=== PATIENT | female | born 1945 | race Caucasian/White ===

== ENCOUNTER 2016-12-06 21:07 | Inpatient (IN) | payer OTHER ==
--- NOTE | 2016-12-06 21:24 | PDOC ---
History of Present Illness <Kelsie Watkins - Last Filed: 12/07/16 00:23> - History of Present Illness Initial Comments: 12/06/16 22:41 The patient is a 71 year old female with a past medical hx of diabetes, hypercholesterolemia, hernia, and kidney stones who presents to the ED complaining of pain to her epigastric region radiating into the center of her back since 1200 this afternoon. The patient states she bent over to pick something up and suddenly felt pain to her epigastric region. She reports she felt the pain when she bent forward not when she stood back up straight. She reports the pain was radiating into her back between her shoulder blades, but now primarily feels the pain in the epigastric region while in the ED. She states the pain is worse when sitting down and exacerbated with inspiration. She rates the pain a 10/10 in severity, sharp, and constant. She has never felt pain like this in the past. The patient is also complaining of left leg pain for the past week. This pain is localized to the back of her left thigh. The patient reports waves of nausea but denies vomiting, SOB, chest pain, diarrhea, constipation <Radha Lemos - Last Filed: 12/07/16 00:31> - General Chief Complaint: Pain, Acute Stated Complaint: ABD PAIN Time Seen by Provider: 12/06/16 21:13 Past History - Past Medical History Diabetes: Yes Disorders: Yes (kidney stones) HTN: Yes Hypercholesterolemia: Yes Suicide Attempt (Hx): No - Immunization History Immunization Up to Date: Yes - Psycho/Social/Smoking Cessation Hx Anxiety: No Suicidal Ideation: No Smoking History: Never smoked Have you smoked in the past 12 months: No Hx Alcohol Use: No Drug/Substance Use Hx: No Substance Use Type: None Hx Substance Use Treatment: No <Kelsie Watkins - Last Filed: 12/07/16 00:23> <Radha Lemos - Last Filed: 12/07/16 00:31> - Past Medical History Allergies/Adverse Reactions: Allergies Allergy/AdvReac Type Severity Reaction Status Date / Time No Known Drug Allergies Allergy Verified 07/31/15 17:44 Home Medications: Ambulatory Orders Metformin HCl [Glucophage -] 500 mg PO BID 05/02/14 Simvastatin 20 mg PO HS 05/02/14 Lisinopril [Prinivil] 20 mg PO DAILY 04/17/15 Aspirin [Herminio Chewable] 81 mg PO DAILY 12/06/16 Cyanocobalamin (Vitamin B-12) [Vitamin B-12] 1,000 mcg PO DAILY 12/06/16 Sertraline HCl [Zoloft -] 100 mg PO DAILY 12/06/16 Review of Systems - Review of Systems Able to Perform ROS?: Yes Comments:: 12/06/16 22:41 CONSTITUTIONAL: Absent: fever, chills, diaphoresis, generalized weakness, malaise, loss of appetite HEENT: Absent: rhinorrhea, nasal congestion, throat pain, throat swelling, difficulty swallowing, mouth swelling, ear pain, eye pain, visual Changes CARDIOVASCULAR: Absent: chest pain, syncope, palpitations, irregular heart rate, lightheadedness , peripheral edema RESPIRATORY: Absent: cough, shortness of breath, dyspnea with exertion, orthopnea, wheezing, stridor, hemoptysis GASTROINTESTINAL: +Epigastric abdominal pain, nausea. Absent: abdominal distension, nausea, vomiting, diarrhea, constipation, melena, hematochezia GENITOURINARY: Absent: dysuria, frequency, urgency, hesitancy, hematuria, flank pain, genital pain MUSCULOSKELETAL: +Back pain. Absent: joint swelling SKIN: Absent: rash, itching, pallor HEMATOLOGIC/IMMUNOLOGIC: Absent: easy bleeding, easy bruising, lymphadenopathy, frequent infections ENDOCRINE: Absent: unexplained weight gain, unexplained weight loss, heat intolerance, cold intolerance NEUROLOGIC: Absent: headache, focal weakness or paresthesias, dizziness, unsteady gait, seizure, mental status changes, bladder or bowel incontinence PSYCHIATRIC: Absent: anxiety, depression, suicidal or homicidal ideation, hallucinations. <Radha Lemos - Last Filed: 12/07/16 00:31> *Physical Exam - Vital Signs Last Vital Signs Temp Pulse Resp BP Pulse Ox 97.9 F 67 18 152/82 100 12/06/16 21:18 12/06/16 21:18 12/06/16 21:18 12/06/16 21:18 12/06/16 21:18 <Kelsie Watkins - Last Filed: 12/07/16 00:23> - Vital Signs Last Vital Signs Temp Pulse Resp BP Pulse Ox 97.9 F 67 18 152/82 100 12/06/16 21:18 12/06/16 21:18 12/06/16 21:18 12/06/16 21:18 12/06/16 21:18 - Physical Exam Comments: 12/06/16 22:41 GENERAL: Well developed, well nourished. Awake and alert. No acute distress. HEENT: Normocephalic, atraumatic. PERRLA, EOMI. No conjunctival pallor. Sclera are non- icteric. Moist mucous membranes. Oropharynx is clear. NECK: Supple. Full ROM. No JVD. Carotid pulses 2+ and symmetric, without bruits. No thyromegaly. No lymphadenopathy. CARDIOVASCULAR: Regular rate and rhythm. No murmurs, rubs, or gallops. Distal pulses are 2+ and symmetric. PULMONARY: No evidence of respiratory distress. Lungs clear to auscultation bilaterally. No wheezing, rales or rhonchi. ABDOMINAL: +Distended, Soft, epigastric tenderness to deep palpation. No rebound or guarding. No organomegaly. Normoactive bowel sounds. MUSCULOSKELETAL Normal range of motion at all joints. No bony deformities or tenderness. No CVA tenderness. EXTREMITIES: No cyanosis. No clubbing. No edema. No calf tenderness. SKIN: Warm and dry. Normal capillary refill. No rashes. No jaundice. NEUROLOGICAL: Alert, awake, appropriate. Cranial nerves 2-12 intact. No deficits to light touch and temperature in face, upper extremities and lower extremities. No motor deficits in the in face, upper extremities and lower extremities. PSYCHIATRIC: Cooperative. Good eye contact. Appropriate mood and affect. <Radha Lemos - Last Filed: 12/07/16 00:31> Heart Score/ECG Review - ECG Impressions Comment:: 12/07/16 00:31 EKG NSR at a rate of 69 BPM <Radha Lemos - Last Filed: 12/07/16 00:31> ED Treatment Course - LABORATORY CBC & Chemistry Diagram: 12/06/16 22:35 12/06/16 22:35 <Kelsie Watkins - Last Filed: 12/07/16 00:23> - LABORATORY CBC & Chemistry Diagram: 12/06/16 22:35 12/06/16 22:35 - RADIOLOGY Radiograph Interpretation: 12/06/16 23:35 Right upper quadrant abdomen ultrasound Clinical information: epigastric pain radiating to back Several gallbladder calculi are noted the most prominent measuring 2.7 cm in diameter. No definite gallbladder overdistention is seen however there is mild diffuse nonspecific gallbladder wall thickening. No pericholecystic fluid is identified. The common bile duct is dilated with a 1.2 cm diameter. No obvious intraductal calculus is seen. Transabdominal sonography is moderately sensitive in this regard. There is mild hepatomegaly. No obvious hepatic mass lesion is noted. There is no definite abnormal hepatic echotexture. The pancreas is not well visualized due to obscuring bowel gas. There is no right-sided hydronephrosis. No free intraperitoneal fluid. IMPRESSION: Cholelithiasis is identified. There is mild diffuse nonspecific gallbladder wall thickening which may be on the basis of acute or chronic cholecystitis. No previous ultrasound studies are available at this facility for direct comparison. The common bile duct is dilated with a 1.2 cm diameter. No definite biliary tract dilatation was present at the time of an abdomen CT exam of 04/17/2015. MRI/MRCP evaluation may be considered. If there is a significant contraindication to performance of MRI/MRCP correlate with CT. The pancreas is obscured due to overlapping bowel gas. Reported By: Florentino Fleming MD 12/06/16 [id number] <Radha Lemos - Last Filed: 12/07/16 00:31> Medical Decision Making - Medical Decision Making 12/07/16 00:23 71 yo female p/w epigastric pain and nausea that started today PMH diabetes,kidney stones Abd exam-sl distended,no rebound but epigastric tenderness to deep palpation labs reviewed and her LFT are very elevated and lipase about 600 gallbaldder US shows dilated CBD and inflamed gallbladder -pt received anti emetics,IV fluid, Antibiotics and pain medications Diff diag: cholecystitis, pancreatitis -case discussed with hospitalist and agreed to med/surg admission plan GI consult, MRCP later in the day <Kelsie Watkins - Last Filed: 12/07/16 00:23> *DC/Admit/Observation/Transfer - Discharge Dispostion Admit: Yes <Kelsie Watkins - Last Filed: 12/07/16 00:23> - Attestations Scribe Attestion: 12/06/16 22:42 Documentation prepared by Radha Lemos, acting as medical data analyst for Kelsie Watkins MD/DO. <Radha Lemos - Last Filed: 12/07/16 00:31> Diagnosis at time of Disposition: Elevated liver enzymes, Acute gallstone pancreatitis Diabetes mellitus Qualifiers: Diabetes mellitus type: type 2 Diabetes mellitus complication status: with hyperglycemia Diabetes mellitus intermediate insulin use: without intermediate use Qualified Code(s): E11.65 - Type 2 diabetes mellitus with hyperglycemia - Referrals Referrals: Hero Olivia MD [Primary Care Provider] -
[2016-12-06 22:47] LABS: EOSINOPHIL 0.3 % (0-4.5); MCH 29.8 pg (25.7-33.7); MCHC 33.8 g/dl (32.0-36.0); MEAN CELL VOLUME 88.2 fl (80-96); MEAN PLT VOLUME 7.4 fl (7.5-11.1); NEUTROPHILS 85.6 % (42.8-82.8); PLATELET COUNT 254 K/MM3 (134-434); RDW 14.7 % (11.6-15.6); WHITE BLOOD COUNT 8.7 K/mm3 (4.0-10.0)
[2016-12-06 22:48] LABS: URINE APPEARANCE CLEAR; URINE BILIRUBIN NEGATIVE (NEGATIVE); URINE BLOOD NEGATIVE (NEGATIVE); URINE COLOR YELLOW; URINE GLUCOSE (UA) NEGATIVE (NEGATIVE); URINE KETONE TRACE (NEGATIVE); URINE LEUK ESTERASE NEGATIVE (NEGATIVE); URINE NITRITE NEGATIVE (NEGATIVE); URINE PROTEIN NEGATIVE (NEGATIVE); URINE UROBILINOGEN NEGATIVE E.U./dl (0.2-1.0)
[2016-12-06 23:08] LABS: ALBUMIN 3.9 g/dl (3.4-5.0); AMYLASE 65 U/L (25-115); ANION GAP 9 (8-16); BILIRUBIN,TOTAL 1.8 mg/dL (0.2-1.0); CO2 26 mmol/L (21-32); CREATININE 0.7 mg/dL (0.55-1.02); GLUCOSE,RANDOM 139 mg/dL (74-106); SGOT/AST 377 U/L (15-37); SGPT/ALT 158 U/L (12-78); TOT PROT 7.5 g/dl (6.4-8.2)
[2016-12-06 23:10] LABS: ALK PHOS 175 U/L (45-117); TROPONIN I < 0.02 ng/ml (0.00-0.05)
[2016-12-06 23:17] LABS: INR 1.09 (0.82-1.09)
[2016-12-06] MEDS ORDERED: PIPERACILLIN/TAZOB 3.375 GM 3.375 GM in DEXTROSE 5%-WATER - 50 ML IVPB ONE (23:35)
[2016-12-06] MEDS ORDERED: HYDROmorphone HCL CARPU-JECT 1 MG/1 ML DISP.SYRIN ONE (23:43)
[2016-12-06] MEDS ORDERED: PIPERACILLIN/TAZOB 3.375 GM 50 ML IVPB ONE (23:43)
[2016-12-06] MEDS ORDERED: KETOROLAC TROMETHAMINE 30 MG/1 ML VIAL IVPUSH ONE (23:44)
[2016-12-06] MEDS ORDERED: KETOROLAC TROMETHAMINE 30 MG/1 ML VIAL ONE (23:45)
[2016-12-06] MEDS: HYDROmorphone HCL CARPU-JECT 1 MG/1 ML DISP.SYRIN IVPUSH ONE ×2 (23:50)
--- NOTE | 2016-12-07 00:10 | PN ---
<Edward Addisonmacario - Last Filed: 12/07/16 00:10> Teaching Attending Note Name of Resident: Souleymane Canas ATTENDING PHYSICIAN STATEMENT I saw and evaluated the patient. I reviewed the resident's note and discussed the case with the resident. I agree with the resident's findings and plan as documented. SUBJECTIVE: OBJECTIVE: ASSESSMENT AND PLAN: <Susan Joiner - Last Filed: 12/07/16 01:18> Teaching Attending Note ATTENDING PHYSICIAN STATEMENT I saw and evaluated the patient. I reviewed the resident's note and discussed the case with the resident. I agree with the resident's findings and plan as documented. SUBJECTIVE: The patient is a 71 yo F with PMHx of Diabetes, HLD, hernia and nephrolithiasis who presents with epigastric pain radiating to her back and and shoulder blades. OBJECTIVE: Last Vital Signs Temp Pulse Resp BP Pulse Ox 97.9 F 67 18 152/82 100 12/06/16 21:18 12/06/16 21:18 12/06/16 21:18 12/06/16 21:18 12/06/16 21:18 GEN: NAD HEENT: NCAT, PERRL CARD: RRR, S1 S2 RESP: CTAB ABD: NT, BWS x4 +McBurney's sign EXT: - CCE CBCD WBC 8.7 K/mm3 (4.0-10.0) 12/06/16 22:35 RBC 4.60 M/mm3 (3.60-5.2) 12/06/16 22:35 Hgb 13.7 GM/dL (10.7-15.3) 12/06/16 22:35 Hct 40.6 % (32.4-45.2) 12/06/16 22:35 MCV 88.2 fl (80-96) 12/06/16 22:35 MCHC 33.8 g/dl (32.0-36.0) 12/06/16 22:35 RDW 14.7 % (11.6-15.6) 12/06/16 22:35 Plt Count 254 K/MM3 (134-434) 12/06/16 22:35 MPV 7.4 fl (7.5-11.1) L 12/06/16 22:35 CMP Sodium 140 mmol/L (136-145) 12/06/16 22:35 Potassium 4.3 mmol/L (3.5-5.1) D 12/06/16 22:35 Chloride 105 mmol/L (98-107) 12/06/16 22:35 Carbon Dioxide 26 mmol/L (21-32) 12/06/16 22:35 Anion Gap 9 (8-16) 12/06/16 22:35 BUN 10 mg/dL (7-18) 12/06/16 22:35 Creatinine 0.7 mg/dL (0.55-1.02) 12/06/16 22:35 Creat Clearance w eGFR > 60 (>60) 12/06/16 22:35 Calcium 9.0 mg/dL (8.5-10.1) 12/06/16 22:35 Total Bilirubin 1.8 mg/dL (0.2-1.0) H D 12/06/16 22:35 AST 377 U/L (15-37) H D 12/06/16 22:35 ALT 158 U/L (12-78) H D 12/06/16 22:35 Alkaline Phosphatase 175 U/L (45-117) H 12/06/16 22:35 Total Protein 7.5 g/dl (6.4-8.2) 12/06/16 22:35 Albumin 3.9 g/dl (3.4-5.0) D 12/06/16 22:35 Imaging: Abdomen US IMPRESSION: Cholelithiasis is identified. There is mild diffuse nonspecific gallbladder wall thickening which may be on the basis of acute or chronic cholecystitis. No previous ultrasound studies are available at this facility for direct comparison. The common bile duct is dilated with a 1.2 cm diameter. No definite biliary tract dilatation was present at the time of an abdomen CT exam of 04/17/2015. MRI/MRCP evaluation may be considered. If there is a significant contraindication to performance of MRI/MRCP correlate with CT. The pancreas is obscured due to overlapping bowel gas. Reported By: Florentino Fleming MD ASSESSMENT AND PLAN: The patient is a 71 yo F with PMHx of Diabetes, HLD, hernia and nephrolithiasis who presents with epigastric pain found to have pancreatitis most likely as a result of gallstones. 1.)Acute Gallstone Pancreatitis - NPO - IVF - MRCP in AM - Surgery consult - S/p Zosyn in ED - Pain control - Coags in AM - Type and Screen 2.) Diabetes - Fingersticks RAISS - Hold metformin 3.) HTN - Hold lisinopril for now 4.)HLD - Hold statin 5.)DVT PPx - SCDs low risk Admit to Med surg Documentation prepared by Susan Joiner, acting as durable medical equipment repairer for Maryam Addison MD.
[2016-12-07] MEDS ORDERED: ONDANSETRON 4 MG/2 ML VIAL IVPB PRN (00:17)
[2016-12-07] MEDS ORDERED: morphine CARPU-JECT 4 MG/1 ML DISP.SYRIN IVPUSH PRN (00:17)
[2016-12-07] MEDS: SODIUM CHLORIDE 1,000 ML IV SCH (00:36)
--- NOTE | 2016-12-07 01:20 | MSN ---
Admitting History and Physical - Admission Chief Complaint: abdominal pain History of Present Illness: 71 yo female with pmhx of cholelithiasis, HTN, HLD, DM, kidney stones and hiatal hernia presents with acute onset, sharp, constant 10/10 abdominal that radiates to the back since noon yesterday that occurred when she was bending over. She says she feels better when she is walking around. The pain gets worse when she sits. The pain does not get worse or better when shes eats food. She says she does not eat a good diet. Since she has had pain medicine she is not in any discomfort. She denies headache, weakness, dizziness, fever, changes in urination and bowel movements. She noted that her abdomen is more distended and that she is experiencing nausea. History Source: Patient Limitations to Obtaining History: No Limitations - Past Medical History Cardiovascular: Yes: HTN, Hyperlipdemia Gastrointestinal: Yes: Hiatal Hernia Hepatobiliary: Yes: Cholelithiasis Renal/: Yes: Renal Calculi, UTI Endocrine: Yes: Diabetes Mellitus - Smoking History Smoking history: Never smoked Have you smoked in the past 12 months: No - Alcohol/Substance Use Hx Alcohol Use: No History of Substance Use: reports: None - Social History ADL: Independent History of Recent Travel: No Home Medications - Allergies Allergies/Adverse Reactions: Allergies Allergy/AdvReac Type Severity Reaction Status Date / Time No Known Drug Allergies Allergy Verified 07/31/15 17:44 - Home Medications Home Medications: Ambulatory Orders Metformin HCl [Glucophage -] 500 mg PO BID 05/02/14 Simvastatin 20 mg PO HS 05/02/14 Lisinopril [Prinivil] 20 mg PO DAILY 04/17/15 Aspirin [Herminio Chewable] 81 mg PO DAILY 12/06/16 Cyanocobalamin (Vitamin B-12) [Vitamin B-12] 1,000 mcg PO DAILY 12/06/16 Sertraline HCl [Zoloft -] 100 mg PO DAILY 12/06/16 Family Disease History - Family Disease History Family Disease History: [place]: Father Review of Systems - Review of Systems Constitutional: reports: Chills, Diaphoresis Cardiovascular: reports: No Symptoms Respiratory: reports: No Symptoms Gastrointestinal: reports: Abdominal Pain, Nausea Genitourinary: reports: No Symptoms Musculoskeletal: reports: Back Pain Neurological: reports: No Symptoms Physical Examination Vital Signs: Vital Signs Temperature 97.9 F 12/06/16 21:18 Pulse Rate 67 12/06/16 21:18 Respiratory Rate 18 12/07/16 01:14 Blood Pressure 152/82 12/06/16 21:18 O2 Sat by Pulse Oximetry (%) 100 12/07/16 01:14 Constitutional: Yes: Well Nourished, No Distress, Calm Eyes: Yes: WNL, Conjunctiva Clear HENT: Yes: WNL, Atraumatic, Normocephalic Cardiovascular: Yes: WNL, Regular Rate and Rhythm, S1, S2 Respiratory: Yes: WNL, Regular, CTA Bilaterally Gastrointestinal: Yes: WNL, Normal Bowel Sounds, Soft, Distention, Hernia, Tenderness, Tenderness, Epigastrium Edema: No Neurological: Yes: WNL, Alert, Oriented Psychiatric: Yes: WNL, Alert, Oriented Imaging - Results Chest X-ray: Image Reviewed Ultrasound: Report Reviewed (cholelithiasis and CBD dilation) EKG: Pending Assessment/Plan 71 yo female with pmhx of cholelithiasis, HTN, HLD, DM, kidney stone and hiatal hernia presents with acute onset, sharp, constant 10/10 abdominal that radiates to the back since noon yesterday that occurred when she was bending over. gallstone pancreatitis and cholecystitis -elevated LFT, lipase, pmhx of gallstones -NPO -continue zosyn -IV NS 100ml.hr -pain medication-IV morphine 2mg q6h prn -zofran for nausea -order mrcp -GI consult -Surg consult for possible cholecystectomy DM -hold metformin and start insulin sliding scale -monitor blood glucose HTN -hold lisinopril patient NPO HLD -hold statin Fluid-NS 100ml/hr electrolytes-repeat in morning nutrition-NPO DVT -SCDs b/l GI Pro: IV protonix 40 mg IV daily dispo admitting med-surg
[2016-12-07 04:23] VITALS: BMI 32.8
[2016-12-07] MEDS: INSULIN SLIDING SCALE (NOVOLOG) 1 VIAL SQ SCH ×4 (06:21→21:30)
[2016-12-07 08:27] LABS: BASOPHIL 0.6 % (0-2.0); EOSINOPHIL 0.7 % (0-4.5); MCH 29.5 pg (25.7-33.7); MCHC 33.5 g/dl (32.0-36.0); MEAN CELL VOLUME 88.1 fl (80-96); NEUTROPHILS 77.7 % (42.8-82.8); PLATELET COUNT 216 K/MM3 (134-434); RDW 14.8 % (11.6-15.6); WHITE BLOOD COUNT 6.8 K/mm3 (4.0-10.0)
[2016-12-07 08:48] LABS: INR 1.13 (0.82-1.09); PROTHROMBIN TIME (PATIENT) 12.5 SEC (9.98-11.88)
[2016-12-07 08:50] LABS: ACTIVATED PTT 32.8 SECONDS (26.9-34.4)
[2016-12-07 08:52] LABS: ALBUMIN 3.3 g/dl (3.4-5.0); ANION GAP 8 (8-16); CALCIUM 8.6 mg/dL (8.5-10.1); CO2 26 mmol/L (21-32); CREATININE 0.7 mg/dL (0.55-1.02); GLUCOSE,RANDOM 118 mg/dL (74-106); MAGNESIUM 2.3 mg/dL (1.8-2.4); SGPT/ALT 173 U/L (12-78)
[2016-12-07 08:58] LABS: ALK PHOS 189 U/L (45-117); BILIRUBIN,TOTAL 2.6 mg/dL (0.2-1.0); CHOLESTEROL 209 mg/dL (50-200); LDL CHOLESTEROL (ONLY SJRH) 154 mg/dL (5-100); PHOSPHOROUS 2.9 mg/dL (2.5-4.9); SGOT/AST 301 U/L (15-37); TOT PROT 6.3 g/dl (6.4-8.2)
[2016-12-07 08:59] LABS: ALBUMIN 3.3 g/dl (3.4-5.0); BILIRUBIN,TOTAL 2.6 mg/dL (0.2-1.0); TOT PROT 6.5 g/dl (6.4-8.2)
[2016-12-07] MEDS: PANTOPRAZOLE SODIUM 100 ML IVPB SCH (09:26)
--- NOTE | 2016-12-07 10:53 | CON.GI ---
Consult Consult Specialty:: Gastroenterology Referred by:: hospitalist Reason for Consultation:: abdominal pain - History of Present Illness Chief Complaint: abdominal pain History of Present Illness: this is a 71-year-old female with a history of hyperlipidemia diabetes renal calculi and gallstones who was admitted to the hospital with abdominal pain. She was in a usual state of health yesterday when she developed sudden onset of epigastric pain that radiated to her back and across her shoulders. Pain at times was positional but it continued she came into the emergency room. Evaluation in the emergency room consisted of a CT scan and ultrasound and some lab work. She had an elevated lipase ultrasound showed thickening of the gallbladder wall with some dilation of the common bile duct. No evidence of any gallstones in the common bile duct. CT scan revealed a normal-looking gallbladder with stones and an atrophic pancreas with no peripancreatic fluid to suggest chronic or acute pancreatitis. Her liver was fatty infiltrated on the CT scan. Her lab work revealed an elevated bilirubin and transaminases and elevated alkaline phosphatase. She had no fever.. Currently she complains of some mild epigastric pain. She is awaiting her MRI. She has no nausea vomiting. She had a bowel movement. There is no rectal bleeding or melena. There is no hematemesis. She does have a history of kidney stones. Her urine is normal there is no hematuria. There is no flank pain. - History Source History Provided By: Patient Limitations to Obtaining History: No Limitations - Past Medical History Cardio/Vascular: Yes: HTN, Hyperlipdemia Gastrointestinal: Yes: Hiatal Hernia, Other ( Gallstones?) Hepatobiliary: Yes: Cholelithiasis Renal/: Yes: Renal Calculi, UTI ...: No Heme/Onc: No: Anemia, B12 Deficiency, Bleeding Disorder, Cancer, Current Chemotherapy, Current Radiation Therapy, Hemochromatosis, Hypercoaguable State, Myeloproliferative Synd, Sickle Cell Disease, Sickle Cell Trait, Thrombocytopenia, Other Infectious Disease: No: AIDS, C-Diff, Herpes Zoster, HIV, MRSA, STD's, Tuberculosis, VREF, Other Psych: No: Addictions, Anxiety, Bipolar, Depression, Panic, Psychosis, Schizophrenia, Other Musculoskeletal: No: Bursitis, Chronic low back pain, Hemiparesis, Hemiplegia, Osteoarthritis, Paraplegia, Other ENT: No: Allergic Rhinitis, Sinusitis, Other Endocrine: Yes: Diabetes Mellitus. No: [place]'s Disease, [place]'s Disease, Diabetes Insipidus, Hyperparathyroidism, Hyperthyroidism, Hypothyroidism, Osteopenia, SIADH, Other - Alcohol/Substance Use Hx Alcohol Use: No History of Substance Use: reports: None - Smoking History Smoking history: Never smoked Have you smoked in the past 12 months: No - Social History ADL: Independent History of Recent Travel: No Home Medications - Allergies Allergies/Adverse Reactions: Allergies Allergy/AdvReac Type Severity Reaction Status Date / Time No Known Drug Allergies Allergy Verified 07/31/15 17:44 - Home Medications Home Medications: Ambulatory Orders Metformin HCl [Glucophage -] 500 mg PO BID 05/02/14 Simvastatin 20 mg PO HS 05/02/14 Lisinopril [Prinivil] 20 mg PO DAILY 04/17/15 Aspirin [Herminio Chewable] 81 mg PO DAILY 12/06/16 Cyanocobalamin (Vitamin B-12) [Vitamin B-12] 1,000 mcg PO DAILY 12/06/16 Sertraline HCl [Zoloft -] 100 mg PO DAILY 12/06/16 Family Disease History - Family Disease History Family History: Unremarkable Family Disease History: CA: Father Review of Systems - Review of Systems Constitutional: reports: Loss of Appetite Eyes: reports: No Symptoms HENT: reports: No Symptoms Neck: reports: No Symptoms Cardiovascular: reports: No Symptoms Respiratory: reports: No Symptoms, Other ( Increased abdominal pain with inspiration) Gastrointestinal: reports: Abdominal Pain, Nausea Genitourinary: reports: No Symptoms Musculoskeletal: reports: No Symptoms Integumentary: reports: No Symptoms Neurological: reports: No Symptoms Endocrine: reports: No Symptoms Hematology/Lymphatic: reports: No Symptoms Psychiatric: reports: No Symptoms Physical Exam-GI Vital Signs: Vital Signs Temperature 97.8 F 12/07/16 05:30 Pulse Rate 68 12/07/16 05:30 Respiratory Rate 16 12/07/16 05:30 Blood Pressure 136/62 12/07/16 05:30 O2 Sat by Pulse Oximetry (%) 99 12/07/16 04:16 Constitutional: Yes: No Distress, Obese Eyes: Yes: Conjunctiva Clear HENT: Yes: Normocephalic Cardiovascular: Yes: Regular Rate and Rhythm Respiratory: Yes: Regular Gastrointestinal Inspection: Yes: Distention ...Auscultate: Yes: Normoactive Bowel Sounds ...Palpate: Yes: Tenderness, Epigastium Musculoskeletal: Yes: WNL Extremities: Yes: WNL Neurological: Yes: WNL Psychiatric: Yes: WNL Labs: CBC, BMP 12/07/16 07:45 12/07/16 07:45 INR, PTT INR 1.13 (0.82-1.09) 12/07/16 07:45 Imaging - Results Cat Scan: Image Reviewed Ultrasound: Image Reviewed MRI: Pending Problem List - Problems (1) Acute gallstone pancreatitis Assessment/Plan: scenario is consistent with gallstone pancreatitis. However imaging studies especially the CT scan did not suggest acute cholecystitis. Her laboratory findings show clearance of her lipase but consistent elevation of bilirubin which is mostly direct transaminases and alkaline phosphatase. What is needed here as an MRI to rule out common bile duct stone I will also send acute hepatitis studies. She is to remain n.p.o. she still having some minor abdominal pain she should continue her IV hydration surgical consult was called. Code(s): K85.1 - BILIARY ACUTE PANCREATITIS * DO NOT USE * (2) Acute cholecystitis Assessment/Plan: As above Code(s): K81.0 - ACUTE CHOLECYSTITIS (3) Elevated liver enzymes Assessment/Plan: as above Code(s): R74.8 - ABNORMAL LEVELS OF OTHER SERUM ENZYMES (4) Diabetes mellitus Assessment/Plan: would hold metformin for any further contrast studies Code(s): E11.9 - TYPE 2 DIABETES MELLITUS WITHOUT COMPLICATIONS Qualifiers: Diabetes mellitus type: type 2 Diabetes mellitus complication status: with hyperglycemia Diabetes mellitus skilled nursing insulin use: without parts counterman use Qualified Code(s): E11.65 - Type 2 diabetes mellitus with hyperglycemia; 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
--- NOTE | 2016-12-07 13:57 | EKG ---
Test Reason : Blood Pressure : / mmHG Vent. Rate : 069 BPM Atrial Rate : 069 BPM P-R Int : 196 ms QRS Dur : 084 ms QT Int : 414 ms P-R-T Axes : 055 -06 040 degrees QTc Int : 443 ms NORMAL SINUS RHYTHM CANNOT RULE OUT ANTERIOR INFARCT , AGE UNDETERMINED ABNORMAL ECG WHEN COMPARED WITH ECG OF 17-APR-2015 22:10, NO SIGNIFICANT CHANGE WAS FOUND Confirmed by BOB ADAN, DIMITRI ([id number]) on 12/07/2016 1:56:52 PM Referred By: Confirmed By:DIMITRI ROJAS MD
--- NOTE | 2016-12-07 15:04 | CONSULT ---
- Consultation REQUESTING PROVIDER: Azael CONSULT REQUEST: We have been asked to surgically evaluate this patient for abdominal pain PCP:Zurdo Badillo HISTORY OF PRESENT ILLNESS:Patient w/ known cholelithiasis presented w/ sudden onset epigastric pain and nauasea of shor t duration; she came to the hospital for evaluation. NOC; she has no c/o now. PMHx: DM/hyperlipidemaia/kidnet stones PSHx: Home Medications Medication Instructions Recorded Metformin HCl [Glucophage -] 500 mg PO BID 05/02/14 Simvastatin 20 mg PO HS 05/02/14 Lisinopril [Prinivil] 20 mg PO DAILY 04/17/15 Aspirin [Herminio Chewable] 81 mg PO DAILY 12/06/16 Cyanocobalamin (Vitamin B-12) 1,000 mcg PO DAILY 12/06/16 [Vitamin B-12] Sertraline HCl [Zoloft -] 100 mg PO DAILY 12/06/16 Allergies Allergy/AdvReac Type Severity Reaction Status Date / Time No Known Drug Allergies Allergy Verified 07/31/15 17:44 REVIEW OF SYSTEMS: reviewed PHYSICAL EXAM: GENERAL: Awake, alert, and fully oriented, in no acute distress. HEAD: Normal with no signs of trauma. EYES: PERRL, sclera anicteric, conjunctiva clear. NECK: Normal ROM, supple without lymphadenopathy, JVD, or masses. ABDOMEN: Soft, nontender, not distended, normoactive bowel sounds, no guarding, no rebound, no masses. No organomegaly. umbilical hernia MUSCULOSKELETAL: Normal ROM at all joints. No bony deformities or tenderness. No CVA tenderness. UPPER EXTREMITIES: 2+ pulses, warm, well-perfused. No cyanosis. Cap refill <2 seconds. No peripheral edema. LOWER EXTREMITIES: 2+ pulses, warm, well-perfused. No calf tenderness. No peripheral edema. NEUROLOGICAL: Normal speech, gait not observed. PSYCH: Cooperative. Good eye contact. Appropriate mood and affect. SKIN: Warm, dry, normal turgor, no rashes or lesions noted. Vital Signs Temperature 98.2 F 12/07/16 09:00 Pulse Rate 76 12/07/16 09:00 Respiratory Rate 18 12/07/16 09:00 Blood Pressure 135/72 12/07/16 09:00 O2 Sat by Pulse Oximetry (%) 99 12/07/16 09:00 Lab Results WBC 6.8 K/mm3 (4.0-10.0) 12/07/16 07:45 RBC 4.35 M/mm3 (3.60-5.2) 12/07/16 07:45 Hgb 12.8 GM/dL (10.7-15.3) 12/07/16 07:45 Hct 38.3 % (32.4-45.2) 12/07/16 07:45 MCV 88.1 fl (80-96) 12/07/16 07:45 MCHC 33.5 g/dl (32.0-36.0) 12/07/16 07:45 RDW 14.8 % (11.6-15.6) 12/07/16 07:45 Plt Count 216 K/MM3 (134-434) 12/07/16 07:45 Sodium 140 mmol/L (136-145) 12/07/16 07:45 Potassium 3.9 mmol/L (3.5-5.1) 12/07/16 07:45 Chloride 106 mmol/L (98-107) 12/07/16 07:45 Carbon Dioxide 26 mmol/L (21-32) 12/07/16 07:45 Anion Gap 8 (8-16) 12/07/16 07:45 BUN 11 mg/dL (7-18) 12/07/16 07:45 Creatinine 0.7 mg/dL (0.55-1.02) 12/07/16 07:45 Random Glucose 118 mg/dL (74-106) H 12/07/16 07:45 Calcium 8.6 mg/dL (8.5-10.1) 12/07/16 07:45 INR 1.13 (0.82-1.09) 12/07/16 07:45 US/CT/labs reviewed IMP:Cholelithiasis w/o evidence of acute cholecystitis; dilated CBD and elevated LFT's. PLAN: Suggest NPO/IVF/trend LFT's MRCP; will f/u. Bj Ruiz MD [facility] Visit type - Case Type Case Type: ED Admission - Emergency Emergency Visit: Yes ED Registration Date: 12/07/16 Care time: The patient presented to the Emergency Department on the above date and was hospitalized for further evaluation of their emergent condition. - New patient This patient is new to me today: Yes Date on this admission: 12/07/16 - Critical Care Critical Care patient: No
--- NOTE | 2016-12-07 15:19 | PN ---
<Kassandra Iniguez - Last Filed: 12/07/16 15:41> Physical Exam: SUBJECTIVE: Patient seen and examined. Complaining of left lower extremity pain. Patient denies abdominal pain, fever, chills, n, v. OBJECTIVE: Vital Signs Period Temp Pulse Resp BP Sys/Arita Pulse Ox Last 24 Hr 97.8 F-98.2 F 68-76 16-18 135-136/62-72 99-100 GENERAL: The patient is awake, alert, and fully oriented, in no acute distress. HEAD: Normal with no signs of trauma. EYES: PERRL, extraocular movements intact, sclera anicteric, conjunctiva clear. No ptosis. ENT: Ears normal, nares patent, oropharynx clear without exudates, moist mucous membranes. NECK: Trachea midline, full range of motion, supple. LUNGS: Breath sounds equal, clear to auscultation bilaterally, no wheezes, no crackles, no accessory muscle use. HEART: Regular rate and rhythm, S1, S2 without murmur, rub or gallop. ABDOMEN: Soft, tender to palpation in LUQ, nondistended, normoactive bowel sounds, no guarding, no rebound, no hepatosplenomegaly, no masses. umbilical hernia EXTREMITIES: 2+ pulses, warm, well-perfused, no edema. linda sign +OSCAR NEUROLOGICAL: Cranial nerves II through XII grossly intact. Normal speech, gait not observed. PSYCH: Normal mood, normal affect. SKIN: Warm, dry, normal turgor, no rashes or lesions noted Laboratory Results - last 24 hr 12/07/16 12/07/16 12/07/16 06:19 07:45 07:45 WBC 6.8 RBC 4.35 Hgb 12.8 Hct 38.3 MCV 88.1 MCHC 33.5 RDW 14.8 Plt Count 216 MPV 7.0 L Neutrophils % 77.7 Lymphocytes % 10.8 D Monocytes % 10.2 D Eosinophils % 0.7 D Basophils % 0.6 INR PTT (Actin FS) Sodium 140 Potassium 3.9 Chloride 106 Carbon Dioxide 26 Anion Gap 8 BUN 11 Creatinine 0.7 Creat Clearance w eGFR > 60 POC Glucometer 109 Random Glucose 118 H Calcium 8.6 Phosphorus 2.9 Magnesium 2.3 Total Bilirubin 2.6 H D Direct Bilirubin AST 301 H D ALT 173 H Alkaline Phosphatase 189 H Total Protein 6.3 L Albumin 3.3 L Triglycerides 198 H D Cholesterol 209 H Total LDL Cholesterol 154 H HDL Cholesterol 36 L Lipase Active Medications Generic Name Dose Route Start Last Admin Trade Name Holly PRN Reason Stop Dose Admin Sodium Chloride 1,000 mls @ 100 mls/hr 12/07/16 00:30 12/07/16 00:36 Normal Saline - IV 100 mls/hr ASDIR KARLA Administration Pantoprazole Sodium 100 mls @ 200 mls/hr 12/07/16 10:00 12/07/16 09:26 Protonix 40mg Ivpb (Pre-Docked) IVPB 200 mls/hr DAILY KARLA Administration Insulin Aspart 1 vial 12/07/16 07:00 12/07/16 11:08 Novolog Vial Sliding Scale - SQ Not Given ACHS KARLA Protocol Lorazepam 1 mg 12/07/16 08:43 Ativan Injection - IVPUSH 12/07/16 08:44 ONCE ONE Morphine Sulfate 2 mg 12/07/16 00:17 Morphine Injection - IVPUSH Q4H PRN PAIN Ondansetron HCl 4 mg 12/07/16 00:17 Zofran Injection IVPB Q4H PRN NAUSEA AND/OR VOMITING Imaging: Abdomen US IMPRESSION: Cholelithiasis is identified. There is mild diffuse nonspecific gallbladder wall thickening which may be on the basis of acute or chronic cholecystitis. No previous ultrasound studies are available at this facility for direct comparison. The common bile duct is dilated with a 1.2 cm diameter. No definite biliary tract dilatation was present at the time of an abdomen CT exam of 04/17/2015. MRI/MRCP evaluation may be considered. If there is a significant contraindication to performance of MRI/MRCP correlate with CT. The pancreas is obscured due to overlapping bowel gas. IMPRESSION: 1. Cholelithiasis and diffuse fatty infiltration of the liver. 2. Bilateral nephrolithiasis with no evidence of hydronephrosis or acute renal pathology. 3. No evidence of pancreatitis or acute pathology within the abdomen or pelvis. ASSESSMENT/PLAN: 71 year old female with a PMH of diabetes mellitus II, HTN , HLD, hernia and nephrolithiasis who presents with epigastric pain radiating to her back and and shoulder blades. 1. Acute gallstone cholecystitis vs gallstone pancreatitis; -CT abdomen did not show inflamed pancreas; although there is significant dilation of the common bile duct, elevated lipase, elevated bili and transaminiase -US shows many gallbladder calculi; one measuring 2.7cm; -Pending MRCP -keep NPO, IVF, pain controlled, protonix 40mg IVPB -received antibiotic zosyn in ER; -appreciate GI and surgery consult 2. Diabetes Mellitus type II -hold home metformin -fingertiscks ACHS -insulin SS 3. HTN -Hold lisinopril for now 4. HLD -Hold statin for now 5. OSCAR pain: -vascular study negative for for DVT 6. Elevated transaminases: -AST/ALT: 301/173 -diffuse fatty liver on on CT abdomen -may also be from obstruction, pending MRCP results 7. 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: without senior living use Qualified Code(s): E11.65 - Type 2 diabetes mellitus with hyperglycemia; Z79.4 - FDC (current) use of insulin (3) Elevated liver enzymes Code(s): R74.8 - ABNORMAL LEVELS OF OTHER SERUM ENZYMES (4) HLD (hyperlipidemia) Code(s): E78.5 - HYPERLIPIDEMIA, UNSPECIFIED (5) Hypertension Code(s): I10 - ESSENTIAL (PRIMARY) HYPERTENSION (6) Renal calculi Code(s): N20.0 - CALCULUS OF KIDNEY (7) Acute cholecystitis Code(s): K81.0 - ACUTE CHOLECYSTITIS Visit type - Emergency Visit Emergency Visit: Yes ED Registration Date: 12/07/16 Care time: The patient presented to the Emergency Department on the above date and was hospitalized for further evaluation of their emergent condition. - New Patient This patient is new to me today: Yes Date on this admission: 12/07/16 - Critical Care Critical Care patient: No <Zurdo Badillo - Last Filed: 12/08/16 14:35> Physical Exam: ATTENDING PHYSICIAN STATEMENT I saw and evaluated the patient. I reviewed the resident's note and discussed the case with the resident. I agree with the resident's findings and plan as documented. SUBJECTIVE: seen and evaluated at the bedside OBJECTIVE: resting comfortably in bed ASSESSMENT AND PLAN: 71 yo female with pmhx of cholelithiasis, HTN, HLD, DM, kidney stones and hiatal hernia admitted for acute cholestasis Cholestasis -abd pain much improved -LFT's trending down so likely had transient blockage and now passed stone -follow up MRCP -follow up GI consult -follow up general surgery consult
--- NOTE | 2016-12-07 16:18 | HP ---
CHIEF COMPLAIN: pain abdomen HISTORY OF PRESENT ILLNESS: 71 yo female with pmhx of cholelithiasis, HTN, HLD, DM, kidney stones and hiatal hernia presents with acute onset, sharp, constant 10/10 abdominal that radiates to the back since noon yesterday that occurred when she was bending over. She says she feels better when she is walking around. The pain gets worse when she sits. The pain does not get worse or better when shes eats food. She says she does not eat a good diet. Since she has had pain medicine she is not in any discomfort. She denies headache, weakness, dizziness, fever, changes in urination and bowel movements. She noted that her abdomen is more distended and that she is experiencing nausea. ER course was notable for: (1) cbc, bmp, lipase (2) IV fluid, Ct abdomen (3)zosyn Recent Travel: no PAST MEDICAL HISTORY: cholelithiasis, HTN, HLD, DM, kidney stones and hiatal hernia PAST SURGICAL HISTORY: no Social History: Smoking: no Alcohol: no Drugs: no Family History: no relevant family history Allergies No Known Drug Allergies Allergy (Verified 07/31/15 17:44) HOME MEDICATIONS: Home Medications Medication Instructions Recorded Metformin HCl [Glucophage -] 500 mg PO BID 05/02/14 Simvastatin 20 mg PO HS 05/02/14 Lisinopril [Prinivil] 20 mg PO DAILY 04/17/15 Aspirin [Herminio Chewable] 81 mg PO DAILY 12/06/16 Cyanocobalamin (Vitamin B-12) 1,000 mcg PO DAILY 12/06/16 [Vitamin B-12] Sertraline HCl [Zoloft -] 100 mg PO DAILY 12/06/16 REVIEW OF SYSTEMS CONSTITUTIONAL: Absent: fever, chills, diaphoresis, generalized weakness, malaise, loss of appetite, weight change HEENT: Absent: rhinorrhea, nasal congestion, throat pain, throat swelling, difficulty swallowing, mouth swelling, ear pain, eye pain, visual changes CARDIOVASCULAR: Absent: chest pain, syncope, palpitations, irregular heart rate, lightheadedness , peripheral edema RESPIRATORY: Absent: cough, shortness of breath, dyspnea with exertion, orthopnea, wheezing, stridor, hemoptysis GASTROINTESTINAL: Absent: abdominal pain, abdominal distension, nausea, vomiting, diarrhea, constipation, melena, hematochezia GENITOURINARY: Absent: dysuria, frequency, urgency, hesitancy, hematuria, flank pain, genital pain MUSCULOSKELETAL: Absent: myalgia, arthralgia, joint swelling, back pain, neck pain SKIN: Absent: rash, itching, pallor HEMATOLOGIC/IMMUNOLOGIC: Absent: easy bleeding, easy bruising, lymphadenopathy, frequent infections ENDOCRINE: Absent: unexplained weight gain, unexplained weight loss, heat intolerance, cold intolerance NEUROLOGIC: Absent: headache, focal weakness or paresthesias, dizziness, unsteady gait, seizure, mental status changes, bladder or bowel incontinence PSYCHIATRIC: Absent: anxiety, depression, suicidal or homicidal ideation, hallucinations. PHYSICAL EXAMINATION Vital Signs - 24 hr 12/07/16 12/07/16 12/07/16 01:14 04:16 05:30 Temperature 97.8 F Pulse Rate 68 Respiratory 18 16 Rate Blood Pressure 136/62 O2 Sat by Pulse 100 99 Oximetry (%) 12/07/16 09:00 Temperature 98.2 F Pulse Rate 76 Respiratory 18 Rate Blood Pressure 135/72 O2 Sat by Pulse 99 Oximetry (%) GENERAL: Awake, alert, and fully oriented, in no acute distress. HEAD: Normal with no signs of trauma. EYES: Pupils equal, round and reactive to light, extraocular movements intact, sclera anicteric EARS, NOSE, THROAT: Ears normal, nares patent, Moist mucous membranes. NECK: Normal range of motion, supple without lymphadenopathy, JVD, or masses. LUNGS: Breath sounds equal, clear to auscultation bilaterally. No wheezes, and no crackles. No accessory muscle use. HEART: s1s2 normal ABDOMEN: Soft, mild tender in epigastric area ,distended, normoactive bowel sounds, no guarding, no rebound, no masses. resonant to percuss. MUSCULOSKELETAL: Normal range of motion at all joints. No bony deformities or tenderness. No CVA tenderness. UPPER EXTREMITIES: 2+ pulses, warm, well-perfused. No cyanosis. No clubbing. Cap refill <2 seconds. No peripheral edema. LOWER EXTREMITIES: 2+ pulses, warm, well-perfused. No calf tenderness. No peripheral edema. NEUROLOGICAL: Cranial nerves II-XII intact. Normal speech PSYCHIATRIC: Cooperative. Good eye contact. Appropriate mood and affect. SKIN: Warm, dry, normal turgor, no rashes or lesions noted. Laboratory Results - last 24 hr 12/07/16 12/07/16 12/07/16 06:19 07:45 07:45 WBC 6.8 RBC 4.35 Hgb 12.8 Hct 38.3 MCV 88.1 MCHC 33.5 RDW 14.8 Plt Count 216 MPV 7.0 L Neutrophils % 77.7 Lymphocytes % 10.8 D Monocytes % 10.2 D Eosinophils % 0.7 D Basophils % 0.6 INR PTT (Actin FS) Sodium 140 Potassium 3.9 Chloride 106 Carbon Dioxide 26 Anion Gap 8 BUN 11 Creatinine 0.7 Creat Clearance w eGFR > 60 POC Glucometer 109 Random Glucose 118 H Calcium 8.6 Phosphorus 2.9 Magnesium 2.3 Total Bilirubin 2.6 H D Direct Bilirubin AST 301 H D ALT 173 H Alkaline Phosphatase 189 H Total Protein 6.3 L Albumin 3.3 L Triglycerides 198 H D Cholesterol 209 H Total LDL Cholesterol 154 H HDL Cholesterol 36 L Lipase 12/07/16 12/07/16 12/07/16 07:45 07:45 07:45 WBC RBC Hgb Hct MCV MCHC RDW Plt Count MPV Neutrophils % Lymphocytes % Monocytes % Eosinophils % Basophils % INR 1.13 PTT (Actin FS) 32.8 Sodium Potassium Chloride Carbon Dioxide Anion Gap BUN Creatinine Creat Clearance w eGFR POC Glucometer Random Glucose Calcium Phosphorus Magnesium Total Bilirubin 2.6 H Direct Bilirubin 2.0 H AST 298 H ALT 178 H Alkaline Phosphatase 181 H Total Protein 6.5 Albumin 3.3 L Triglycerides Cholesterol Total LDL Cholesterol HDL Cholesterol Lipase 318 12/07/16 11:02 WBC RBC Hgb Hct MCV MCHC RDW Plt Count MPV Neutrophils % Lymphocytes % Monocytes % Eosinophils % Basophils % INR PTT (Actin FS) Sodium Potassium Chloride Carbon Dioxide Anion Gap BUN Creatinine Creat Clearance w eGFR POC Glucometer 110 Random Glucose Calcium Phosphorus Magnesium Total Bilirubin Direct Bilirubin AST ALT Alkaline Phosphatase Total Protein Albumin Triglycerides Cholesterol Total LDL Cholesterol HDL Cholesterol Lipase ASSESSMENT/PLAN: 71 yo female with pmhx of cholelithiasis, HTN, HLD, DM, kidney stone and hiatal hernia presents with acute onset, sharp, constant 10/10 abdominal that radiates to the back since noon yesterday that occurred when she was bending over. gallstone pancreatitis and cholecystitis -elevated LFT, lipase, pmhx of gallstones -NPO -IV NS 100ml.hr -pain medication-IV morphine 2mg q6h prn -zofran for nausea -order mrcp -GI consult -Surg consult for possible cholecystectomy DM -hold metformin and start insulin sliding scale -monitor blood glucose HTN -hold lisinopril patient NPO HLD -hold statin Fluid-NS 100ml/hr electrolytes-repeat in morning nutrition-NPO DVT -SCDs b/l GI Pro: IV protonix 40 mg IV daily dispo admitting med-surg Visit type - Emergency Visit Emergency Visit: Yes ED Registration Date: 12/07/16 Care time: The patient presented to the Emergency Department on the above date and was hospitalized for further evaluation of their emergent condition. - New Patient This patient is new to me today: Yes Date on this admission: 12/07/16 - Critical Care Critical Care patient: No
[2016-12-07] MEDS ORDERED: LORAZEPAM CARPU-JECT 2 MG/ML DISP.SYRIN IVPUSH ONE (18:45)
[2016-12-08] MEDS: SODIUM CHLORIDE 1,000 ML IV SCH ×3 (00:30→13:31)
[2016-12-08] MEDS: INSULIN SLIDING SCALE (NOVOLOG) 1 VIAL SQ SCH ×4 (06:38→22:00)
[2016-12-08 08:00] LABS: BASOPHIL 0.6 % (0-2.0); EOSINOPHIL 1.7 % (0-4.5); MCHC 33.4 g/dl (32.0-36.0); MEAN CELL VOLUME 89.8 fl (80-96); MEAN PLT VOLUME 7.3 fl (7.5-11.1); NEUTROPHILS 74.9 % (42.8-82.8); PLATELET COUNT 208 K/MM3 (134-434); RDW 15.1 % (11.6-15.6); WHITE BLOOD COUNT 5.2 K/mm3 (4.0-10.0)
[2016-12-08 08:28] LABS: ALBUMIN 3.1 g/dl (3.4-5.0); ALK PHOS 203 U/L (45-117); ANION GAP 13 (8-16); BILIRUBIN,TOTAL 1.8 mg/dL (0.2-1.0); CALCIUM 8.3 mg/dL (8.5-10.1); CO2 24 mmol/L (21-32); CREATININE 0.7 mg/dL (0.55-1.02); GLUCOSE,RANDOM 80 mg/dL (74-106); MAGNESIUM 2.3 mg/dL (1.8-2.4); PHOSPHOROUS 3.3 mg/dL (2.5-4.9); SGOT/AST 141 U/L (15-37); SGPT/ALT 154 U/L (12-78); TOT PROT 6.3 g/dl (6.4-8.2)
[2016-12-08] MEDS: PANTOPRAZOLE SODIUM 100 ML IVPB SCH (09:35)
[2016-12-08] MEDS ORDERED: INSULIN (NOVOLOG) ASPART 100 UNITS/ML 10ML VIAL ONE (10:11)
[2016-12-08 10:27] LABS: URINE APPEARANCE CLEAR; URINE BILIRUBIN NEGATIVE (NEGATIVE); URINE BLOOD NEGATIVE (NEGATIVE); URINE COLOR LTYELLOW; URINE GLUCOSE (UA) NEGATIVE (NEGATIVE); URINE KETONE 1+ (NEGATIVE); URINE LEUK ESTERASE NEGATIVE (NEGATIVE); URINE NITRITE NEGATIVE (NEGATIVE); URINE PROTEIN NEGATIVE (NEGATIVE); URINE UROBILINOGEN NEGATIVE E.U./dl (0.2-1.0)
--- NOTE | 2016-12-08 11:06 | PN ---
<Kassandra Iniguez - Last Filed: 12/08/16 11:20> Physical Exam: SUBJECTIVE: Patient seen and examined, c/o "peeing blood" last night. Denies fever, chills, abdominal pain, dysuria. Urine color pink, non fouls smelling, according to patient. One episode. NPO. OBJECTIVE: Vital Signs Period Temp Pulse Resp BP Sys/Arita Pulse Ox Last 24 Hr 98.0 F-98.3 F 62-72 18-20 126-146/67-76 99 GENERAL: The patient is awake, alert, and fully oriented, in no acute distress. HEAD: Normal with no signs of trauma. EYES: PERRL, extraocular movements intact, sclera anicteric, conjunctiva clear. No ptosis. ENT: Ears normal, nares patent, oropharynx clear without exudates, moist mucous membranes. NECK: Trachea midline, full range of motion, supple. LUNGS: Breath sounds equal, clear to auscultation bilaterally, no wheezes, no crackles, no accessory muscle use. HEART: Regular rate and rhythm, S1, S2 without murmur, rub or gallop. ABDOMEN: obese; mildy tender RUQ, nondistended, normoactive bowel sounds, no guarding, no rebound, no hepatosplenomegaly, no masses. umbilical hernia EXTREMITIES: 2+ pulses, warm, well-perfused, no edema. NEUROLOGICAL: Cranial nerves II through XII grossly intact. Normal speech, gait not observed. PSYCH: Normal mood, normal affect. SKIN: Warm, dry, normal turgor, no rashes or lesions noted CBC, BMP 12/08/16 06:30 12/08/16 06:30 Active Medications Generic Name Dose Route Start Last Admin Trade Name Freq PRN Reason Stop Dose Admin Sodium Chloride 1,000 mls @ 100 mls/hr 12/07/16 00:30 12/08/16 03:00 Normal Saline - IV 100 mls/hr ASDIR KARLA Administration Pantoprazole Sodium 100 mls @ 200 mls/hr 12/07/16 10:00 12/08/16 09:35 Protonix 40mg Ivpb (Pre-Docked) IVPB 200 mls/hr DAILY KARLA Administration Insulin Aspart 1 vial 12/07/16 07:00 12/08/16 10:14 Novolog Vial Sliding Scale - SQ Not Given ACHS KARLA Protocol Morphine Sulfate 2 mg 12/07/16 00:17 Morphine Injection - IVPUSH Q4H PRN PAIN Ondansetron HCl 4 mg 12/07/16 00:17 Zofran Injection IVPB Q4H PRN NAUSEA AND/OR VOMITING Imaging: Abdomen US IMPRESSION: Cholelithiasis is identified. There is mild diffuse nonspecific gallbladder wall thickening which may be on the basis of acute or chronic cholecystitis. No previous ultrasound studies are available at this facility for direct comparison. The common bile duct is dilated with a 1.2 cm diameter. No definite biliary tract dilatation was present at the time of an abdomen CT exam of 04/17/2015. The pancreas is obscured due to overlapping bowel gas. ABDOMINAL CT IMPRESSION: 1. Cholelithiasis and diffuse fatty infiltration of the liver. 2. Bilateral nephrolithiasis with no evidence of hydronephrosis or acute renal pathology. 3. No evidence of pancreatitis or acute pathology within the abdomen or pelvis. MRCP IMPRESSION: Cholelithiasis is identified without MRI evidence of acute cholecystitis. There is no MRCP evidence of choledocholithiasis (sensitivity 90% ). Extrahepatic biliary tract dilatation is noted which was not definitely present at the time of a contrast-enhanced CT study performed on 07/31/2013. Note is also made of mild dilatation of the main pancreatic duct. There is no definite MRI evidence of acute pancreatitis. Mild acute pancreatitis may not be demonstrable on MRI. Diffuse hepatic steatosis is seen. ASSESSMENT/PLAN: 71 year old female with a PMH of diabetes mellitus II, HTN , HLD, hernia and nephrolithiasis who presents with epigastric pain radiating to her back and and shoulder blades. UA negative for hematuria. T bili , liver enzymes trending down. 1. Cholelithiasis without evidence of Acute gallstone cholecystitis or gallstone pancreatitis; -large gallstone 2.7cm; -MRCP + for dilation of main pancreatic duct ; consider ERCP -keep NPO, IVF, pain controlled, protonix 40mg IVPB -appreciate GI and surgery consult 2. Diabetes Mellitus type II -hold home metformin -fingertiscks ACHS -insulin SS 3. HTN -Hold lisinopril for now 4. HLD -Hold statin for now 5. OSCAR pain: -vascular study negative for for DVT 6. Elevated transaminases: -AST/ALT: trending down -diffuse fatty liver on on CT abdomen -diffuse hepatic steatosis on MRCO; pending hepatitis panel 7. 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: without regional intermodal truck driver use Qualified Code(s): E11.65 - Type 2 diabetes mellitus with hyperglycemia; Z79.4 - intermediate teacher (current) use of insulin (3) Elevated liver enzymes Code(s): R74.8 - ABNORMAL LEVELS OF OTHER SERUM ENZYMES (4) HLD (hyperlipidemia) Code(s): E78.5 - HYPERLIPIDEMIA, UNSPECIFIED (5) Hypertension Code(s): I10 - ESSENTIAL (PRIMARY) HYPERTENSION (6) Renal calculi Code(s): N20.0 - CALCULUS OF KIDNEY (7) Acute cholecystitis Code(s): K81.0 - ACUTE CHOLECYSTITIS Visit type - Emergency Visit Emergency Visit: Yes ED Registration Date: 12/07/16 Care time: The patient presented to the Emergency Department on the above date and was hospitalized for further evaluation of their emergent condition. - New Patient This patient is new to me today: No - Critical Care Critical Care patient: No <Zurdo Badillo - Last Filed: 12/08/16 14:40> Physical Exam: ATTENDING PHYSICIAN STATEMENT I saw and evaluated the patient. I reviewed the resident's note and discussed the case with the resident. I agree with the resident's findings and plan as documented. SUBJECTIVE: seen and evaluated at the bedside OBJECTIVE: resting comfortably in bed ASSESSMENT AND PLAN: 71 yo female with pmhx of cholelithiasis, HTN, HLD, DM, kidney stones and hiatal hernia admitted for acute cholestasis Cholestasis -abd pain much improved -LFT's trending down so likely had transient blockage and now passed stone -MRCP shows fatty liver with extrahepatic ductal dilation, pancreatic duct dilation but no stones in biliary tree (2.8cm stone in gall bladder) -follow up GI consult -follow up general surgery consult -start clear liquids as no procedures are scheduled for today
--- NOTE | 2016-12-08 19:46 | PN ---
Progress Note (short form) - Note Progress Note: Surgery- Dr. Ruiz Patient seen and examined this morning. Patient states she is feeling better, denies adominal pain. Denies fever, chills, nausea, vomiting. Last Vital Signs Temp Pulse Resp BP Pulse Ox 98.1 F 69 21 132/74 99 12/08/16 17:00 12/08/16 17:00 12/08/16 17:00 12/08/16 17:00 12/07/16 21:00 CBC, BMP 12/08/16 06:30 12/08/16 06:30 Hepatic Panel Total Bilirubin 1.8 mg/dL (0.2-1.0) H D 12/08/16 06:30 Direct Bilirubin 2.0 mg/dL (0.0-0.2) H 12/07/16 07:45 AST 141 U/L (15-37) H D 12/08/16 06:30 ALT 154 U/L (12-78) H 12/08/16 06:30 Alkaline Phosphatase 203 U/L (45-117) H 12/08/16 06:30 Albumin 3.1 g/dl (3.4-5.0) L 12/08/16 06:30 LFTs trending down Lipase now 94 Exam: Gen: NAD Abd: obese, soft, nondistended, nontender, MRCP: cholelithiasis without MRI evidence of acute cholecystitis, no MRCP evidence choldochlithiasis, extrahepatic biliary tract dilation, mild dilatation of main pancreatic duct A/P improving abdominal pain and LFTs MRCP report reviewed with Dr. Ruiz, extrahepatic biliary trct dilation- consider ERCP, followup GI recommendations
--- NOTE | 2016-12-08 20:58 | PN ---
GI Progress Note Subjective: GASTROENTEROLOGY ABSOLUTELY NO PAIN, LIVER FUNCTION TESTS IMPROVED, OK ON CLEARS MRCP NORMAL GB AND PANCREAS DILATED INTRAHEPATIC DUCTS - Objective Vital Signs: Vital Signs Temperature 98.1 F 12/08/16 17:00 Pulse Rate 69 12/08/16 17:00 Respiratory Rate 21 12/08/16 17:00 Blood Pressure 132/74 12/08/16 17:00 O2 Sat by Pulse Oximetry (%) 99 12/07/16 21:00 Constitutional: No Distress Eyes: Yes: Conjunctiva Clear HENT: Yes: Normocephalic Neck: Yes: Supple Cardiovascular: Yes: Regular Rate and Rhythm Respiratory: Yes: Regular Gastrointestinal Inspection: Yes: WNL ...Auscultate: Yes: Normoactive Bowel Sounds ...Palpate: Yes: Soft Genitourinary: Yes: WNL Extremities: Yes: WNL Labs: CBC, BMP 12/08/16 06:30 12/08/16 06:30 INR, PTT INR 1.13 (0.82-1.09) 12/07/16 07:45 Laboratory Tests 12/06/16 12/07/16 12/07/16 22:35 07:45 07:45 Total Bilirubin 1.8 H D 2.6 H D Direct Bilirubin AST 377 H D 301 H D ALT 158 H D 173 H Alkaline Phosphatase 175 H 189 H Total Protein 6.3 L Albumin 3.3 L Triglycerides 198 H D Cholesterol 209 H Total LDL Cholesterol 154 H HDL Cholesterol 36 L Lipase 671 H 318 12/07/16 12/08/16 07:45 06:30 Total Bilirubin 2.6 H 1.8 H D Direct Bilirubin 2.0 H AST 298 H 141 H D ALT 178 H 154 H Alkaline Phosphatase 181 H 203 H Total Protein 6.5 Albumin 3.3 L Triglycerides Cholesterol Total LDL Cholesterol HDL Cholesterol Lipase 94 - ....Imaging MRI: Image Reviewed Problem List - Problems (1) Dilated bile duct Assessment/Plan: ETIOLOGY ??, NO IMAGING WITH DEFINITE CHOLECYSTITIS OR PANCREATITIS TREND LFT'S, ADVANCE DIET, POSSIBLE ERCP Code(s): K83.8 - OTHER SPECIFIED DISEASES OF BILIARY TRACT (2) Elevated liver enzymes Assessment/Plan: TRENDING DOWN Code(s): R74.8 - ABNORMAL LEVELS OF OTHER SERUM ENZYMES (3) Diabetes mellitus Code(s): E11.9 - TYPE 2 DIABETES MELLITUS WITHOUT COMPLICATIONS Qualifiers: Diabetes mellitus type: type 2 Diabetes mellitus complication status: with hyperglycemia Diabetes mellitus long-term insulin use: 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
[2016-12-09] MEDS: SODIUM CHLORIDE 1,000 ML IV SCH (01:30)
[2016-12-09] MEDS: INSULIN SLIDING SCALE (NOVOLOG) 1 VIAL SQ SCH ×2 (07:00→11:16)
[2016-12-09 08:03] LABS: BASOPHIL 0.6 % (0-2.0); EOSINOPHIL 2.1 % (0-4.5); MCHC 33.5 g/dl (32.0-36.0); MEAN CELL VOLUME 89.4 fl (80-96); MEAN PLT VOLUME 7.2 fl (7.5-11.1); NEUTROPHILS 72.3 % (42.8-82.8); PLATELET COUNT 203 K/MM3 (134-434); RDW 14.9 % (11.6-15.6); WHITE BLOOD COUNT 5.6 K/mm3 (4.0-10.0)
[2016-12-09 08:13] LABS: ALBUMIN 3.2 g/dl (3.4-5.0); ANION GAP 12 (8-16); CALCIUM 8.4 mg/dL (8.5-10.1); CO2 24 mmol/L (21-32); MAGNESIUM 2.2 mg/dL (1.8-2.4)
[2016-12-09 08:20] LABS: ALK PHOS 199 U/L (45-117); CREATININE 0.6 mg/dL (0.55-1.02); GLUCOSE,RANDOM 97 mg/dL (74-106); SGOT/AST 60 U/L (15-37); SGPT/ALT 107 U/L (12-78); TOT PROT 6.4 g/dl (6.4-8.2)
[2016-12-09] MEDS: PANTOPRAZOLE SODIUM 100 ML IVPB SCH (09:32)
--- NOTE | 2016-12-09 10:11 | PN ---
Progress Note (short form) - Note Progress Note: Attending Surgeon No c/o; tolerating liquids; GI note reviewed VSS AF abdominal exam unremarkable LFT's slightly lower hep w/u pending IMP: improving PLAN: Concur w/ a/p as outlined by GI
[2016-12-09 11:34] VITALS: BP 130/79; PULSE 78; TEMP 98.1
--- NOTE | 2016-12-09 17:20 | DS ---
Physical Exam: SUBJECTIVE: Patient seen and examined tolerating diet. No abdominal pain. BM +. Denies fever, chills, n, v, abdominal pain. OBJECTIVE: Vital Signs Period Temp Pulse Resp BP Sys/Arita Pulse Ox Last 24 Hr 97.9 F-98.1 F 61-92 18-19 109-130/74-79 96 PHYSICAL EXAM GENERAL: The patient is awake, alert, and fully oriented, in no acute distress. HEAD: Normal with no signs of trauma. EYES: PERRL, extraocular movements intact, sclera anicteric, conjunctiva clear. ENT: Ears normal, nares patent, oropharynx clear without exudates, moist mucous membranes. NECK: Trachea midline, full range of motion, supple. LUNGS: Breath sounds equal, clear to auscultation bilaterally, no wheezes, no crackles, no accessory muscle use. HEART: Regular rate and rhythm, S1, S2 systolic murmur, rub or gallop. ABDOMEN: Soft, nontender, nondistended, normoactive bowel sounds, no guarding, no rebound, no hepatosplenomegaly, no masses. EXTREMITIES: 2+ pulses, warm, well-perfused, no edema. NEUROLOGICAL: Cranial nerves II through XII grossly intact. Normal speech, gait not observed. PSYCH: Normal mood, normal affect. SKIN: Warm, dry, normal turgor, no rashes or lesions noted. LABS CBC, BMP 12/09/16 07:00 12/09/16 07:00 Abdomen US IMPRESSION: Cholelithiasis is identified. There is mild diffuse nonspecific gallbladder wall thickening which may be on the basis of acute or chronic cholecystitis. No previous ultrasound studies are available at this facility for direct comparison. The common bile duct is dilated with a 1.2 cm diameter. No definite biliary tract dilatation was present at the time of an abdomen CT exam of 04/17/2015. The pancreas is obscured due to overlapping bowel gas. ABDOMINAL CT IMPRESSION: 1. Cholelithiasis and diffuse fatty infiltration of the liver. 2. Bilateral nephrolithiasis with no evidence of hydronephrosis or acute renal pathology. 3. No evidence of pancreatitis or acute pathology within the abdomen or pelvis. MRCP IMPRESSION: Cholelithiasis is identified without MRI evidence of acute cholecystitis. There is no MRCP evidence of choledocholithiasis (sensitivity 90% ). Extrahepatic biliary tract dilatation is noted which was not definitely present at the time of a contrast-enhanced CT study performed on 07/31/2013. Note is also made of mild dilatation of the main pancreatic duct. There is no definite MRI evidence of acute pancreatitis. Mild acute pancreatitis may not be demonstrable on MRI. Diffuse hepatic steatosis is seen. HOSPITAL COURSE: Date of Admission:12/07/16 Date of Discharge: 12/09/16 This is 71 year old female with a past medical history of diabetes mellitus type II, hypertension, hyperlipidemia, hernia, nephrolithiasis who presented to the emergency room with epigastric pain that radiated to the back. Initial imaging and lab work and clinical judgment were moving toward acute choleycystitis vs acute pancreatitis. Patient was made NPO, pain controlled. Patient was seen by surgery and gastroenterology, MRCP was suggested. All imaging listed above, Common bile duct and pancreatic duct was enlarged.There was no definite source/ visible stone. All labs including bilirubin, liver enzymes decreased. Patient condition improved. ERCP was suggested as outpatient and follow up with Dr. Wilburn with in one week. There was a significant cholelithiasis, 2.7 cm, most likely needed cholecystectomy as outpatient. Patient blood sugar levels and blood pressure were maintained throughout visit. Minutes to complete discharge: 40 Discharge Summary Reason For Visit: DM ELEVATED LIVER ENZYMES PANCREATITIS Current Active Problems HLD (hyperlipidemia) (Chronic) Hypertension (Chronic) Renal calculi (Chronic) Condition: Improved - Instructions Diet, Activity, Other Instructions: Mrs. Carrasquillo, Your lab work regarding your liver, gallbladder and pancreas has improved. Imaging did show some dilatation of your pancreatic and common bile duct. You may have had a stone that passed. We would like you to follow up with gastroenterology, Dr. Wilburn, to further evaluate. You may advance your diet to softer foods, and continue to advance as tolerated. If you experience any worsening of symptoms including fever, chills, nausea, vomiting, please return to the emergency room. Referrals: Hero Olivia MD [Primary Care Provider] - Moose Wilburn MD [Staff Physician] - Disposition: HOME - Home Medications Comprehensive Discharge Medication List: Ambulatory Orders Metformin HCl [Glucophage -] 500 mg PO BID 05/02/14 Simvastatin 20 mg PO HS 05/02/14 Lisinopril [Prinivil] 20 mg PO DAILY 04/17/15 Aspirin [Herminio Chewable Aspirin] 81 mg PO DAILY 12/06/16 Cyanocobalamin (Vitamin B-12) [Vitamin B-12] 1,000 mcg PO DAILY 12/06/16 Sertraline HCl [Zoloft -] 100 mg PO DAILY 12/06/16 Problem List - Problems (1) Acute gallstone pancreatitis Code(s): K85.1 - BILIARY ACUTE PANCREATITIS * DO NOT USE * (2) Diabetes mellitus Code(s): E11.9 - TYPE 2 DIABETES MELLITUS WITHOUT COMPLICATIONS Qualifiers: Diabetes mellitus type: type 2 Diabetes mellitus complication status: with hyperglycemia 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: without correction use Qualified Code(s): E11.65 - Type 2 diabetes mellitus with hyperglycemia; Z79.4 - FPC (current) use of insulin (3) Elevated liver enzymes Code(s): R74.8 - ABNORMAL LEVELS OF OTHER SERUM ENZYMES (4) HLD (hyperlipidemia) Code(s): E78.5 - HYPERLIPIDEMIA, UNSPECIFIED (5) Hypertension Code(s): I10 - ESSENTIAL (PRIMARY) HYPERTENSION (6) Renal calculi Code(s): N20.0 - CALCULUS OF KIDNEY (7) Acute cholecystitis Code(s): K81.0 - ACUTE CHOLECYSTITIS This patient is new to me today: No Emergency Visit: Yes ED Registration Date: 12/07/16 Care time: The patient presented to the Emergency Department on the above date and was hospitalized for further evaluation of their emergent condition. Critical Care patient: No Total Critical Care Time (in minutes): 40 Critical Care Statement: The care of this patient involved high complexity decision making to prevent further life threatening deterioration of the patient 's condition and/or to evalute & treat vital organ system(s) failure or risk of failure. - Discharge Referral Referred to [facility] No
[2016-12-11 00:06] LABS: HEP B SURFACE AB Non Reactive (.)
== END 2016-12-09 11:30 | disposition home or self-care (01) | DRG 444 ==
LOC: JER 21:07 → JERBED 12-07 00:11 → J6S 12-07 04:11
PROVIDERS: ADMIT Internal Medicine; ATTEND Internal Medicine
DX: K80.00 Calculus of gallbladder with acute cholecystitis without obstruction (principal); K85.10 Biliary acute pancreatitis without necrosis or infection; E11.65 Type 2 diabetes mellitus with hyperglycemia; E78.5 Hyperlipidemia, unspecified; K44.9 Diaphragmatic hernia without obstruction or gangrene; N20.0 Calculus of kidney; R74.8 Abnormal levels of other serum enzymes; I10 Essential (primary) hypertension
CPT/HCPCS: 36415; 71010-TC; 74177-TC; 74181-TC; 76705-TC; 80053; 80061; 80076; 81003; 82150; 82550; 83690; 83721; 83735; 84100; 84484; 85025; 85610; 85730; 86704; 86706; 86708; 86850; 86900; 86901; 87086; 87340; 93005; 93010; 93971-TC; 99284-25

== ENCOUNTER 2016-12-29 20:41 | Inpatient (IN) | payer OTHER ==
--- NOTE | 2016-12-29 20:44 | PDOC ---
Rapid Medical Evaluation Time Seen by Provider: 12/29/16 20:44 Medical Evaluation: Allergies Allergy/AdvReac Type Severity Reaction Status Date / Time No Known Drug Allergies Allergy Verified 07/31/15 17:44 12/29/16 20:44 71 year old female with a history of cholelithiasis, nephrolithiasis, HTN, dyslipidemia, and NIDDM presenting with epigastric pain that started at noon today. V/s notable for BP 160/82. -EKG -Cardiac/abdominal labs -To Main ED for further evaluation
[2016-12-29 21:35] LABS: BASOPHIL 0.8 % (0-2.0); EOSINOPHIL 1.2 % (0-4.5); MCH 30.1 pg (25.7-33.7); MCHC 34.3 g/dl (32.0-36.0); MEAN CELL VOLUME 87.7 fl (80-96); MEAN PLT VOLUME 7.2 fl (7.5-11.1); NEUTROPHILS 71.4 % (42.8-82.8); PLATELET COUNT 298 K/MM3 (134-434); RDW 14.5 % (11.6-15.6); WHITE BLOOD COUNT 6.8 K/mm3 (4.0-10.0)
[2016-12-29 21:36] LABS: URINE APPEARANCE CLEAR; URINE BILIRUBIN NEGATIVE (NEGATIVE); URINE BLOOD NEGATIVE (NEGATIVE); URINE COLOR YELLOW; URINE GLUCOSE (UA) NEGATIVE (NEGATIVE); URINE KETONE NEGATIVE (NEGATIVE); URINE NITRITE NEGATIVE (NEGATIVE); URINE PROTEIN NEGATIVE (NEGATIVE); URINE UROBILINOGEN 2.0 E.U/dl E.U./dl (0.2-1.0)
[2016-12-29 21:43] LABS: URINE LEUK ESTERASE 2+ (NEGATIVE)
[2016-12-29 22:09] LABS: ALBUMIN 3.9 g/dl (3.4-5.0); ALK PHOS 266 U/L (45-117); ANION GAP 9 (8-16); CALCIUM 8.9 mg/dL (8.5-10.1); CO2 29 mmol/L (21-32); CREATININE 0.7 mg/dL (0.55-1.02); GLUCOSE,RANDOM 125 mg/dL (74-106); SGOT/AST 246 U/L (15-37); SGPT/ALT 139 U/L (12-78); TOT PROT 7.9 g/dl (6.4-8.2)
[2016-12-29 22:10] LABS: TROPONIN I < 0.02 ng/ml (0.00-0.05)
[2016-12-29] MEDS ORDERED: SODIUM CHLORIDE 500 ML IV STA (22:16)
[2016-12-29] MEDS ORDERED: KETOROLAC TROMETHAMINE 30 MG/1 ML VIAL IM ONE (22:16)
[2016-12-29] MEDS ORDERED: KETOROLAC TROMETHAMINE 30 MG/1 ML VIAL ONE (22:21)
[2016-12-29 22:23] LABS: URINE MUCUS RARE; URINE RBC 1 /hpf (0-3); URINE WBC 44 /hpf (3-5)
[2016-12-29] MEDS ORDERED: PANTOPRAZOLE SODIUM 40 MG in SODIUM CHLORIDE 100 ML IVPB ONE (23:02)
[2016-12-29] MEDS ORDERED: FAMOTIDINE 20 MG/50 ML IVPB 50 ML IVPB ONE ×2 (23:02→23:08)
--- NOTE | 2016-12-29 23:06 | PDOC ---
History of Present Illness - General Chief Complaint: Pain, Acute Stated Complaint: PAIN Time Seen by Provider: 12/29/16 20:44 History Source: Patient Exam Limitations: No Limitations - History of Present Illness Travel History: No Initial Comments: 12/29/16 23:03 71yo Female patient w/ PmHx: DM, HTN, HLD, Renal Colic, abd hernia and "gall bladder attack" presents to ED c/o epigastric abdominal pain which began at 12 noon today. Patient describes symptoms as soreness, with decreased appetite. Patient states having similar symptoms back in Nov, but did not follow up with specialist. She also reports not having a PCP. Timing/Duration: reports: getting worse Quality: reports: moderate Abdominal Pain Onset Location: reports: epigastric Pain Radiation: reports: no radiation Activities at Onset: reports: no specific activity Treatment Prior to Arrive: worse with: analgesics, antacids, cold pack, heat, laxative, enema, other Aggravating Factors: worse with: None, Defecation, Eating, Emotional upset, Exertion, [place], Movement, Voiding, Change in position Alleviating Factors: worse with: None, Belching, Shallow Breathing, Defecation, Eating, Holding Breath, Passing Gas, Change in Position, Rest, Voiding, Vomiting Past History - Travel Traveled outside of the country in the last 30 days: No Close contact w/someone who was outside of country & ill: No - Past Medical History Allergies/Adverse Reactions: Allergies Allergy/AdvReac Type Severity Reaction Status Date / Time No Known Drug Allergies Allergy Verified 07/31/15 17:44 Home Medications: Ambulatory Orders Metformin HCl [Glucophage -] 500 mg PO BID 05/02/14 Simvastatin 20 mg PO HS 05/02/14 Lisinopril [Prinivil] 20 mg PO DAILY 04/17/15 Aspirin [Herminio Chewable Aspirin] 81 mg PO DAILY 12/06/16 Cyanocobalamin (Vitamin B-12) [Vitamin B-12] 1,000 mcg PO DAILY 12/06/16 Sertraline HCl [Zoloft -] 100 mg PO DAILY 12/06/16 Diabetes: Yes Disorders: Yes (kidney stones) HTN: Yes Hypercholesterolemia: Yes Suicide Attempt (Hx): No - Immunization History Immunization Up to Date: Yes - Psycho/Social/Smoking Cessation Hx Anxiety: No Suicidal Ideation: No Smoking History: Never smoked Have you smoked in the past 12 months: No Hx Alcohol Use: No Drug/Substance Use Hx: No Substance Use Type: None Hx Substance Use Treatment: No Abd/GI Specific PMHX - Complaint Specific PMHX Colitis: No Diverticulitis: No Gall Bladder Disease: Yes GERD: No Hepatitis: No Irritable Bowel Synd (IBS): No Pancreatitis: No GI Ulcer Disease: No Review of Systems - Review of Systems Able to Perform ROS?: Yes Is the patient limited Kazakh proficient: No Constitutional: No: Chills, Fever Respiratory: No: Cough, Orthopnea, Shortness of Breath, Stridor, Wheezing Cardiac (ROS): No: Chest Pain, Lightheadedness, Palpitations, Syncope, Chest Tightness ABD/GI: Yes: Other (Abd Pain (Epigastric)). No: Diarrhea, Nausea, Poor Appetite , Poor Fluid Intake, Rectal Bleeding, Vomiting : No: Dysuria, Flank Pain, Hematuria Musculoskeletal: No: Back Pain All Other Systems: Reviewed and Negative *Physical Exam - Vital Signs Last Vital Signs Temp Pulse Resp BP Pulse Ox 98.1 F 72 20 160/82 98 12/29/16 20:48 12/29/16 20:48 12/29/16 20:48 12/29/16 20:48 12/29/16 20:48 - Physical Exam General Appearance: Yes: Nourished, Appropriately Dressed. No: Apparent Distress, Mild Distress, Moderate Distress, Severe Distress Neck: positive: Trachea midline, Supple. negative: Rigid, Decreased range of motion, Stridor, Lymphadenopathy (R), Lymphadenopathy (L) Respiratory/Chest: positive: Lungs Clear, Normal Breath Sounds. negative: Respiratory Distress, Accessory Muscle Use, Labored Respiration, Rapid RR Cardiovascular: positive: Regular Rhythm, Regular Rate Gastrointestinal/Abdominal: positive: Soft, Increased Bowel Sounds, Distended, Tenderness (Epigastric region.), Hernia. negative: Guarding, Rebound Musculoskeletal: positive: Normal Inspection. negative: CVA Tenderness Extremity: positive: Normal Capillary Refill, Normal Inspection, Normal Range of Motion. negative: Pedal Edema, Swelling Integumentary: positive: Normal Color, Dry, Warm. negative: Rash, Swelling Neurologic: positive: multi slide machine tender II-XII NML intact, Fully Oriented, Alert, Normal Mood/ Affect, Normal Response, Motor Strength 5/5 Heart Score/ECG Review - ECG Impressions Normal ECG: Yes Non-specific ST Elevation: No Ischemic Changes: No Bradycardia: No Torsades cora Pointes: No WPW: No ED Treatment Course - LABORATORY CBC & Chemistry Diagram: 12/29/16 21:25 12/29/16 21:25 - ADDITIONAL ORDERS Additional order review: Laboratory Results 12/29/16 12/29/16 12/29/16 21:25 21:25 21:25 Sodium 143 Potassium 3.3 L Chloride 105 Carbon Dioxide 29 D Anion Gap 9 BUN 10 D Creatinine 0.7 Creat Clearance w eGFR > 60 Random Glucose 125 H D Calcium 8.9 Total Bilirubin 1.0 AST 246 H D ALT 139 H D Alkaline Phosphatase 266 H D Creatine Kinase 63 Troponin I < 0.02 Total Protein 7.9 D Albumin 3.9 D Lipase 3734 H Urine Color Yellow Urine Appearance Clear Urine pH 6.0 Ur Specific [place] 1.013 Urine Protein Negative Urine Glucose (UA) Negative Urine Ketones Negative Urine Blood Negative Urine Nitrite Negative Urine Bilirubin Negative Urine Urobilinogen 2.0 e.u/dl H Ur Leukocyte Esterase 2+ H Urine RBC 1 Urine WBC 44 Ur Epithelial Cells Rare Urine Mucus Rare 12/29/16 21:25 RBC 4.60 MCV 87.7 MCHC 34.3 RDW 14.5 MPV 7.2 L Neutrophils % 71.4 Lymphocytes % 19.5 Monocytes % 7.1 Eosinophils % 1.2 Basophils % 0.8 - RADIOLOGY Radiology Studies Ordered: Category Date Time Status GALLBLADDER US [US] Stat Ultrasound 12/29/16 22:16 Ordered - Medications Given in the ED: ED Medications Discontinued Medications Generic Name Dose Route Start Last Admin Trade Name Freq PRN Reason Stop Dose Admin Ketorolac Tromethamine 30 mg 12/29/16 22:16 12/29/16 22:30 Toradol Injection - IM 12/29/16 22:17 30 mg ONCE ONE Administration *DC/Admit/Observation/Transfer Diagnosis at time of Disposition: Biliary calculus with cholecystitis Qualifiers: Cholelithiasis location: gallbladder and bile duct Cholecystitis acuity: acute Biliary obstruction: without biliary obstruction Qualified Code(s): K80.62 - Calculus of gallbladder and bile duct with acute cholecystitis without obstruction - Discharge Dispostion Condition at time of disposition: Fair Admit: Yes
[2016-12-29] MEDS ORDERED: PANTOPRAZOLE SODIUM 100 ML IVPB ONE (23:07)
--- NOTE | 2016-12-29 23:08 | PDOC ---
*Physical Exam - Vital Signs Last Vital Signs Temp Pulse Resp BP Pulse Ox 98.1 F 72 20 160/82 98 12/29/16 20:48 12/29/16 20:48 12/29/16 20:48 12/29/16 20:48 12/29/16 20:48 ED Treatment Course - LABORATORY CBC & Chemistry Diagram: 01/03/17 06:20 01/03/17 06:20 - ADDITIONAL ORDERS Additional order review: Laboratory Results 12/29/16 12/29/16 12/29/16 21:25 21:25 21:25 Sodium 143 Potassium 3.3 L Chloride 105 Carbon Dioxide 29 D Anion Gap 9 BUN 10 D Creatinine 0.7 Creat Clearance w eGFR > 60 Random Glucose 125 H D Calcium 8.9 Total Bilirubin 1.0 AST 246 H D ALT 139 H D Alkaline Phosphatase 266 H D Creatine Kinase 63 Troponin I < 0.02 Total Protein 7.9 D Albumin 3.9 D Lipase 3734 H Urine Color Yellow Urine Appearance Clear Urine pH 6.0 Ur Specific [place] 1.013 Urine Protein Negative Urine Glucose (UA) Negative Urine Ketones Negative Urine Blood Negative Urine Nitrite Negative Urine Bilirubin Negative Urine Urobilinogen 2.0 e.u/dl H Ur Leukocyte Esterase 2+ H Urine RBC 1 Urine WBC 44 Ur Epithelial Cells Rare Urine Mucus Rare 12/29/16 21:25 RBC 4.60 MCV 87.7 MCHC 34.3 RDW 14.5 MPV 7.2 L Neutrophils % 71.4 Lymphocytes % 19.5 Monocytes % 7.1 Eosinophils % 1.2 Basophils % 0.8 - Medications Given in the ED: ED Medications Discontinued Medications Generic Name Dose Route Start Last Admin Trade Name Holly PRN Reason Stop Dose Admin Ketorolac Tromethamine 30 mg 12/29/16 22:16 12/29/16 22:30 Toradol Injection - IM 12/29/16 22:17 30 mg ONCE ONE Administration Medical Decision Making - Medical Decision Making 12/29/16 23:08 agree with care from WALTER Singh *DC/Admit/Observation/Transfer Diagnosis at time of Disposition: Cholecystitis with cholelithiasis - Discharge Dispostion Condition at time of disposition: Fair
--- NOTE | 2016-12-30 00:10 | PN ---
<Danika Nielsen - Last Filed: 12/30/16 00:09> Teaching Attending Note Name of Resident: Yeni Rahman <Susan Joiner - Last Filed: 12/30/16 01:51> Teaching Attending Note ATTENDING PHYSICIAN STATEMENT I saw and evaluated the patient. I reviewed the resident's note and discussed the case with the resident. I agree with the resident's findings and plan as documented. SUBJECTIVE: 71 yo F with a PMHx of renal colic who presents to the ED with epigastric abdominal pain since today afternoon. The patient reports her pain radiates to her back and rates it 10/10 in severity. The patient notes decreased appetite however denies any n/v/d/c.She denies chest pain, headache or dizziness. She denies fever, chills, dysuria, frequency, urgency or hematuria. PMHx: Hypertension, Hyperlipidemia, Diabetes Mellitus, Renal colic s/p lithotripsy , Abdominal hernia, Cholelithiasis PSHx:Lithotripsy Social Hx: Occasional EtOH use when she was a teenager OBJECTIVE: Last Vital Signs Temp Pulse Resp BP Pulse Ox 98.1 F 72 20 160/82 98 12/29/16 20:48 12/29/16 20:48 12/29/16 20:48 12/29/16 20:48 12/29/16 20:48 GENERAL: Awake, alert, and fully oriented, in no acute distress HEENT: Atraumatic. PERRLA, EOMI. Moist mucosa. No JVD LUNGS: No distress, speaks full sentences, clear to auscultation bilaterally HEART: Regular rate and rhythm, normal S1 and S2, no murmurs, rubs or gallops, peripheral pulses normal and equal bilaterally. ABDOMEN: + Epigastric tenderness on palpation. Soft, nontender, normoactive bowel sounds. No guarding, no rebound. No masses. Negative [place] sign. Negative [place] sign. EXTREMITIES: Normal inspection, Normal range of motion, no edema. No clubbing or cyanosis. NEUROLOGICAL: Cranial nerves II through XII grossly intact. Normal speech, normal gait, no focal sensorimotor deficits SKIN: Warm, Dry, normal turgor, no rashes or lesions noted. CBCD WBC 6.8 K/mm3 (4.0-10.0) 12/29/16 21:25 RBC 4.60 M/mm3 (3.60-5.2) 12/29/16 21:25 Hgb 13.8 GM/dL (10.7-15.3) 12/29/16 21:25 Hct 40.3 % (32.4-45.2) 12/29/16 21:25 MCV 87.7 fl (80-96) 12/29/16 21:25 MCHC 34.3 g/dl (32.0-36.0) 12/29/16 21:25 RDW 14.5 % (11.6-15.6) 12/29/16 21:25 Plt Count 298 K/MM3 (134-434) D 12/29/16 21:25 MPV 7.2 fl (7.5-11.1) L 12/29/16 21:25 CMP Sodium 143 mmol/L (136-145) 12/29/16 21:25 Potassium 3.3 mmol/L (3.5-5.1) L 12/29/16 21:25 Chloride 105 mmol/L (98-107) 12/29/16 21:25 Carbon Dioxide 29 mmol/L (21-32) D 12/29/16 21:25 Anion Gap 9 (8-16) 12/29/16 21:25 BUN 10 mg/dL (7-18) D 12/29/16 21:25 Creatinine 0.7 mg/dL (0.55-1.02) 12/29/16 21:25 Creat Clearance w eGFR > 60 (>60) 12/29/16 21:25 Calcium 8.9 mg/dL (8.5-10.1) 12/29/16 21:25 Total Bilirubin 1.0 mg/dL (0.2-1.0) 12/29/16 21:25 AST 246 U/L (15-37) H D 12/29/16 21:25 ALT 139 U/L (12-78) H D 12/29/16 21:25 Alkaline Phosphatase 266 U/L (45-117) H D 12/29/16 21:25 Total Protein 7.9 g/dl (6.4-8.2) D 12/29/16 21:25 Albumin 3.9 g/dl (3.4-5.0) D 12/29/16 21:25 Imaging: Gallbladder US Impression: No definite interval change is identified in comparison to a previous ultrasound exam performed on 12/06/2016. Cholelithiasis is noted. There is mild diffuse gallbladder wall thickening which may be on the basis of chronic cholecystitis (and less likely representing interval recurrent thickening). Mild extrahepatic biliary tract dilatation is seen. Minimal to mild nonspecific dilatation of the main pancreatic duct identified on recently performed MRI/MRCP is difficult to appreciate on sonography. There is diffuse hepatic steatosis. ASSESSMENT AND PLAN: 1.)Gallstone pancreatitis, acute cholecysitis/cholethaisis r/o Choledocholelithiasis -NPO -IVF -Protonix IV -Zofran PRN -Dr. Wilburn GI consult -Continue home meds -Diabetes- Insulin sliding scale -Dilaudid 0.5 mg PRN Documentation prepared by Susan Joiner, acting as hospital medical biller for Danika Nielsen MD
--- NOTE | 2016-12-30 00:44 | HP ---
CHIEF COMPLAINT: Severe abdominal pain PCP: No PCP yet. ( Has scheduled an appointment with Dr. Perez at [address] [place] [address] in mid January) HISTORY OF PRESENT ILLNESS: Patient is a 71 year old female presented with severe abdominal pain. As per the patient, she started having epigastric pain since noon yesterday, progressively getting worse, radiating towards her back, pressure type, intermittent, 7/10 in intensity, not associated with nausea or vomiting. No relieving or aggravating factors. Patient had similar episode 3 weeks ago, was admitted on 12/07/2016, CT scan of abdomen/pelvis was done showing Cholelithiasis. MRCP was done but there was no finding of choledocholithiasis or cholecystitis. As per the old chart, she was supposed to f/up with Dr. Wilburn after a week of discharge (12/09/16) for an ERCP but patient didn't follow up because of transportation and financial issues (Has medicare). Since she went home, she didn't really have the pain, was able to tolerate food and was able to do her daily activities on her own. Denies fever, chills, rigors, sweating, headache, tingling numbness, chest pain , sob, cough, palpitation. Bowel/Bladder habit normal. Appetite decreased since today. Sleep normal. ER course was notable for: (1) Afebrile, no leukocytosis, Elevated liver enzymes AST>ALT; LIpase- 3734, urine urobilinogen 2+ (2) Gall bladder ultrasound- Cholelithiasis. Extrahepatic biliary duct dilatation. (3) IV NS 500mls, Pantop IV, Famotidine 20mg IV, Ketorolac Recent Travel: None PAST MEDICAL HISTORY: Hypertension, Hyperlipidemia, Diabetes Mellitus, Renal colic s/p lithotripsy , Abdominal hernia, Cholelithiasis PAST SURGICAL HISTORY: Lithotripsy Social History: Smoking:Denies Alcohol: Occasional when she was a teenager Drugs: Denies Family History: Unknown Allergies No Known Drug Allergies Allergy (Verified 07/31/15 17:44) HOME MEDICATIONS: Home Medications Medication Instructions Recorded Metformin HCl [Glucophage -] 500 mg PO BID 05/02/14 Simvastatin 20 mg PO HS 05/02/14 Lisinopril [Prinivil] 20 mg PO DAILY 04/17/15 Aspirin [Herminio Chewable Aspirin] 81 mg PO DAILY 12/06/16 Cyanocobalamin (Vitamin B-12) 1,000 mcg PO DAILY 12/06/16 [Vitamin B-12] Sertraline HCl [Zoloft -] 100 mg PO DAILY 12/06/16 REVIEW OF SYSTEMS CONSTITUTIONAL: Absent: fever, chills, diaphoresis, generalized weakness, malaise, loss of appetite, weight change HEENT: Absent: rhinorrhea, nasal congestion, throat pain, throat swelling, difficulty swallowing, mouth swelling, ear pain, eye pain, visual changes CARDIOVASCULAR: Absent: chest pain, syncope, palpitations, irregular heart rate, lightheadedness , peripheral edema RESPIRATORY: Absent: cough, shortness of breath, dyspnea with exertion, orthopnea, wheezing, stridor, hemoptysis GASTROINTESTINAL: Present: abdominal pain Absent: abdominal distension, nausea, vomiting, diarrhea, constipation, melena , hematochezia GENITOURINARY: Absent: dysuria, frequency, urgency, hesitancy, hematuria, flank pain, genital pain MUSCULOSKELETAL: Absent: myalgia, arthralgia, joint swelling, back pain, neck pain SKIN: Absent: rash, itching, pallor HEMATOLOGIC/IMMUNOLOGIC: Absent: easy bleeding, easy bruising, lymphadenopathy, frequent infections ENDOCRINE: Absent: unexplained weight gain, unexplained weight loss, heat intolerance, cold intolerance NEUROLOGIC: Absent: headache, focal weakness or paresthesias, dizziness, unsteady gait, seizure, mental status changes, bladder or bowel incontinence PSYCHIATRIC: Absent: anxiety, depression, suicidal or homicidal ideation, hallucinations. PHYSICAL EXAMINATION GENERAL: Elderly female, Awake, alert, and fully oriented, in no acute distress. HEAD: Normal with no signs of trauma. EYES: EOM intact, no pallor or icterus. EARS, NOSE, THROAT: Ears normal. Moist mucous membranes. NECK: Supple. LUNGS: Breath sounds equal, clear to auscultation bilaterally. No wheezes, and no crackles. No accessory muscle use. HEART: Regular rate and rhythm, normal S1 and S2 without murmur, rub or gallop. ABDOMEN: Reducible umbilical hernia, Soft, tenderness over the epigastric and right upper qudrant, Britton sign negative, not distended, hyperactive bowel sounds, no guarding, no rebound, no masses. No hepatomegaly or splenomegaly. MUSCULOSKELETAL: Normal range of motion at all joints. No bony deformities or tenderness. No CVA tenderness. UPPER EXTREMITIES: 2+ pulses, warm, well-perfused. No cyanosis. No clubbing. No peripheral edema. LOWER EXTREMITIES: 2+ pulses, warm, well-perfused. No calf tenderness. No peripheral edema. NEUROLOGICAL: Cranial nerves II-XII intact. Normal speech. Normal gait. PSYCHIATRIC: Cooperative. Good eye contact. Appropriate mood and affect. SKIN: Warm, dry, normal turgor, no rashes or lesions noted, normal capillary refill. 12/07/2016 MRCP: Cholelithiasis without MRI evidence of acute cholecytitis. No evidence of choledocholithiasis. Extrahepatic biliary duct dilatation. Mild dilatation of the main pancreatic duct. Diffuse hepatic steatosis is seen. 12/30/2016 Gall bladder ultrasound-Cholelithiasis. Mild extrabiliary tract dilatation. Minimal to mild non specific dilatation of the main pancreatic duct identified on recently performed MRI/MRCP is difficult to appreciate on sonography. ASSESSMENT/PLAN: Patient is a 71 year old female with significant past medical history of Hypertension, Hyperlipidemia, Diabetes Mellitus, Renal colic s/p lithotripsy , Abdominal hernia, Cholelithiasis presented with severe epigastric pain. # Likely Pancreatitis [place] SCORE 7 points Patient presented with severe epigastric pain radiating towards the back. On arrival, Afebrile, no leukocytosis, LIpase- 3734, urine urobilinogen 2+ In the ED, patient received IV NS 500mls, Pantop IV, Famotidine 20mg IV, Ketorolac Admitted in Med-Surg NPO IVF: D5-1/2 NS @ 100mls/hr Pain control, at this time denies abdominal pain Dr. Wilburn consult placed Possible ERCP Patient was supposed to get an ERCP as outpatient after she was discharged on 12/09/16 but never followed up. # Cholecystitis vs choledocholithiasis Elevated liver enzymes AST 246> 139 ALT; ALP 266 Ultrasound of Gall bladder report mentioned as above MRCP report done on 12/07/2016 mentioned as above # Diabetes Last HbA1c 6.4 (4 months ago) HbA1c ordered, report pending Finger stick glucose monitoring Insulin sliding scale # Hypertension Hold PO meds ( on Lisinopril 20mg Daily) # Hyperlipidemia Hold PO meds ( On simvastatin 20mg PO HS) # FEN IV D5/ 1/2 NS @ 100mls/hr Electrolytes to be repeated NPO for now # Prophylaxis For DVT- On Heparin 5000 IU sq For GI- On Famotidine # Code Status-Full Code # Dispo: Admitted in Med-Surg. Duration of stay unknown. Illness, Investigation and Plan of care explained to the patient. She verbalized understanding. Case seen and discussed with Dr. Nielsen. Visit type - Emergency Visit Emergency Visit: Yes ED Registration Date: 12/30/16 Care time: The patient presented to the Emergency Department on the above date and was hospitalized for further evaluation of their emergent condition. - New Patient This patient is new to me today: Yes Date on this admission: 12/30/16 - Critical Care Critical Care patient: No
[2016-12-30] MEDS ORDERED: DEXTROSE 5%-0.45% SALINE 1,000 ML IV SCH (00:45)
--- NOTE | 2016-12-30 01:24 | MSN ---
Admitting History and Physical - Admission Chief Complaint: Epigastric pain History of Present Illness: Patient is a 71 y/o F with PMHx of cholelithiasis, nephrolithiasis, HTN, HLD, and DMII, presenting to the ER with midline epigastric pain. Patient states that the pain started on 12/29/16 @ 12pm with pain that was predominantly located in the midline and radiating to her back. Patient states that the pain was sharp, has been coming and going, and was approximately a 7/10 in intensity. Patient stated that nothing has made it better or worse but does say that she has not eaten well because of the pain. 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 No: AFIB, Aneurysm, Aortic Insufficiency, Aortic Stenosis, CAD, CHF, Deep Vein Thrombosis, [place], Mitral Insufficiency, Mitral Stenosis, Murmur, Pulmonary Hypertension, Other Pulmonary: No: Asthma, Bronchitis, Cancer, COPD, O2 Dependent, Pneumonia, Previously Intubated, Pulmonary Embolus, Pulmonary Fibrosis, Sleep Apnea, Other Gastrointestinal: Yes: Hiatal Hernia. No: Ascites, Cancer, Constipation, Crohn' s Disease, Diverticulitis, Diverticulosis, Esophageal Varices, Gastritis, GERD, GI Bleed, Hemorrhoids, Inflamatory Bowel Disease, Irritable Bowel Disease, Pancreatitis, Peptic Ulcer Disease, Ulcerative Colitis, Other Hepatobiliary: Yes: Cholelithiasis. No: Cirrhosis, Cholecystitis, Choledocholithiasis, Hepatitis A, Hepatitis B, Hepatitis C, Other Renal/: Yes: Renal Calculi, UTI. No: Renal Failure, Renal Inusuff, BPH, Cancer, Hematuria, Hemodialysis, Neurogenic Bladder, Other Reproductive: No: Ectopic , Endometriosis, Fibroids, PID, Polycystic Ovary Syndrome, Postmenopausal, Other Heme/Onc: No: Anemia, B12 Deficiency, Bleeding Disorder, Cancer, Current Chemotherapy, Current Radiation Therapy, Hemochromatosis, Hypercoaguable State, Myeloproliferative Synd, Sickle Cell Disease, Sickle Cell Trait, Thrombocytopenia, Other Infectious Disease: No: AIDS, C-Diff, Herpes Zoster, HIV, MRSA, STD's, Tuberculosis, VREF, Other Psych: No: Addictions, Anxiety, Bipolar, Depression, Panic, Psychosis, Schizophrenia, Other Musculoskeletal: No: Bursitis, Chronic low back pain, Hemiparesis, Hemiplegia, Osteoarthritis, Paraplegia, Other Rheumatology: No: Fibromyalgia, Gout, Lupus, Rheumatoid Arthritis, Sarcoidosis, Vasculitis, Other ENT: No: Allergic Rhinitis, Sinusitis, Other Endocrine: Yes: Diabetes Mellitus. No: Redmon's Disease, Lina's Disease, Diabetes Insipidus, Hyperparathyroidism, Hyperthyroidism, Hypothyroidism, Osteopenia, SIADH, Other Dermatology: No: Basal Cell, Cellulitis, Eczema, Melanoma, Psoriasis, Squamous Cell, Other - Past Surgical History Past Surgical History: No: None, AAA Repair, AICD, Amputation, Appendectomy, Arthrosocopy, AV Fistula/Graft, Bariatric Surgery, Breast Biopsy, Bypass, CABG, Carotid Endarterectomy, Cataract Removal, Cholecystectomy, Colectomy, Colonoscopy, Colostomy, Craniotomy, , Cystectomy, Hernia Repair, Hysterectomy, Ileal Conduit, Ileosotomy, Joint Replacement, Kidney Transplant, Laminectomy, Liver Transplant, Mastectomy, Nephrectomy, Oopherectomy, Orchiectomy, Permanent Pacemaker, Prostatectomy, Splenectomy, Stent, Thoracotomy , TURP, Tonsillectomy, Tubal Ligation, Upper Endoscopy, Valve Replacement, Vasectomy, Vein Stripping/Ligation - Smoking History Smoking history: Never smoked Have you smoked in the past 12 months: No - Alcohol/Substance Use Hx Alcohol Use: No History of Substance Use: reports: None - Social History Usual Living Arrangement: Yes: With Spouse ADL: Independent History of Recent Travel: No Home Medications - Allergies Allergies/Adverse Reactions: Allergies Allergy/AdvReac Type Severity Reaction Status Date / Time No Known Drug Allergies Allergy Verified 07/31/15 17:44 - Home Medications Home Medications: Ambulatory Orders Metformin HCl [Glucophage -] 500 mg PO BID 05/02/14 Simvastatin 20 mg PO HS 05/02/14 Lisinopril [Prinivil] 20 mg PO DAILY 04/17/15 Aspirin [Herminio Chewable Aspirin] 81 mg PO DAILY 12/06/16 Cyanocobalamin (Vitamin B-12) [Vitamin B-12] 1,000 mcg PO DAILY 12/06/16 Sertraline HCl [Zoloft -] 100 mg PO DAILY 12/06/16 Family Disease History - Family Disease History Family Disease History: CA: Father Review of Systems - Review of Systems Constitutional: reports: Loss of Appetite Eyes: reports: No Symptoms HENT: reports: No Symptoms Neck: reports: No Symptoms Cardiovascular: reports: No Symptoms Respiratory: reports: No Symptoms Gastrointestinal: reports: Abdominal Pain (midline pain that comes and goes, RUQ and LUQ pain with light palpation) Genitourinary: reports: No Symptoms Breasts: reports: No Symptoms Reported Musculoskeletal: reports: No Symptoms Integumentary: reports: No Symptoms Neurological: reports: No Symptoms Endocrine: reports: No Symptoms Hematology/Lymphatic: reports: No Symptoms Psychiatric: reports: No Symptoms Physical Examination Vital Signs: Vital Signs Temperature 98.1 F 12/29/16 20:48 Pulse Rate 72 12/29/16 20:48 Respiratory Rate 20 12/29/16 20:48 Blood Pressure 160/82 12/29/16 20:48 O2 Sat by Pulse Oximetry (%) 98 12/29/16 20:48 Constitutional: Yes: Well Nourished, No Distress, Calm Eyes: Yes: WNL, Conjunctiva Clear, EOM Intact HENT: Yes: WNL, Atraumatic, Normocephalic Neck: Yes: WNL, Supple, Trachea Midline Cardiovascular: Yes: WNL, Regular Rate and Rhythm Respiratory: Yes: WNL, Regular, CTA Bilaterally Gastrointestinal: Yes: WNL, Soft, Hernia, Hyperactive Bowel Sounds, Tenderness, Epigastrium Renal/: Yes: WNL Musculoskeletal: Yes: WNL Extremities: Yes: WNL Edema: No Peripheral Pulses WNL: Yes Integumentary: Yes: WNL Neurological: Yes: WNL, Alert, Oriented ...Motor Strength: WNL Psychiatric: Yes: WNL, Alert, Oriented Imaging - Results Ultrasound: Report Reviewed (No change in ultrasound since last done in Nov. Cholelithiasis with NO cholecystitis) Problem List - Problems (1) Gallstone pancreatitis Code(s): K85.10 - BILIARY ACUTE PANCREATITIS WITHOUT NECROSIS OR INFECTION (2) Hypertension Code(s): I10 - ESSENTIAL (PRIMARY) HYPERTENSION (3) HLD (hyperlipidemia) Code(s): E78.5 - HYPERLIPIDEMIA, UNSPECIFIED (4) Diabetes type 2, controlled Code(s): E11.9 - TYPE 2 DIABETES MELLITUS WITHOUT COMPLICATIONS Assessment/Plan Patient is a 71 y/o F with PMHx of cholelithiasis, nephrolithiasis, HTN, HLD, and DMII, presenting to the ER with midline epigastric pain. 1. Consider pancreatitis - Patient put on NPO - Continue IVF, D5-N1/2 @ 100mL/hr - GI consulted - Continue pain medications PRN - Continue to monitor labs, pain 2. Cholelithiasis - U/S shows cholelithiasis with no changes since last U/S in Nov - Continue to monitor patient for symptoms 3. HTN - HOLD Lisinopril 20 mg PO Daily 4. HLD - HOLD Simvastatin 20 mg PO HS 5. DMII - A1C ordered - SSI, Continue BGCs ACHS 6. Depression - HOLD Zoloft 100 mg PO Daily 7. DVT Prophylaxis - Continue Heparin 5,000 units SQ TID Dispo: F/U with GI, further imaging for better picture
[2016-12-30] MEDS ORDERED: IBUPROFEN 600 MG TABLET (FP) PO ONE (03:47)
[2016-12-30 05:31] VITALS: BMI 32.3
[2016-12-30] MEDS: HEPARIN NA (PORCINE) 5,000 UNITS/ML 1ML VIAL SQ SCH ×3 (06:13→21:20)
[2016-12-30] MEDS: INSULIN SLIDING SCALE (NOVOLOG) 1 VIAL SQ SCH ×3 (06:15→17:11)
[2016-12-30 06:53] LABS: BASOPHIL 0.5 % (0-2.0); EOSINOPHIL 1.2 % (0-4.5); MCH 30.1 pg (25.7-33.7); MCHC 34.2 g/dl (32.0-36.0); MEAN CELL VOLUME 87.9 fl (80-96); MEAN PLT VOLUME 7.5 fl (7.5-11.1); NEUTROPHILS 72.6 % (42.8-82.8); PLATELET COUNT 237 K/MM3 (134-434); RDW 14.6 % (11.6-15.6); WHITE BLOOD COUNT 6.7 K/mm3 (4.0-10.0)
[2016-12-30 07:00] LABS: INR 1.13 (0.82-1.09); PROTHROMBIN TIME (PATIENT) 12.5 SEC (9.98-11.88)
[2016-12-30 07:03] LABS: ACTIVATED PTT 34.8 SECONDS (26.9-34.4)
[2016-12-30 07:08] LABS: ALBUMIN 3.3 g/dl (3.4-5.0); ANION GAP 11 (8-16); CALCIUM 8.4 mg/dL (8.5-10.1); CO2 28 mmol/L (21-32); CREATININE 0.6 mg/dL (0.55-1.02); GLUCOSE,RANDOM 124 mg/dL (74-106); MAGNESIUM 2.1 mg/dL (1.8-2.4); PHOSPHOROUS 2.9 mg/dL (2.5-4.9); SGOT/AST 104 U/L (15-37); SGPT/ALT 95 U/L (12-78)
[2016-12-30 07:10] LABS: ALK PHOS 226 U/L (45-117); BILIRUBIN,TOTAL 0.9 mg/dL (0.2-1.0); TOT PROT 6.4 g/dl (6.4-8.2)
--- NOTE | 2016-12-30 08:53 | MSN ---
Progress Note (short form) - Note Progress Note: SUBJECTIVE: Pt seen and examined at bedside. NEHEMIAH overnight. Pt states she feels better this morning and denies abdominal pain. She denies fevers, chills, nausea , vomiting, SOB, CP, diaphoresis, dysuria, or hematuria. Pt complains of L groin pain on and off. Active Medications Generic Name Dose Route Start Last Admin Trade Name Holly PRN Reason Stop Dose Admin Aspirin 81 mg 12/30/16 14:30 Asa - PO DAILY [facility] Heparin Sodium (Porcine) 5,000 unit 12/30/16 06:00 12/30/16 13:57 Heparin - SQ 5,000 unit TID KARLA Administration Lactated Ringer's 1,000 mls @ 100 mls/hr 12/30/16 13:30 12/30/16 13:56 Lactated Ringers Solution IV 100 mls/hr ASDIR KARLA Administration Insulin Aspart 1 vial 12/30/16 07:00 12/30/16 12:33 Novolog Vial Sliding Scale - SQ Not Given ACHS [facility] Protocol Lisinopril 20 mg 12/30/16 11:00 12/30/16 12:43 Prinivil PO 20 mg DAILY KARLA Administration Ranitidine HCl 150 mg 12/30/16 22:00 Zantac - PO BID KARLA Sertraline HCl 100 mg 12/30/16 11:00 12/30/16 12:43 Zoloft - PO 100 mg DAILY KARLA Administration OBJECTIVE: Vital Signs Period Temp Pulse Resp BP Sys/Arita Pulse Ox Last 24 Hr 97.9 F-98.6 F 60-72 18-20 141-160/71-82 97-98 GENERAL: AAOx3 in NAD HEAD: NC, AT, PERRLA, EOMI, no icterus NECK: No JVD HEART: RRR +S1/S2 with 1/6 systolic murmur at R upper sternal border LUNG: CTAB, no crackles/rhonchi/wheezing ABDOMEN: Soft, distended, TTP in RUQ, negative [place], tympanic to percussion, no guarding/rigidity, no CVA tenderness EXT: Warm BL LE, 2+ DP/radial, no edema in LE NEURO: Normal speech, motor and sensation grossly intact CBC WBC 6.7 K/mm3 (4.0-10.0) 12/30/16 05:32 RBC 4.11 M/mm3 (3.60-5.2) 12/30/16 05:32 Hgb 12.4 GM/dL (10.7-15.3) D 12/30/16 05:32 Hct 36.1 % (32.4-45.2) 12/30/16 05:32 MCV 87.9 fl (80-96) 12/30/16 05:32 MCHC 34.2 g/dl (32.0-36.0) 12/30/16 05:32 RDW 14.6 % (11.6-15.6) 12/30/16 05:32 Plt Count 237 K/MM3 (134-434) D 12/30/16 05:32 MPV 7.5 fl (7.5-11.1) 12/30/16 05:32 Neutrophils % 72.6 % (42.8-82.8) 12/30/16 05:32 Lymphocytes % 19.0 % (8-40) 12/30/16 05:32 Monocytes % 6.7 % (3.8-10.2) 12/30/16 05:32 Eosinophils % 1.2 % (0-4.5) 12/30/16 05:32 Basophils % 0.5 % (0-2.0) 12/30/16 05:32 CMP Sodium 145 mmol/L (136-145) 12/30/16 05:32 Potassium 3.5 mmol/L (3.5-5.1) 12/30/16 05:32 Chloride 106 mmol/L (98-107) 12/30/16 05:32 Carbon Dioxide 28 mmol/L (21-32) 12/30/16 05:32 Anion Gap 11 (8-16) 12/30/16 05:32 BUN 9 mg/dL (7-18) 12/30/16 05:32 Creatinine 0.6 mg/dL (0.55-1.02) 12/30/16 05:32 Creat Clearance w eGFR > 60 (>60) 12/30/16 05:32 POC Glucometer 124 UNITS (()) 12/30/16 05:55 Random Glucose 124 mg/dL (74-106) H 12/30/16 05:32 Calcium 8.4 mg/dL (8.5-10.1) L 12/30/16 05:32 Phosphorus 2.9 mg/dL (2.5-4.9) 12/30/16 05:32 Magnesium 2.1 mg/dL (1.8-2.4) 12/30/16 05:32 Total Bilirubin 0.9 mg/dL (0.2-1.0) 12/30/16 05:32 AST 104 U/L (15-37) H D 12/30/16 05:32 ALT 95 U/L (12-78) H D 12/30/16 05:32 Alkaline Phosphatase 226 U/L (45-117) H 12/30/16 05:32 Creatine Kinase 63 IU/L (26-192) 12/29/16 21:25 Troponin I < 0.02 ng/ml (0.00-0.05) 12/29/16 21:25 Total Protein 6.4 g/dl (6.4-8.2) 12/30/16 05:32 Albumin 3.3 g/dl (3.4-5.0) L 12/30/16 05:32 Lipase 3734 U/L (73-393) H 12/29/16 21:25 Urine Test Results Urine Color Yellow 12/29/16 21:25 Urine Appearance Clear 12/29/16 21:25 Urine pH 6.0 (5.0-8.0) 12/29/16 21:25 Ur Specific [place] 1.013 (1.001-1.035) 12/29/16 21:25 Urine Protein Negative (NEGATIVE) 12/29/16 21:25 Urine Glucose (UA) Negative (NEGATIVE) 12/29/16 21:25 Urine Ketones Negative (NEGATIVE) 12/29/16 21:25 Urine Blood Negative (NEGATIVE) 12/29/16 21:25 Urine Nitrite Negative (NEGATIVE) 12/29/16 21:25 Urine Bilirubin Negative (NEGATIVE) 12/29/16 21:25 Ur Leukocyte Esterase 2+ (NEGATIVE) H 12/29/16 21:25 Urine RBC 1 /hpf (0-3) 12/29/16 21:25 Urine WBC 44 /hpf (3-5) 12/29/16 21:25 Ur Epithelial Cells Rare /hpf (FEW) 12/29/16 21:25 Urine Mucus Rare 12/29/16 21:25 RUQ US (12/29/16): Cholelithiasis, mild GB wall thickening, CBD measuring 0.9cm, diffuse fatty liver, mild hepatomegaly CT Abd/Pelvis (12/30/16): Cholelithiasis with narrowing of GB fundus, nml biliary tree, 7mm stone in lower pole L kidney, small stone in lower pole R kidney MRCP (12/30/16): Cholelithiasis, common hepatic duct 7mm, CBD 5mm, no filling defects of biliary tree ECHO (12/30/16): Mild conc LVH, LV fxn is nml, LA mildly dilated, mild MR, mild TR, elevated RVSP @30-40mmHg A/P: Pt is a 71 yo female with a PMHx of HTN, HLD, DM2, nephrolithiasis s/p lithotripsy, abdominal hernia, and known cholelithiasis, who presents to the ED with severe epigastric pain radiating to her back without associated N/V. Pt was admitted around 3 weeks ago with similar presentation. 1. Biliary colic with elevated LFTs and lipase -Similar presentation to last admission. Surgery to remove GB was not performed at that time. Pt did not FU for outpt ERCP -Pain has resolved since presentation this admission -Elevated LFTs and lipase likely 2/2 gallstone passing through CBD -Imaging confirms cholelithiasis -GI consult appreciated. Agrees with plan for surgery consult and cholecystectomy. Advised pt to have outpt colonoscopy with Dr. Wilburn -Surgery consult pending -ECHO done. Preop risk assessment for intermediate risk procedure -LRs @100mls/hr -FU CMP in AM 2. Chronic cholecystitis -Plan as above 3. HTN -Stable -Lisinopril 20mg daily 4. Diabetes -HbA1C 6.3% -BGM -SSI 5. HLD -Hold Simvastatin 20mg daily -Continue once tolerating PO diet post op 6. FEN -LRs @100mls/hr -BMP WNL. Monitor and correct any electrolyte abnormalities -Clear liquid diet 7. DVT ppx -Heparin 5000U SQ TID -Hold dose morning of surgery 8. Dispo -Admitted to Med-Surg -Awaiting surgery consult and plan for OR Florentino Oswald, MS3 Problem List - Problems (1) Cholecystitis with cholelithiasis (2) Diabetes type 2, controlled (3) Gallstone pancreatitis (4) HLD (hyperlipidemia) (5) Hypertension (6) Renal calculi (7) DVT prophylaxis (8) Diabetes mellitus (9) Dilated bile duct (10) Elevated liver enzymes
[2016-12-30] MEDS ORDERED: FAMOTIDINE 20 MG/50 ML IVPB 50 ML IVPB SCH (10:00)
--- NOTE | 2016-12-30 10:02 | EKG ---
Test Reason : Blood Pressure : / mmHG Vent. Rate : 062 BPM Atrial Rate : 062 BPM P-R Int : 184 ms QRS Dur : 082 ms QT Int : 414 ms P-R-T Axes : 057 -02 030 degrees QTc Int : 420 ms POOR DATA QUALITY, INTERPRETATION MAY BE ADVERSELY AFFECTED NORMAL SINUS RHYTHM NORMAL ECG WHEN COMPARED WITH ECG OF 06-DEC-2016 22:38, NO SIGNIFICANT CHANGE WAS FOUND Confirmed by ARELI DIANE MD ([id number]) on 12/30/2016 10:02:13 AM Referred By: Confirmed By:ARELI DIANE MD
[2016-12-30] MEDS ORDERED: LORAZEPAM CARPU-JECT 2 MG/ML DISP.SYRIN IVPUSH ONE (10:30)
[2016-12-30] MEDS ORDERED: SODIUM CHLORIDE 1,000 ML IV SCH (10:30)
[2016-12-30] MEDS: SERTRALINE HCL 50 MG TABLET (FP) PO SCH (12:43)
[2016-12-30] MEDS: LISINOPRIL 20 MG TABLET (FP) PO SCH (12:43)
--- NOTE | 2016-12-30 13:11 | CON.GI ---
Consult Consult Specialty:: Gastroenterology ( covering Dr Wilburn) Referred by:: Dr Yeni Kirby Reason for Consultation:: Pancreatitis - History of Present Illness Chief Complaint: Severe abdominal pain History of Present Illness: 71W diabetic developed severe abdominal pain yesterday reminiscent of the attack she had with biliary pancreatitis on 12/07/16 when she as seen by Dr Wilburn. She had LFT abnormalities c/w biliary pancreatitis but MRCP was negative for CBD stones. She did not have a cholecystectomy in the interim and now presents with recurrent biliary pancreatitis and LFT elevations. Fortunately a stat MRCP reveals no CBD stones and she is already feeling better. She has never had a colonoscopy. - History Source History Provided By: Patient Limitations to Obtaining History: No Limitations - Past Medical History OCCUPATIONAL THER[employer]Y [employer] DIRECTOR: Yes: Alzheimer's, CVA, Dementia, Migraine, Multiple Sclerosis, Peripheral Neuropathy, Seizure, Syncope, TIA, Vertigo. No: Parkinson's Cardio/Vascular: Yes: HTN, Hyperlipdemia. No: AFIB, Aneurysm, Aortic Insufficiency, Aortic Stenosis, CAD, CHF, Deep Vein Thrombosis, NM, Mitral Insufficiency, Mitral Stenosis, Murmur, Pulmonary Hypertension, Other Pulmonary: No: Asthma, Bronchitis, Cancer, COPD, O2 Dependent, Pneumonia, Previously Intubated, Pulmonary Embolus, Pulmonary Fibrosis, Sleep Apnea, Other Gastrointestinal: Yes: Hiatal Hernia, Pancreatitis (biliary pancreatitis on with stone spontaneously passing). No: Ascites, Cancer, Constipation, Crohn' s Disease, Diverticulitis, Diverticulosis, Esophageal Varices, Gastritis, GERD, GI Bleed, Hemorrhoids, Inflamatory Bowel Disease, Irritable Bowel Disease, Peptic Ulcer Disease, Ulcerative Colitis, Other Hepatobiliary: Yes: Cholelithiasis, Choledocholithiasis, Other (fatty liver). No: Cirrhosis, Cholecystitis, Hepatitis A, Hepatitis B, Hepatitis C Renal/: Yes: Renal Calculi (requiring stents and repeat ESWLs), UTI. No: Renal Failure, Renal Inusuff, BPH, Cancer, Hematuria, Hemodialysis, Neurogenic Bladder, Other Infectious Disease: No: AIDS, C-Diff, Herpes Zoster, HIV, MRSA, STD's, Tuberculosis, VREF, Other Psych: No: Addictions, Anxiety, Bipolar, Depression, Panic, Psychosis, Schizophrenia, Other Musculoskeletal: No: Bursitis, Chronic low back pain, Hemiparesis, Hemiplegia, Osteoarthritis, Paraplegia, Other Rheumatology: No: Fibromyalgia, Gout, Lupus, Rheumatoid Arthritis, Sarcoidosis, Vasculitis, Other ENT: No: Allergic Rhinitis, Sinusitis, Other Endocrine: Yes: Diabetes Mellitus. No: Henry's Disease, Lina's Disease, Diabetes Insipidus, Hyperparathyroidism, Hyperthyroidism, Hypothyroidism, Osteopenia, SIADH, Other Dermatology: No: Basal Cell, Cellulitis, Eczema, Melanoma, Psoriasis, Squamous Cell, Other Additional Medical History: Cataracts - Past Surgical History Past Surgical History: Yes: None. No: AAA Repair, AICD, Amputation, Appendectomy, Arthrosocopy, AV Fistula/Graft, Bariatric Surgery, Breast Biopsy, Bypass, CABG, Carotid Endarterectomy, Cataract Removal, Cholecystectomy, Colectomy, Colonoscopy, Colostomy, Craniotomy, , Cystectomy, Hernia Repair, Hysterectomy, Ileal Conduit, Ileosotomy, Joint Replacement, Kidney Transplant, Laminectomy, Liver Transplant, Mastectomy, Nephrectomy, Oopherectomy , Orchiectomy, Permanent Pacemaker, Prostatectomy, Splenectomy, Stent, Thoracotomy, TURP, Tonsillectomy, Tubal Ligation, Upper Endoscopy, Valve Replacement, Vasectomy, Vein Stripping/Ligation - Alcohol/Substance Use Hx Alcohol Use: No History of Substance Use: reports: None - Smoking History Smoking history: Never smoked Have you smoked in the past 12 months: No - Social History Usual Living Arrangement: Alone ADL: Independent 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 Place of : [facility] History of Recent Travel: No Home Medications - Allergies Allergies/Adverse Reactions: Allergies Allergy/AdvReac Type Severity Reaction Status Date / Time No Known Drug Allergies Allergy Verified 07/31/15 17:44 - Home Medications Home Medications: Ambulatory Orders Metformin HCl [Glucophage -] 500 mg PO BID 05/02/14 Simvastatin 20 mg PO HS 05/02/14 Lisinopril [Prinivil] 20 mg PO DAILY 04/17/15 Aspirin [Herminio Chewable Aspirin] 81 mg PO DAILY 12/06/16 Cyanocobalamin (Vitamin B-12) [Vitamin B-12] 1,000 mcg PO DAILY 12/06/16 Sertraline HCl [Zoloft -] 100 mg PO DAILY 12/06/16 Family Disease History - Family Disease History Family Disease History: Heart Disease: Father ( mi age 85), Other: Mother ( 88 natural causes) Review of Systems - Review of Systems Constitutional: reports: No Symptoms Eyes: reports: No Symptoms HENT: reports: No Symptoms Neck: reports: No Symptoms Cardiovascular: reports: No Symptoms Respiratory: reports: No Symptoms Gastrointestinal: reports: Abdominal Pain, Constipation, Nausea Musculoskeletal: reports: No Symptoms Integumentary: reports: No Symptoms Neurological: reports: No Symptoms Endocrine: reports: No Symptoms Physical Exam-GI Vital Signs: Vital Signs Temperature 97.9 F 12/30/16 05:27 Pulse Rate 60 12/30/16 05:27 Respiratory Rate 18 12/30/16 05:58 Blood Pressure 144/71 12/30/16 05:27 O2 Sat by Pulse Oximetry (%) 97 12/30/16 05:58 CBC,CMP WBC 6.7 K/mm3 (4.0-10.0) 12/30/16 05:32 RBC 4.11 M/mm3 (3.60-5.2) 12/30/16 05:32 Hgb 12.4 GM/dL (10.7-15.3) D 12/30/16 05:32 Hct 36.1 % (32.4-45.2) 12/30/16 05:32 MCV 87.9 fl (80-96) 12/30/16 05:32 MCHC 34.2 g/dl (32.0-36.0) 12/30/16 05:32 RDW 14.6 % (11.6-15.6) 12/30/16 05:32 Plt Count 237 K/MM3 (134-434) D 12/30/16 05:32 MPV 7.5 fl (7.5-11.1) 12/30/16 05:32 Neutrophils % 72.6 % (42.8-82.8) 12/30/16 05:32 Lymphocytes % 19.0 % (8-40) 12/30/16 05:32 Monocytes % 6.7 % (3.8-10.2) 12/30/16 05:32 Eosinophils % 1.2 % (0-4.5) 12/30/16 05:32 Basophils % 0.5 % (0-2.0) 12/30/16 05:32 Sodium 145 mmol/L (136-145) 12/30/16 05:32 Potassium 3.5 mmol/L (3.5-5.1) 12/30/16 05:32 Chloride 106 mmol/L (98-107) 12/30/16 05:32 Carbon Dioxide 28 mmol/L (21-32) 12/30/16 05:32 Anion Gap 11 (8-16) 12/30/16 05:32 BUN 9 mg/dL (7-18) 12/30/16 05:32 Creatinine 0.6 mg/dL (0.55-1.02) 12/30/16 05:32 Creat Clearance w eGFR > 60 (>60) 12/30/16 05:32 POC Glucometer 117 UNITS (()) 12/30/16 12:32 Random Glucose 124 mg/dL (74-106) H 12/30/16 05:32 Hemoglobin A1c % 6.3 % (4.8-6.0) H D 12/30/16 02:30 Calcium 8.4 mg/dL (8.5-10.1) L 12/30/16 05:32 Phosphorus 2.9 mg/dL (2.5-4.9) 12/30/16 05:32 Magnesium 2.1 mg/dL (1.8-2.4) 12/30/16 05:32 Total Bilirubin 0.9 mg/dL (0.2-1.0) 12/30/16 05:32 AST 104 U/L (15-37) H D 12/30/16 05:32 ALT 95 U/L (12-78) H D 12/30/16 05:32 Alkaline Phosphatase 226 U/L (45-117) H 12/30/16 05:32 Creatine Kinase 63 IU/L (26-192) 12/29/16 21:25 Troponin I < 0.02 ng/ml (0.00-0.05) 12/29/16 21:25 Total Protein 6.4 g/dl (6.4-8.2) 12/30/16 05:32 Albumin 3.3 g/dl (3.4-5.0) L 12/30/16 05:32 Lipase 3734 U/L (73-393) H 12/29/16 21:25 Current Medications Generic Name Dose Route Start Last Admin Trade Name Freq PRN Reason Stop Dose Admin Heparin Sodium (Porcine) 5,000 unit 12/30/16 06:00 12/30/16 06:13 Heparin - SQ 5,000 unit TID KARLA Administration Sodium Chloride 1,000 mls @ 100 mls/hr 12/30/16 10:30 12/30/16 12:30 Normal Saline - IV 100 mls/hr ASDIR KARLA Administration Insulin Aspart 1 vial 12/30/16 07:00 12/30/16 12:33 Novolog Vial Sliding Scale - SQ Not Given ACHS [facility] Protocol Lisinopril 20 mg 12/30/16 11:00 12/30/16 12:43 Prinivil PO 20 mg DAILY KARLA Administration Ranitidine HCl 150 mg 12/30/16 22:00 Zantac - PO BID KARLA Sertraline HCl 100 mg 12/30/16 11:00 12/30/16 12:43 Zoloft - PO 100 mg DAILY KARLA Administration Constitutional: Yes: Anxious Eyes: Yes: Conjunctiva Clear HENT: Yes: Normocephalic Neck: Yes: Supple Cardiovascular: Yes: Regular Rate and Rhythm Respiratory: Yes: CTA Bilaterally Gastrointestinal Inspection: Yes: Hernia (umbilical hernia is nontender) ...Palpate: Yes: Soft, Tenderness (epigastrium without peritoneal signs) ...Percussion: Yes: Tympanitic ...Rectal Exam: Yes: Guaiac Negative (no rectal masses) Extremities: Yes: WNL Labs: CBC, BMP 12/30/16 05:32 12/30/16 05:32 INR, PTT INR 1.13 (0.82-1.09) 12/30/16 05:32 Imaging - Results Cat Scan: Image Reviewed (GB fundus narrowing, gallstones, nephrolithiasis) MRI: Image Reviewed (MRCP reveals no CBD stones or dilation, gallstones are noted) Problem List - Problems (1) Choledocholithiasis Code(s): K80.50 - CALCULUS OF BILE DUCT W/O CHOLANGITIS OR CHOLECYST W/O OBST Assessment/Plan Recurrent biliary pancreatitis due to passage of another gallstone into the CBD. Fortunately this stone has passed spontaneously again so plans for ERCP are cancelled. She will need a cholecystectomy as soon as surgically feasible as she is likely to pass more stones. Surgical consultation is pending. Continue antibiotics. I have also advised a screening colonoscopy with Dr Wilburn when she recovers from her GB surgery.
[2016-12-30] MEDS ORDERED: LACTATED RINGERS SOLUTION 1,000 ML IV SCH (13:30)
--- NOTE | 2016-12-30 14:12 | PN ---
Addendum entered and electronically signed by Paulina Faustin RES 12/30/16 14: 27: TTE appreciated, similar to 2014 study, no significant cardiac disfunction. Patient is low risk for intermediate risk surgery. Original Note: Physical Exam: SUBJECTIVE: Patient seen and examined Patient resting in bed NAD. No acute events. afebrile and hemodynamically stable. states her abd pain has resolved in ED yesterday. states it was intermittent lasting 10-15 min at a time, while during last admission pain was continuous. no n/v. no diarrhea. Her last bm was on the . Denies f/c, chest pain, sob, loc, dizziness, dysuria. OBJECTIVE: Vital Signs Period Temp Pulse Resp BP Sys/Arita Pulse Ox Last 24 Hr 97.9 F-98.6 F 60-62 18-18 141-144/71-73 97-97 GENERAL: The patient is awake, alert, and fully oriented, in no acute distress. HEAD: Normal with no signs of trauma. EYES: PERRL, extraocular movements intact, sclera anicteric, conjunctiva clear. No ptosis. ENT: moist mucous membranes. NECK: supple. LUNGS: mild bibasilar crackles HEART: Regular rate and rhythm, S1, S2 grade 2 systolic ejection murmur ABDOMEN: Soft, mildly diffusely tender, mildly distended, normoactive bowel sounds, no guarding, no rebound, no hepatosplenomegaly, no masses. EXTREMITIES: 2+ pulses, warm, well-perfused, no edema. NEUROLOGICAL: Cranial nerves II through XII grossly intact. Normal speech, gait not observed. PSYCH: Normal mood, normal affect. SKIN: Warm, dry Laboratory Results - last 24 hr 12/30/16 12/30/16 12/30/16 02:30 05:32 05:32 WBC RBC Hgb Hct MCV MCHC RDW Plt Count MPV Neutrophils % Lymphocytes % Monocytes % Eosinophils % Basophils % INR 1.13 PTT (Actin FS) 34.8 H Sodium 145 Potassium 3.5 Chloride 106 Carbon Dioxide 28 Anion Gap 11 BUN 9 Creatinine 0.6 Creat Clearance w eGFR > 60 POC Glucometer Random Glucose 124 H Hemoglobin A1c % 6.3 H D Calcium 8.4 L Phosphorus 2.9 Magnesium 2.1 Total Bilirubin 0.9 AST 104 H D ALT 95 H D Alkaline Phosphatase 226 H Total Protein 6.4 Albumin 3.3 L 12/30/16 12/30/16 12/30/16 05:32 05:55 12:32 WBC 6.7 RBC 4.11 Hgb 12.4 D Hct 36.1 MCV 87.9 MCHC 34.2 RDW 14.6 Plt Count 237 D MPV 7.5 Neutrophils % 72.6 Lymphocytes % 19.0 Monocytes % 6.7 Eosinophils % 1.2 Basophils % 0.5 INR PTT (Actin FS) Sodium Potassium Chloride Carbon Dioxide Anion Gap BUN Creatinine Creat Clearance w eGFR POC Glucometer 124 117 Random Glucose Hemoglobin A1c % Calcium Phosphorus Magnesium Total Bilirubin AST ALT Alkaline Phosphatase Total Protein Albumin Active Medications Generic Name Dose Route Start Last Admin Trade Name Freq PRN Reason Stop Dose Admin Heparin Sodium (Porcine) 5,000 unit 12/30/16 06:00 12/30/16 13:57 Heparin - SQ 5,000 unit TID KARLA Administration Lactated Ringer's 1,000 mls @ 100 mls/hr 12/30/16 13:30 12/30/16 13:56 Lactated Ringers Solution IV 100 mls/hr ASDIR KARLA Administration Insulin Aspart 1 vial 12/30/16 07:00 12/30/16 12:33 Novolog Vial Sliding Scale - SQ Not Given ACHS [facility] Protocol Lisinopril 20 mg 12/30/16 11:00 12/30/16 12:43 Prinivil PO 20 mg DAILY KARLA Administration Ranitidine HCl 150 mg 12/30/16 22:00 Zantac - PO BID KARLA Sertraline HCl 100 mg 12/30/16 11:00 12/30/16 12:43 Zoloft - PO 100 mg DAILY KARLA Administration ASSESSMENT/PLAN: Patient is a 71 year old female with significant past medical history of Hypertension, Hyperlipidemia, Diabetes Mellitus, Renal colic s/p lithotripsy , Abdominal hernia, Cholelithiasis presented with severe epigastric pain. Abd CT: cholelithiasis, narrow GB fundus. Pancreas wnl GB US: unchanged from prior, stones, mild extrahepatic tree dil Biliary colic with mild Pancreatitis -intermittent pain consistent with passing multiple stones vs GB jennifer against a stone -recurrent from 12/23/16 -missed outpatient ERCP -imaging appreciated -Lipase 3700, higher than last admission -transaminitis trending down -urine urobilinogen 2+ -GI, Surgery consult -MRCP -NPO; start clears if no stone seen -NS @ 100 -requires cholecystectomy this admission -preop TTE -pre op risk assessment for intermediate risk surgery Cholecystitis -management as above Diabetes -A1C 6.3 -BGM -Insulin sliding scale HTN -Lisinopril 20mg d Hyperlipidemia -hold imvastatin 20mg PO HS FEN IV NS@100 lytes stable NPO for now, advance to clears if MRCP negative PPX: Heparin 5000 IU sq Famotidine Dispo: Med-Surg Problem List - Problems (1) Cholecystitis with cholelithiasis Code(s): K80.10 - CALCULUS OF GALLBLADDER W CHRONIC CHOLECYST W/O OBSTRUCTION Qualifiers: Cholelithiasis location: gallbladder and bile duct Cholecystitis acuity : acute Biliary obstruction: without biliary obstruction Qualified Code( s): K80.62 - Calculus of gallbladder and bile duct with acute cholecystitis without obstruction (2) Choledocholithiasis Code(s): K80.50 - CALCULUS OF BILE DUCT W/O CHOLANGITIS OR CHOLECYST W/O OBST (3) Diabetes type 2, controlled Code(s): E11.9 - TYPE 2 DIABETES MELLITUS WITHOUT COMPLICATIONS (4) Gallstone pancreatitis Code(s): K85.10 - BILIARY ACUTE PANCREATITIS WITHOUT NECROSIS OR INFECTION (5) HLD (hyperlipidemia) Code(s): E78.5 - HYPERLIPIDEMIA, UNSPECIFIED (6) Hypertension Code(s): I10 - ESSENTIAL (PRIMARY) HYPERTENSION (7) Renal calculi Code(s): N20.0 - CALCULUS OF KIDNEY (8) DVT prophylaxis Code(s): XNW4011 - (9) Diabetes mellitus Code(s): E11.9 - TYPE 2 DIABETES MELLITUS WITHOUT COMPLICATIONS Qualifiers: Diabetes mellitus type: type 2 Diabetes mellitus complication status: with hyperglycemia Diabetes mellitus continuous churn buttermaker insulin use: without penitentiary use Qualified Code(s): E11.65 - Type 2 diabetes mellitus with hyperglycemia; Z79.4 - continuous churn buttermaker (current) use of insulin (10) Elevated liver enzymes Code(s): R74.8 - ABNORMAL LEVELS OF OTHER SERUM ENZYMES Visit type - Emergency Visit Emergency Visit: Yes ED Registration Date: 12/30/16 Care time: The patient presented to the Emergency Department on the above date and was hospitalized for further evaluation of their emergent condition. - New Patient This patient is new to me today: Yes Date on this admission: 12/30/16 - Critical Care Critical Care patient: No - Discharge Referral Referred to [facility] Med [facility].: No
[2016-12-30] MEDS ORDERED: ASPIRIN 81 MG CHEWABLE TABLETS PO SCH (14:30)
--- NOTE | 2016-12-30 16:06 | PN ---
Teaching Attending Note Name of Resident: Paulina Faustin ATTENDING PHYSICIAN STATEMENT I saw and evaluated the patient. I reviewed the resident's note and discussed the case with the resident. I agree with the resident's findings and plan as documented. SUBJECTIVE: no fever or chills , no abd pain at time of evaluation , no N/V . OBJECTIVE: NAd CV : RRR, 2/6 SM at RUSB. Lungs : CTAB Abd: soft, ND, TTP in epigastric area , no rebound tenderness or guarding , Fregoso's neg . Ext: no edema ASSESSMENT AND PLAN: 71 y/o lady with h/o Biliary colic on recent admission with cholelithiasis , HTN , HLP , DM , who presented with Abd pain , was found to have elevated lipase and gall stones 1- Abd pain: clearly the pt has passed a gall stone , which caused a transient obstruction of the pancreatic duct and caused the pain and elevated lipase . Now abd pain free, with minimal tenderness in epigastric area . US with thickening in gall bladder wall , and MRCP with no CBD stone or dilation - spoke with Dr. Ruiz, plan for CCY on Monday . - SPoke to Dr. Schneider , Abx are recommended until CCY is done due to the thickening in gall bladder wall - will start CTX and flagyl - start clears - hold ASa fro sx - change IVF to NS , and decrease rate due to LVH, might DC tomorrow - pre-OP risk stratification: this is a medium risk surgery . The pt herself has no signs or sx of ACS , CHF, or arrhythmias. although she has DM , and HTN, she has no CAD and no h/o lung or heart dz. she denies exertional CP . Functional capacity > 4 METS . although a faint murmur is heard in aortic area , this must be a flow murmur as Echo checked today showed no . Over all she is a low risk for jack-op cardiac complications . There is no need for further cardiac w/u before surgery 2- DM : hold metformin and cont SSI 3- HTN: resume lisinopril 4- Depression : resume sertraline 5- pyuria : has no sx , but she is diabetic. will send urine cx before Abx for cholecystitis are started DVT px
[2016-12-30] MEDS: LACTATED RINGERS SOLUTION 1,000 ML IV SCH (17:32)
[2016-12-30] MEDS: CEFTRIAXONE 50 ML IVPB SCH (18:06)
[2016-12-30] MEDS ORDERED: PT OWN MED DRAWER 7, Y5N ONE (18:39)
[2016-12-30] MEDS: METRONIDAZOLE PREMIXED IVPB 50 ML IVPB SCH (18:42)
[2016-12-30] MEDS: RANITIDINE HCL 150 MG TABLET (FP) PO SCH (21:20)
[2016-12-31] MEDS: METRONIDAZOLE PREMIXED IVPB 50 ML IVPB SCH ×3 (01:18→17:01)
[2016-12-31] MEDS: LACTATED RINGERS SOLUTION 1,000 ML IV SCH (03:13)
[2016-12-31] MEDS: HEPARIN NA (PORCINE) 5,000 UNITS/ML 1ML VIAL SQ SCH ×3 (06:22→21:52)
[2016-12-31] MEDS: INSULIN SLIDING SCALE (NOVOLOG) 1 VIAL SQ SCH ×3 (06:23→16:42)
[2016-12-31 08:54] LABS: MCH 29.7 pg (25.7-33.7); MCHC 33.6 g/dl (32.0-36.0); MEAN CELL VOLUME 88.5 fl (80-96); MEAN PLT VOLUME 7.1 fl (7.5-11.1); PLATELET COUNT 242 K/MM3 (134-434); RDW 14.7 % (11.6-15.6); WHITE BLOOD COUNT 5.5 K/mm3 (4.0-10.0)
[2016-12-31 08:56] LABS: BASOPHIL 0.8 % (0-2.0); EOSINOPHIL 2.1 % (0-4.5); MCH 29.8 pg (25.7-33.7); MCHC 33.7 g/dl (32.0-36.0); MEAN CELL VOLUME 88.6 fl (80-96); MEAN PLT VOLUME 7.1 fl (7.5-11.1); NEUTROPHILS 68.6 % (42.8-82.8); PLATELET COUNT 241 K/MM3 (134-434); RDW 14.9 % (11.6-15.6); WHITE BLOOD COUNT 5.6 K/mm3 (4.0-10.0)
[2016-12-31 09:16] LABS: ALBUMIN 3.3 g/dl (3.4-5.0); AMYLASE 55 U/L (25-115); ANION GAP 10 (8-16); BILIRUBIN,DIRECT 0.2 mg/dL (0.0-0.2); BILIRUBIN,TOTAL 0.6 mg/dL (0.2-1.0); C-REACTIVE PROTEIN 1.9 MG/DL (0.00-0.3); CALCIUM 8.4 mg/dL (8.5-10.1); CO2 26 mmol/L (21-32); CREATININE 0.7 mg/dL (0.55-1.02); GLUCOSE,RANDOM 144 mg/dL (74-106); MAGNESIUM 2.1 mg/dL (1.8-2.4); SGOT/AST 39 U/L (15-37); SGPT/ALT 64 U/L (12-78); TOT PROT 6.5 g/dl (6.4-8.2)
[2016-12-31 09:17] LABS: ALK PHOS 203 U/L (45-117); PHOSPHOROUS 3.4 mg/dL (2.5-4.9)
[2016-12-31 09:41] LABS: INR 1.13 (0.82-1.09); PROTHROMBIN TIME (PATIENT) 12.5 SEC (9.98-11.88)
[2016-12-31] MEDS ORDERED: PT OWN MED DRAWER 7, Y5N ONE (09:42)
[2016-12-31] MEDS: SERTRALINE HCL 50 MG TABLET (FP) PO SCH (09:45)
[2016-12-31] MEDS: RANITIDINE HCL 150 MG TABLET (FP) PO SCH ×2 (09:45→21:52)
[2016-12-31] MEDS: LISINOPRIL 20 MG TABLET (FP) PO SCH (09:45)
[2016-12-31] MEDS: CEFTRIAXONE 50 ML IVPB SCH (09:46)
--- NOTE | 2016-12-31 11:31 | PN ---
GI Progress Note Subjective: No acute events No abdominal pain No N/V - Objective Vital Signs: Vital Signs Temperature 98.6 F 12/31/16 06:00 Pulse Rate 72 12/31/16 06:00 Respiratory Rate 20 12/31/16 06:00 Blood Pressure 132/69 12/31/16 06:00 O2 Sat by Pulse Oximetry (%) 96 12/30/16 22:00 Constitutional: Calm Eyes: No: Sclera Icterus Cardiovascular: Yes: Regular Rate and Rhythm, Murmur (2/6 systolic murmur) Respiratory: Yes: CTA Bilaterally Gastrointestinal Inspection: No: Distention ...Auscultate: Yes: Normoactive Bowel Sounds ...Palpate: No: Tenderness Edema: No Neurological: Yes: Alert, Oriented Labs: CBC, BMP 12/31/16 08:00 12/31/16 08:00 INR, PTT INR 1.13 (0.82-1.09) 12/31/16 08:00 Hepatic Panel Total Bilirubin 0.6 mg/dL (0.2-1.0) D 12/31/16 08:00 Direct Bilirubin 0.2 mg/dL (0.0-0.2) D 12/31/16 08:00 AST 39 U/L (15-37) H D 12/31/16 08:00 ALT 64 U/L (12-78) D 12/31/16 08:00 Alkaline Phosphatase 203 U/L (45-117) H 12/31/16 08:00 Albumin 3.3 g/dl (3.4-5.0) L 12/31/16 08:00 Problem List - Problems (1) Gallstone pancreatitis Assessment/Plan: Currently asymptomatic, toleraitng clears Recurrent biliary pancreatitis due to passage of another gallstone into the CBD. From MRCP results and improving LFTs it appears as though the stone has passed spontaneously so plans for ERCP have been cancelled for now. She will need a cholecystectomy as soon as surgically feasible as she is likely to pass more stones. Surgical consultation is pending. Continue antibiotics Continue clear liquids Dr. Wilburn resumes coverage 01/02/17 Code(s): K85.10 - BILIARY ACUTE PANCREATITIS WITHOUT NECROSIS OR INFECTION
[2016-12-31] MEDS: POLYETHYLENE GLYCOL 3350 119 GM BTL PO SCH (11:46)
--- NOTE | 2016-12-31 12:42 | PN ---
Physical Exam: SUBJECTIVE: Patient seen and examined Patient resting in bed NAD. No acute events. afebrile and hemodynamically stable. Denies abd pain, n/v. Had normal NBNB BM yesterday. Her abdomen is distended but she says this is her baseline, its mildly diffusely sore. Denies f /c, chest pain, sob, loc, dizziness, dysuria. OBJECTIVE: Vital Signs Period Temp Pulse Resp BP Sys/Arita Pulse Ox Last 24 Hr 98.3 F-98.6 F 65-72 20-20 113-132/67-74 96 GENERAL: The patient is awake, alert, and fully oriented, in no acute distress. HEAD: Normal with no signs of trauma. EYES: PERRL, extraocular movements intact, sclera anicteric, conjunctiva clear. No ptosis. ENT: moist mucous membranes. NECK: supple. LUNGS: mild bibasilar crackles HEART: Regular rate and rhythm, S1, S2 grade 2 systolic ejection murmur ABDOMEN: Soft, mildly diffusely tender, moderately distended, hyperactive bowel sounds, no guarding, no rebound, no hepatosplenomegaly, no masses. EXTREMITIES: 2+ pulses, warm, well-perfused, no edema. NEUROLOGICAL: Cranial nerves II through XII grossly intact. Normal speech, gait not observed. PSYCH: Normal mood, normal affect. SKIN: Warm, dry Laboratory Results - last 24 hr 12/30/16 12/30/16 12/31/16 12:32 17:09 06:21 WBC RBC Hgb Hct MCV MCHC RDW Plt Count MPV Neutrophils % Lymphocytes % Monocytes % Eosinophils % Basophils % INR Sodium Potassium Chloride Carbon Dioxide Anion Gap BUN Creatinine Creat Clearance w eGFR POC Glucometer 117 140 109 Random Glucose Calcium Phosphorus Magnesium Total Bilirubin Direct Bilirubin AST ALT Alkaline Phosphatase C-Reactive Protein Total Protein Albumin Total Amylase Lipase Blood Type Antibody Screen 12/31/16 12/31/16 12/31/16 08:00 08:00 08:00 WBC 5.6 RBC 4.30 Hgb 12.8 Hct 38.1 MCV 88.6 MCHC 33.7 RDW 14.9 Plt Count 241 MPV 7.1 L Neutrophils % 68.6 Lymphocytes % 21.6 Monocytes % 6.9 Eosinophils % 2.1 Basophils % 0.8 INR 1.13 Sodium 144 Potassium 3.6 Chloride 108 H Carbon Dioxide 26 Anion Gap 10 BUN 5 L D Creatinine 0.7 Creat Clearance w eGFR > 60 POC Glucometer Random Glucose 144 H Calcium 8.4 L Phosphorus 3.4 Magnesium 2.1 Total Bilirubin 0.6 D Direct Bilirubin 0.2 D AST 39 H D ALT 64 D Alkaline Phosphatase 203 H C-Reactive Protein 1.9 H Total Protein 6.5 Albumin 3.3 L Total Amylase 55 Lipase 267 Blood Type Antibody Screen 12/31/16 12/31/16 12/31/16 08:00 08:00 11:43 WBC 5.5 RBC 4.32 Hgb 12.8 Hct 38.2 MCV 88.5 MCHC 33.6 RDW 14.7 Plt Count 242 MPV 7.1 L Neutrophils % Lymphocytes % Monocytes % Eosinophils % Basophils % INR Sodium Potassium Chloride Carbon Dioxide Anion Gap BUN Creatinine Creat Clearance w eGFR POC Glucometer 124 Random Glucose Calcium Phosphorus Magnesium Total Bilirubin Direct Bilirubin AST ALT Alkaline Phosphatase C-Reactive Protein Total Protein Albumin Total Amylase Lipase Blood Type A POSITIVE Antibody Screen Negative Active Medications Generic Name Dose Route Start Last Admin Trade Name Freq PRN Reason Stop Dose Admin Heparin Sodium (Porcine) 5,000 unit 12/30/16 06:00 12/31/16 06:22 Heparin - SQ 5,000 unit TID KARLA Administration Ceftriaxone Sodium 50 mls @ 100 mls/hr 12/30/16 16:45 12/31/16 09:46 Rocephin 1gm Ivpb (Pre-Docked) IVPB 100 mls/hr DAILY KARLA Administration Metronidazole 50 mls @ 50 mls/hr 12/30/16 18:00 12/31/16 10:50 Flagyl 250mg Premixed Ivpb - IVPB 50 mls/hr Q8H-IV KARLA Administration Insulin Aspart 1 vial 12/30/16 16:30 12/31/16 11:44 Novolog Vial Sliding Scale - SQ Not Given TIDAC [facility] Protocol Lisinopril 20 mg 12/30/16 11:00 12/31/16 09:45 Prinivil PO 20 mg DAILY KARLA Administration Polyethylene Glycol 17 gm 12/31/16 11:30 12/31/16 11:46 Miralax (For Daily Use) - PO 17 gm DAILY KARLA Administration Ranitidine HCl 150 mg 12/30/16 22:00 12/31/16 09:45 Zantac - PO 150 mg BID KARLA Administration Sertraline HCl 100 mg 12/30/16 11:00 12/31/16 09:45 Zoloft - PO 100 mg DAILY KARLA Administration ASSESSMENT/PLAN: Patient is a 71 year old female with significant past medical history of Hypertension, Hyperlipidemia, Diabetes Mellitus, Renal colic s/p lithotripsy , Abdominal hernia, Cholelithiasis presented with severe epigastric pain. Abd CT: cholelithiasis, narrow GB fundus. Pancreas wnl GB US: unchanged from prior, stones, mild extrahepatic tree dil Biliary colic with mild Pancreatitis -intermittent pain consistent with passing multiple stones vs GB jennifer against a stone, now resolved -stone passed -recurrent from 12/23/16 -missed outpatient ERCP -imaging appreciated -Lipase 3700, higher than last admission -transaminitis trending down -urine urobilinogen 2+ -GI, Surgery consult -symptomatic resolution, tolerating clears -can stop fluids -cholecystectomy Monday -preop TTE unremarkable -pre op blood work done -pre op risk assessment: low risk for intermediate risk surgery -monday: NPO after midnight, hold hep on sun night, hold ASA now. -advance to soft diet Cholecystitis -management as above Abdominal distention -with hyperechoic bowel sounds -suspect fecal impaction -KUB -miralax Diabetes -A1C 6.3 -BGM -Insulin sliding scale HTN -Lisinopril 20mg d Hyperlipidemia -hold simvastatin 20mg PO HS FEN IV NS@75 lytes stable soft diet PPX: Heparin 5000 IU sq Famotidine Dispo: Med-Surg Problem List - Problems (1) Cholecystitis with cholelithiasis Code(s): K80.10 - CALCULUS OF GALLBLADDER W CHRONIC CHOLECYST W/O OBSTRUCTION Qualifiers: Cholelithiasis location: gallbladder and bile duct Cholecystitis acuity : acute Biliary obstruction: without biliary obstruction Qualified Code( s): K80.62 - Calculus of gallbladder and bile duct with acute cholecystitis without obstruction (2) Choledocholithiasis Code(s): K80.50 - CALCULUS OF BILE DUCT W/O CHOLANGITIS OR CHOLECYST W/O OBST (3) Diabetes type 2, controlled Code(s): E11.9 - TYPE 2 DIABETES MELLITUS WITHOUT COMPLICATIONS (4) Gallstone pancreatitis Code(s): K85.10 - BILIARY ACUTE PANCREATITIS WITHOUT NECROSIS OR INFECTION (5) HLD (hyperlipidemia) Code(s): E78.5 - HYPERLIPIDEMIA, UNSPECIFIED (6) Hypertension Code(s): I10 - ESSENTIAL (PRIMARY) HYPERTENSION (7) Renal calculi Code(s): N20.0 - CALCULUS OF KIDNEY (8) DVT prophylaxis Code(s): AKM8087 - (9) Diabetes mellitus Code(s): E11.9 - TYPE 2 DIABETES MELLITUS WITHOUT COMPLICATIONS Qualifiers: Diabetes mellitus type: type 2 Diabetes mellitus complication status: with hyperglycemia Diabetes mellitus terminal worker insulin use: without terminal worker use Qualified Code(s): E11.65 - Type 2 diabetes mellitus with hyperglycemia; Z79.4 - retirement (current) use of insulin (10) Elevated liver enzymes Code(s): R74.8 - ABNORMAL LEVELS OF OTHER SERUM ENZYMES Visit type - Emergency Visit Emergency Visit: Yes ED Registration Date: 12/30/16 Care time: The patient presented to the Emergency Department on the above date and was hospitalized for further evaluation of their emergent condition. - New Patient This patient is new to me today: No - Critical Care Critical Care patient: No - Discharge Referral Referred to [facility] Med P.C.: No
--- NOTE | 2016-12-31 13:02 | PN ---
Teaching Attending Note Name of Resident: Paulina Faustin ATTENDING PHYSICIAN STATEMENT I saw and evaluated the patient. I reviewed the resident's note and discussed the case with the resident. I agree with the resident's findings and plan as documented. SUBJECTIVE: no fever or chills , no abd pain , no N/V. OBJECTIVE: NAd CV: RRR, 2/6 SM at RUSB. Lungs: CTAB Abd: soft, ND, TTP in epigastric area, no rebound tenderness or guarding , Fregoso's neg . Ext: no edema ASSESSMENT AND PLAN: 71 y/o lady with h/o Biliary colic on recent admission with cholelithiasis , HTN , HLP , DM , who presented with Abd pain , was found to have elevated lipase and gall stones 1- Abd pain: due to biliary colic with transient pancreatitis . Now stone has passed . - plan for CCY on Monday - cont Abx - Hold asa for Sx 2- DM : hold metformin and cont SSI 3- HTN: resume lisinopril 4- Depression : resume sertraline 5- pyuria : has no sx , but she is diabetic. follow urine cx DVT px
[2016-12-31] MEDS ORDERED: BISACODYL 10 MG SUPP.RECT RC ONE (16:34)
[2017-01-01] MEDS: METRONIDAZOLE PREMIXED IVPB 50 ML IVPB SCH ×3 (01:39→17:39)
[2017-01-01] MEDS: HEPARIN NA (PORCINE) 5,000 UNITS/ML 1ML VIAL SQ SCH ×3 (06:12→21:14)
[2017-01-01] MEDS: INSULIN SLIDING SCALE (NOVOLOG) 1 VIAL SQ SCH ×3 (06:12→17:39)
[2017-01-01 07:37] LABS: MCH 30.2 pg (25.7-33.7); MCHC 34.3 g/dl (32.0-36.0); MEAN CELL VOLUME 88.2 fl (80-96); MEAN PLT VOLUME 7.2 fl (7.5-11.1); PLATELET COUNT 252 K/MM3 (134-434); RDW 14.5 % (11.6-15.6); WHITE BLOOD COUNT 5.7 K/mm3 (4.0-10.0)
[2017-01-01 07:59] LABS: ALBUMIN 3.4 g/dl (3.4-5.0); ANION GAP 12 (8-16); CALCIUM 8.5 mg/dL (8.5-10.1); CO2 26 mmol/L (21-32); GLUCOSE,RANDOM 118 mg/dL (74-106)
[2017-01-01 08:27] LABS: ALK PHOS 187 U/L (45-117); BILIRUBIN,TOTAL 0.7 mg/dL (0.2-1.0); CREATININE 0.6 mg/dL (0.55-1.02); SGOT/AST 30 U/L (15-37); SGPT/ALT 53 U/L (12-78); TOT PROT 6.7 g/dl (6.4-8.2)
--- NOTE | 2017-01-01 08:50 | PN ---
Progress Note (short form) - Note Progress Note: Subjective: no fever or chills , no abd apin , had 3 loose BMs yesterday on miralax. Feels her abd is full of gas Objective: Vital Signs: Last Vital Signs Temp Pulse Resp BP Pulse Ox 98.4 F 70 20 134/70 95 01/01/17 06:00 01/01/17 06:00 01/01/17 06:00 01/01/17 06:00 12/31/16 21:00 Laboratory Results - last 24 hr 12/31/16 12/31/16 12/31/16 08:00 08:00 08:00 WBC 5.6 RBC 4.30 Hgb 12.8 Hct 38.1 MCV 88.6 MCHC 33.7 RDW 14.9 Plt Count 241 MPV 7.1 L Neutrophils % 68.6 Lymphocytes % 21.6 Monocytes % 6.9 Eosinophils % 2.1 Basophils % 0.8 INR 1.13 Sodium 144 Potassium 3.6 Chloride 108 H Carbon Dioxide 26 Anion Gap 10 BUN 5 L D Creatinine 0.7 Creat Clearance w eGFR > 60 POC Glucometer Random Glucose 144 H Calcium 8.4 L Phosphorus 3.4 Magnesium 2.1 Total Bilirubin 0.6 D Direct Bilirubin 0.2 D AST 39 H D ALT 64 D Alkaline Phosphatase 203 H C-Reactive Protein 1.9 H Total Protein 6.5 Albumin 3.3 L Total Amylase 55 Lipase 267 Vitamin B12 Blood Type Antibody Screen 12/31/16 12/31/16 12/31/16 08:00 08:00 11:43 WBC 5.5 RBC 4.32 Hgb 12.8 Hct 38.2 MCV 88.5 MCHC 33.6 RDW 14.7 Plt Count 242 MPV 7.1 L Neutrophils % Lymphocytes % Monocytes % Eosinophils % Basophils % INR Sodium Potassium Chloride Carbon Dioxide Anion Gap BUN Creatinine Creat Clearance w eGFR POC Glucometer 124 Random Glucose Calcium Phosphorus Magnesium Total Bilirubin Direct Bilirubin AST ALT Alkaline Phosphatase C-Reactive Protein Total Protein Albumin Total Amylase Lipase Vitamin B12 Blood Type A POSITIVE Antibody Screen Negative 12/31/16 01/01/17 01/01/17 16:41 06:04 06:15 WBC 5.7 RBC 4.33 Hgb 13.1 Hct 38.1 MCV 88.2 MCHC 34.3 RDW 14.5 Plt Count 252 MPV 7.2 L Neutrophils % Lymphocytes % Monocytes % Eosinophils % Basophils % INR Sodium Potassium Chloride Carbon Dioxide Anion Gap BUN Creatinine Creat Clearance w eGFR POC Glucometer 149 110 Random Glucose Calcium Phosphorus Magnesium Total Bilirubin Direct Bilirubin AST ALT Alkaline Phosphatase C-Reactive Protein Total Protein Albumin Total Amylase Lipase Vitamin B12 Blood Type Antibody Screen 01/01/17 06:15 WBC RBC Hgb Hct MCV MCHC RDW Plt Count MPV Neutrophils % Lymphocytes % Monocytes % Eosinophils % Basophils % INR Sodium 145 Potassium 3.4 L Chloride 107 Carbon Dioxide 26 Anion Gap 12 BUN 3 L D Creatinine 0.6 Creat Clearance w eGFR > 60 POC Glucometer Random Glucose 118 H Calcium 8.5 Phosphorus Magnesium Total Bilirubin 0.7 Direct Bilirubin AST 30 D ALT 53 Alkaline Phosphatase 187 H C-Reactive Protein Total Protein 6.7 Albumin 3.4 Total Amylase Lipase Vitamin B12 597 Blood Type Antibody Screen Physical Exam: NAd CV: RRR, 2/6 SM at RUSB. Lungs: CTAB Abd: soft, distended , TTP in RLQ , no rebound tenderness or guarding , Fregoso' s neg . Tympanic . hyperactive BS . Ext: no edema Rectal: nl hair distribution. no stool felt in rectum, no masses or hemorrhoids . no tenderness with exam ASSESSMENT AND PLAN: 71 y/o lady with h/o Biliary colic on recent admission with cholelithiasis , HTN , HLP , DM , who presented with Abd pain , was found to have elevated lipase and gall stones 1- Abd pain: due to biliary colic with transient pancreatitis . Now stone has passed . - Abd is distended , and tympanic , with bowel dilation on Xray. possible ileus , but BS are hyperactive which suggest partial SBO. will repeat KUB today and will d/w Surgery -plan for CCY on Monday - make NPO after MN - cont Abx , will dc after sx - Hold asa for Sx - hold heparin after MN 2- DM : hold metformin and cont SSI 3- HTN: lisinopril 4- hypokalemia: replete 5- pyuria : has no sx , but she is diabetic. follow urine cx ( sent before abx were given ) DVT px Visit type - Emergency Visit Emergency Visit: Yes ED Registration Date: 12/30/16 Care time: The patient presented to the Emergency Department on the above date and was hospitalized for further evaluation of their emergent condition. - New Patient This patient is new to me today: No - Critical Care Critical Care patient: No
[2017-01-01] MEDS ORDERED: POTASSIUM CHLORIDE TABS 20 MEQ TABLET.ER (FP) PO ONE (09:15)
[2017-01-01] MEDS ORDERED: PT OWN MED DRAWER 7, Y5N ONE ×3 (09:19→17:35)
[2017-01-01] MEDS: LISINOPRIL 20 MG TABLET (FP) PO SCH (09:22)
[2017-01-01] MEDS: SERTRALINE HCL 50 MG TABLET (FP) PO SCH (09:22)
[2017-01-01] MEDS: POLYETHYLENE GLYCOL 3350 119 GM BTL PO SCH (09:23)
[2017-01-01] MEDS: CEFTRIAXONE 50 ML IVPB SCH (09:23)
[2017-01-01] MEDS: RANITIDINE HCL 150 MG TABLET (FP) PO SCH (09:24)
--- NOTE | 2017-01-01 10:21 | PN ---
Progress Note (short form) - Note Progress Note: Attending Surgeon Patient seen and evaluated; chart reviewed; patient well known to me from previous admission w/gallstone pancreatitis and now recurrence which again has responded to conservative tx. She has no c/o today e/f "gas"; she is getting Miralax; she is moving her bowels and eating.She had an AXR which was unremarkable. O/E VSS AF abdomen soft/slightly distended and tympanitic; no tenderness; o/w negative. labs reviewed; w/u to date reviewed. IMP: gallstone pancreatitis; recurrent; resolved PLAN: Lap laureano possible open 01/02/17; r/b/t d/w her; conversion to open procedure discussed as well as procedures for possible retained stones etc.; she is amenable to surgery as discussed Bj Ruiz MD FACS
--- NOTE | 2017-01-01 12:45 | PN ---
GI Progress Note Subjective: No diarrhea No abdominal pain No nausea/vomiting - Objective Vital Signs: Vital Signs Temperature 98.4 F 01/01/17 06:00 Pulse Rate 70 01/01/17 06:00 Respiratory Rate 20 01/01/17 06:00 Blood Pressure 134/70 01/01/17 06:00 O2 Sat by Pulse Oximetry (%) 95 12/31/16 21:00 Constitutional: Calm Eyes: No: Sclera Icterus Cardiovascular: Yes: Regular Rate and Rhythm, Murmur Respiratory: Yes: CTA Bilaterally Gastrointestinal Inspection: Yes: Distention (softyly distended (not much difference from yesterday)) ...Auscultate: Yes: Hyperactive Bowel Sounds ...Palpate: No: Tenderness ...Percussion: Yes: Tympanitic (mild tympany) Edema: No Labs: CBC, BMP 01/01/17 06:15 01/01/17 06:15 INR, PTT INR 1.13 (0.82-1.09) 12/31/16 08:00 - ....Imaging X-ray: Report Reviewed (air in stomach and colon. No distended small bowel loops ) Problem List - Problems (1) Gallstone pancreatitis Assessment/Plan: For Cholecystectomy tomorrow Code(s): K85.10 - BILIARY ACUTE PANCREATITIS WITHOUT NECROSIS OR INFECTION (2) Hyperactive bowel sounds Assessment/Plan: ? medication related Stopped Zantac and miralax Check Stool for C. Diff if patient has diarrhea Dr. Wilburn resumes coverage 01/02 Code(s): R19.12 - HYPERACTIVE BOWEL SOUNDS
[2017-01-02] MEDS: METRONIDAZOLE PREMIXED IVPB 50 ML IVPB SCH ×3 (01:45→19:07)
[2017-01-02] MEDS: INSULIN SLIDING SCALE (NOVOLOG) 1 VIAL SQ SCH ×2 (06:02→11:29)
[2017-01-02 07:55] LABS: CALCIUM 8.8 mg/dL (8.5-10.1)
[2017-01-02 08:01] LABS: ALBUMIN 3.8 g/dl (3.4-5.0); ALK PHOS 183 U/L (45-117); ANION GAP 11 (8-16); BILIRUBIN,TOTAL 0.6 mg/dL (0.2-1.0); CO2 27 mmol/L (21-32); CREATININE 0.7 mg/dL (0.55-1.02); GLUCOSE,RANDOM 108 mg/dL (74-106); MAGNESIUM 2.3 mg/dL (1.8-2.4); PHOSPHOROUS 3.3 mg/dL (2.5-4.9); SGOT/AST 30 U/L (15-37); SGPT/ALT 46 U/L (12-78); TOT PROT 7.3 g/dl (6.4-8.2)
[2017-01-02] MEDS ORDERED: PT OWN MED DRAWER 7, Y5N ONE ×2 (09:38→18:40)
[2017-01-02] MEDS: SERTRALINE HCL 50 MG TABLET (FP) PO SCH (09:56)
[2017-01-02] MEDS: LISINOPRIL 20 MG TABLET (FP) PO SCH (09:56)
[2017-01-02] MEDS: CEFTRIAXONE 50 ML IVPB SCH (11:10)
[2017-01-02] MEDS ORDERED: PROPOFOL 20 ML ONE (13:00)
[2017-01-02] MEDS ORDERED: SUCCINYLCHOLINE CHLORIDE 200 MG/10 ML VIAL ONE (13:01)
[2017-01-02] MEDS ORDERED: BUPIVACAINE HCL/PF 0.5% (5MG/ML) 10 ML VIAL ONE (13:01)
[2017-01-02] MEDS ORDERED: MIDAZOLAM HCL 2 MG/2 ML SINGLE DOSE VIAL ONE (13:01)
[2017-01-02] MEDS ORDERED: LIDOCAINE HCL/PF 2% SDV 5ML VIAL ONE (13:02)
[2017-01-02] MEDS ORDERED: ROCURONIUM BROMIDE 50 MG/5 ML VIAL ONE ×2 (13:03→14:24)
[2017-01-02] MEDS ORDERED: DEXAMETHASONE SOD PHOSPHATE 4 MG/1 ML VIAL ONE (13:03)
--- NOTE | 2017-01-02 13:58 | PN ---
Physical Exam: SUBJECTIVE: Patient seen and examined Patient resting in bed NAD. No acute events overnight. afebrile and hemodynamically stable. states that she has loose stools, 1-2 per day, bobbloody , yellow. feels "gassy" . Denies abd pain, n/v. Her abdomen is distended but she says this is her baseline. Denies f/c, chest pain, sob, loc, dizziness, dysuria. OBJECTIVE: Vital Signs Period Temp Pulse Resp BP Sys/Arita Pulse Ox Last 24 Hr 97.3 F-98.7 F 63-69 18-20 130-154/63-80 95-97 GENERAL: The patient is awake, alert, and fully oriented, in no acute distress. HEAD: Normal with no signs of trauma. EYES: PERRL, extraocular movements intact, sclera anicteric, conjunctiva clear. No ptosis. ENT: moist mucous membranes. NECK: supple. LUNGS: mild bibasilar crackles HEART: Regular rate and rhythm, S1, S2 grade 2 systolic ejection murmur ABDOMEN: Soft, nontender, moderately distended, hyperactive bowel sounds, no guarding, no rebound, no hepatosplenomegaly, no masses. EXTREMITIES: 2+ pulses, warm, well-perfused, no edema. NEUROLOGICAL: Cranial nerves II through XII grossly intact. Normal speech, gait not observed. PSYCH: Normal mood, normal affect. SKIN: Warm, dry Laboratory Results - last 24 hr 01/01/17 01/01/17 01/02/17 17:33 21:33 05:39 Sodium Potassium Chloride Carbon Dioxide Anion Gap BUN Creatinine Creat Clearance w eGFR POC Glucometer 110 83 109 Random Glucose Calcium Phosphorus Magnesium Total Bilirubin AST ALT Alkaline Phosphatase Total Protein Albumin 01/02/17 01/02/17 06:30 11:28 Sodium 143 Potassium 3.8 Chloride 105 Carbon Dioxide 27 Anion Gap 11 BUN 5 L D Creatinine 0.7 Creat Clearance w eGFR > 60 POC Glucometer 105 Random Glucose 108 H Calcium 8.8 Phosphorus 3.3 Magnesium 2.3 Total Bilirubin 0.6 AST 30 ALT 46 Alkaline Phosphatase 183 H Total Protein 7.3 Albumin 3.8 Active Medications Generic Name Dose Route Start Last Admin Trade Name Freq PRN Reason Stop Dose Admin Heparin Sodium (Porcine) 5,000 unit 12/30/16 06:00 01/01/17 21:14 Heparin - SQ 5,000 unit TID KARLA Administration Ceftriaxone Sodium 50 mls @ 100 mls/hr 12/30/16 16:45 01/02/17 11:10 Rocephin 1gm Ivpb (Pre-Docked) IVPB 100 mls/hr DAILY KARLA Administration Metronidazole 50 mls @ 50 mls/hr 12/30/16 18:00 01/02/17 09:56 Flagyl 250mg Premixed Ivpb - IVPB 50 mls/hr Q8H-IV KARLA Administration Insulin Aspart 1 vial 12/30/16 16:30 01/02/17 11:29 Novolog Vial Sliding Scale - SQ Not Given [facility] Protocol Lisinopril 20 mg 12/30/16 11:00 01/02/17 09:56 Prinivil PO Not Given DAILY KARLA Sertraline HCl 100 mg 12/30/16 11:00 01/02/17 09:56 Zoloft - PO Not Given DAILY KARLA ASSESSMENT/PLAN: Patient is a 71 year old female with significant past medical history of Hypertension, Hyperlipidemia, Diabetes Mellitus, Renal colic s/p lithotripsy , Abdominal hernia, Cholelithiasis presented with severe epigastric pain. Abd CT: cholelithiasis, narrow GB fundus. Pancreas wnl GB US: unchanged from prior, stones, mild extrahepatic tree dil Biliary colic with mild Pancreatitis -intermittent pain consistent with passing multiple stones vs GB jennifer against a stone, now resolved -stone passed -recurrent from 12/23/16 -missed outpatient ERCP -imaging appreciated -Lipase 3700, higher than last admission -transaminitis resolved -urine urobilinogen 2+ -GI, Surgery consult -symptomatic resolution, tolerating soft diet -cholecystectomy this noon -preop TTE unremarkable -pre op blood work done -pre op risk assessment: low risk for intermediate risk surgery -flaqyl, rocephin day 4 Cholecystitis -management as above Abdominal distention -with hyperechoic bowel sounds -suspect fecal impaction -KUB x 2 mild distention -many BM's, loose Diabetes -A1C 6.3 -BGM -Insulin sliding scale has not required coverage HTN -Lisinopril 20mg d Hyperlipidemia -hold simvastatin 20mg PO HS, will restsrt on d/c FEN no ivf lytes stable npo before dejah PPX: hold Heparin 5000 IU sq for dejah Famotidine Dispo: Med-Surg Problem List - Problems (1) Cholecystitis with cholelithiasis Code(s): K80.10 - CALCULUS OF GALLBLADDER W CHRONIC CHOLECYST W/O OBSTRUCTION Qualifiers: Cholelithiasis location: gallbladder and bile duct Cholecystitis acuity : acute Biliary obstruction: without biliary obstruction Qualified Code( s): K80.62 - Calculus of gallbladder and bile duct with acute cholecystitis without obstruction (2) Choledocholithiasis Code(s): K80.50 - CALCULUS OF BILE DUCT W/O CHOLANGITIS OR CHOLECYST W/O OBST (3) Diabetes type 2, controlled Code(s): E11.9 - TYPE 2 DIABETES MELLITUS WITHOUT COMPLICATIONS (4) Gallstone pancreatitis Code(s): K85.10 - BILIARY ACUTE PANCREATITIS WITHOUT NECROSIS OR INFECTION (5) HLD (hyperlipidemia) Code(s): E78.5 - HYPERLIPIDEMIA, UNSPECIFIED (6) Hypertension Code(s): I10 - ESSENTIAL (PRIMARY) HYPERTENSION (7) Renal calculi Code(s): N20.0 - CALCULUS OF KIDNEY (8) DVT prophylaxis Code(s): [id number] - (9) Diabetes mellitus Code(s): E11.9 - TYPE 2 DIABETES MELLITUS WITHOUT COMPLICATIONS Qualifiers: Diabetes mellitus type: type 2 Diabetes mellitus complication status: with hyperglycemia Diabetes mellitus shelter insulin use: without oysterman use Qualified Code(s): E11.65 - Type 2 diabetes mellitus with hyperglycemia; Z79.4 - snf (current) use of insulin (10) Elevated liver enzymes Code(s): R74.8 - ABNORMAL LEVELS OF OTHER SERUM ENZYMES Visit type - Emergency Visit Emergency Visit: Yes ED Registration Date: 12/30/16 Care time: The patient presented to the Emergency Department on the above date and was hospitalized for further evaluation of their emergent condition. - New Patient This patient is new to me today: No - Critical Care Critical Care patient: No - Discharge Referral Referred to [facility] Med P.C.: No
[2017-01-02] MEDS ORDERED: HYDROmorphone HCL/PF 1 MG/ML VIAL (FOR PYXIS CHARGING ONLY) ONE (14:28)
[2017-01-02] MEDS ORDERED: GLYCOPYRROLATE 0.2 MG/1 ML VIAL ONE ×2 (14:46→15:54)
--- NOTE | 2017-01-02 15:02 | PN ---
Teaching Attending Note Name of Resident: Paulina Faustin ATTENDING PHYSICIAN STATEMENT I saw and evaluated the patient. I reviewed the resident's note and discussed the case with the resident. I agree with the resident's findings and plan as documented. SUBJECTIVE: Abd feels gassy . cont to have BM . OBJECTIVE: NAd CV: RRR, 2/6 SM at RUSB. Lungs: CTAB Abd: soft, distended , TTP in RLQ , no rebound tenderness or guarding , Fregoso' s neg . Tympanic . hyperactive BS . Ext: no edema ASSESSMENT AND PLAN: 71 y/o lady with h/o Biliary colic on recent admission with cholelithiasis , HTN , HLP , DM , who presented with Abd pain , was found to have elevated lipase and gall stones 1- Abd pain: due to biliary colic with transient pancreatitis . Now stone has passed . - d/w Dr. Ruiz, for CCY today - cont Abx , will dc tomorrow 2- DM : hold metformin and cont SSI 3- HTN: lisinopril HLOC Dispo : will dc tomorrow
[2017-01-02] MEDS ORDERED: PHENYLEPHRINE HCL 10 MG/1 ML SINGLE DOSE VIAL ONE (15:31)
[2017-01-02] MEDS ORDERED: KETOROLAC TROMETHAMINE 30 MG/1 ML VIAL ONE (15:52)
[2017-01-02] MEDS ORDERED: NEOSTIGMINE METHYLSULFATE 0.5 MG/ML - 10 ML MDV ONE (15:54)
[2017-01-02] MEDS ORDERED: BUPIVACAINE HCL/PF 0.5% (5MG/ML) 10 ML VIAL IJ ONE ×2 (16:00)
--- NOTE | 2017-01-02 16:15 | OP ---
Operative Note - Note: Operative Date: 01/02/17 Pre-Operative Diagnosis: s/p gallstone pancreatitis/cholelithiasis Operation: lap laureano Findings: cholelithiasis; r/o carcinoma of the gallbladder Post-Operative Diagnosis: Same as Pre-op Surgeon: Bj Ruiz Retail Business Manager: Karlo Jang Anesthesia: General Specimens Removed: gallbladder and contents Estimated Blood Loss (mls): 50 Drains & Tubes with Location: MICHAEL 10 mm.
--- NOTE | 2017-01-02 16:17 | SURG ---
Surgery Bun Icer Note Bun Icer: Karlo Jang PA-C Date of Service: 01/02/17 Diagnosis: Gallstone pancreatitis/cholelithiasis Procedure: Laparoscopic cholecystectomy I was present for the entirety of the operative procedure. For further detail, please refer to operative report. Visit type - Case Type Case Type: ED Admission - Emergency Emergency Visit: Yes ED Registration Date: 12/30/16 Care time: The patient presented to the Emergency Department on the above date and was hospitalized for further evaluation of their emergent condition. - New patient This patient is new to me today: Yes Date on this admission: 01/02/17
[2017-01-02] MEDS ORDERED: ACETAMINOPHEN 1000 MG/100 ML VIAL (NON FORMULARY) IVPB ONE (16:19)
[2017-01-02] MEDS ORDERED: PROMETHAZINE HCL 25 MG/1 ML VIAL IVPUSH PRN (16:29)
[2017-01-02] MEDS ORDERED: LACTATED RINGERS SOLUTION 1,000 ML IV SCH (16:30)
[2017-01-02] MEDS ORDERED: ACETAMINOPHEN INJECTION 100 ML IVPB ONE (16:53)
[2017-01-02] MEDS: LACTATED RINGERS SOLUTION 1,000 ML IV SCH (18:10)
--- NOTE | 2017-01-02 18:22 | PN ---
GI Progress Note Subjective: GASTROENTEROLOGY JUST CAME BACK FROM SURGERY:LAP CHOLECYSECTOMY - Objective Vital Signs: Vital Signs Temperature 98.5 F 01/02/17 14:12 Pulse Rate 75 01/02/17 18:06 Respiratory Rate 20 01/02/17 18:06 Blood Pressure 143/72 01/02/17 18:06 O2 Sat by Pulse Oximetry (%) 96 01/02/17 18:06 Constitutional: Calm Eyes: Yes: Conjunctiva Clear HENT: Yes: WNL Cardiovascular: Yes: WNL Respiratory: Yes: WNL Gastrointestinal Inspection: Yes: Distention ...Auscultate: Yes: Hypoactive Bowel Sounds ...Palpate: Yes: Other (DRAIN AND FRESH WOUNDS) Extremities: Yes: WNL Neurological: Yes: WNL Labs: CBC, BMP 01/01/17 06:15 01/02/17 06:30 INR, PTT INR 1.13 (0.82-1.09) 12/31/16 08:00 Problem List - Problems (1) Gallstone pancreatitis Assessment/Plan: S/P SURGERY AWAIT PATH SURGICAL FOLLOW UP Code(s): K85.10 - BILIARY ACUTE PANCREATITIS WITHOUT NECROSIS OR INFECTION (2) Cholecystitis with cholelithiasis Code(s): K80.10 - CALCULUS OF GALLBLADDER W CHRONIC CHOLECYST W/O OBSTRUCTION Qualifiers: Cholelithiasis location: gallbladder and bile duct Cholecystitis acuity : acute Biliary obstruction: without biliary obstruction Qualified Code( s): K80.62 - Calculus of gallbladder and bile duct with acute cholecystitis without obstruction
[2017-01-02] MEDS: ONDANSETRON 4 MG/2 ML VIAL IVPB PRN (18:41)
[2017-01-02] MEDS: HYDROmorphone HCL CARPU-JECT 2 MG/1 ML DISP.SYRIN IVPB PRN (21:17)
[2017-01-02] MEDS: HEPARIN NA (PORCINE) 5,000 UNITS/ML 1ML VIAL SQ SCH (21:18)
[2017-01-03] MEDS: LACTATED RINGERS SOLUTION 1,000 ML IV SCH ×3 (01:58→22:58)
[2017-01-03] MEDS: METRONIDAZOLE PREMIXED IVPB 50 ML IVPB SCH ×2 (01:58→10:51)
[2017-01-03] MEDS: HYDROmorphone HCL CARPU-JECT 2 MG/1 ML DISP.SYRIN IVPB PRN ×2 (02:46→13:28)
[2017-01-03] MEDS: HEPARIN NA (PORCINE) 5,000 UNITS/ML 1ML VIAL SQ SCH ×3 (06:20→21:38)
[2017-01-03] MEDS: INSULIN SLIDING SCALE (NOVOLOG) 1 VIAL SQ SCH ×3 (06:20→17:17)
--- NOTE | 2017-01-03 07:58 | PN ---
Progress Note, Physician Chief Complaint: Pt pain controlled, no GA complaints. - Current Medication List Current Medications: Active Medications Heparin Sodium (Porcine) (Heparin -) 5,000 unit SQ TID [facility] Last Admin: 01/03/17 06:20 Dose: 5,000 unit Hydromorphone HCl (Dilaudid Injection -) 2 mg IVPB Q4H PRN PRN Reason: PAIN Last Admin: 01/03/17 02:46 Dose: 2 mg Lactated Ringer's (Lactated Ringers Solution) 1,000 mls @ 125 mls/hr IV ASDIR KARLA Last Admin: 01/03/17 01:58 Dose: 125 mls/hr Metronidazole (Flagyl 250mg Premixed Ivpb -) 50 mls @ 50 mls/hr IVPB Q8H-IV KARLA Last Admin: 01/03/17 01:58 Dose: 50 mls/hr Ceftriaxone Sodium (Rocephin 1gm Ivpb (Pre-Docked)) 50 mls @ 100 mls/hr IVPB DAILY [facility] Insulin Aspart (Novolog Vial Sliding Scale -) 1 vial SQ TIDAC [facility] PRN Reason: Protocol Last Admin: 01/03/17 06:20 Dose: Not Given Lisinopril (Prinivil) 20 mg PO DAILY [facility] Ondansetron HCl (Zofran Injection) 8 mg IVPB Q6H PRN PRN Reason: NAUSEA Last Admin: 01/02/17 18:41 Dose: 8 mg Sertraline HCl (Zoloft -) 100 mg PO DAILY [facility] - Objective Vital Signs: Vital Signs Temperature 98.0 F 01/03/17 07:47 Pulse Rate 63 01/03/17 07:47 Respiratory Rate 20 01/03/17 07:47 Blood Pressure 120/57 01/03/17 07:47 O2 Sat by Pulse Oximetry (%) 96 01/02/17 22:00 Constitutional: Yes: Well Nourished, No Distress, Calm Musculoskeletal: Yes: WNL Neurological: Yes: WNL, Alert, Oriented ...Motor Strength: WNL Labs: CBC, BMP 01/01/17 06:15 01/02/17 06:30 INR, PTT INR 1.13 (0.82-1.09) 12/31/16 08:00 Assessment/Plan POD#1 s/p laparoscopic cholecystectomy under GA. Doing well. D/C from anesthesia care.
[2017-01-03 08:42] LABS: MCH 30.1 pg (25.7-33.7); MCHC 33.8 g/dl (32.0-36.0); MEAN PLT VOLUME 7.3 fl (7.5-11.1); PLATELET COUNT 245 K/MM3 (134-434); RDW 14.5 % (11.6-15.6); WHITE BLOOD COUNT 10.8 K/mm3 (4.0-10.0)
--- NOTE | 2017-01-03 08:47 | PN ---
Progress Note (short form) - Note Progress Note: Surgery-Dr. Ruiz Patient seen and examined with Dr. Ruiz. Patient states she is feeling well, has some soreness, but pain is controlled. Patient is tolerating her diet without nausea or vomiting. Last Vital Signs Temp Pulse Resp BP Pulse Ox 98.0 F 63 20 120/57 96 01/03/17 07:47 01/03/17 07:47 01/03/17 07:47 01/03/17 07:47 01/02/17 22:00 Labs pending Drain output 30ml overnight Exam: Gen: NAD, pleasant and cooperative Abd: soft, minimal tenderness, MICHAEL drain in place with small amount serosanguineous drainage Problem List - Problems (1) Gallstone pancreatitis Code(s): K85.10 - BILIARY ACUTE PANCREATITIS WITHOUT NECROSIS OR INFECTION (2) Cholelithiasis Assessment/Plan: POD#1 s/p laparoscopic cholecystectomy Continue soft diet Continue MICHAEL drain, monitor output, likely remove tomorrow Pain control D/C abx Follow-up labs OOB, DVT prophylaxis Code(s): K80.20 - CALCULUS OF GALLBLADDER W/O CHOLECYSTITIS W/O OBSTRUCTION
[2017-01-03 09:31] LABS: CALCIUM 8.7 mg/dL (8.5-10.1); CREATININE 0.7 mg/dL (0.55-1.02)
[2017-01-03] MEDS ORDERED: CEFTRIAXONE 50 ML IVPB SCH (10:00)
[2017-01-03] MEDS ORDERED: PT OWN MED DRAWER 7, Y5N ONE (10:35)
[2017-01-03] MEDS: SERTRALINE HCL 50 MG TABLET (FP) PO SCH (10:50)
[2017-01-03] MEDS: LISINOPRIL 20 MG TABLET (FP) PO SCH ×2 (10:51→14:07)
--- NOTE | 2017-01-03 13:43 | PN ---
Physical Exam: SUBJECTIVE: Patient seen and examined Patient resting in bed comfortably NAD. Day 1 s/p uneventful lap laureano. MICHAEL drain output 15 cc sero sanguineous fluid. Tolerating regular diet w/o N/V. Mild abdominal discomfort/soreness. + flatus, no BM yest. Urinating w/o issue. Denies f/c. OBJECTIVE: Vital Signs Period Temp Pulse Resp BP Sys/Arita Pulse Ox Last 24 Hr 97.7 F-98.5 F 60-75 16-20 105-163/49-92 96-100 GENERAL: The patient is awake, alert, and fully oriented, in no acute distress. HEAD: Normal with no signs of trauma. EYES: PERRL, extraocular movements intact, sclera anicteric, conjunctiva clear. No ptosis. ENT: moist mucous membranes. NECK: supple. LUNGS: mild bibasilar crackles HEART: Regular rate and rhythm, S1, S2 grade 2 systolic ejection murmur ABDOMEN: Soft, mildly tender, moderately distended, hypoactive bowel sounds, no guarding, no rebound, no hepatosplenomegaly, no masses. clean surgical incisions, MICHAEL in place RUQ EXTREMITIES: 2+ pulses, warm, well-perfused, no edema. NEUROLOGICAL: Cranial nerves II through XII grossly intact. Normal speech, gait not observed. PSYCH: Normal mood, normal affect. SKIN: Warm, dry Laboratory Results - last 24 hr 01/02/17 01/02/17 01/03/17 06:30 16:37 06:12 WBC RBC Hgb Hct MCV MCHC RDW Plt Count MPV Sodium Potassium Chloride Carbon Dioxide Anion Gap BUN Creatinine POC Glucometer 136 106 Random Glucose Calcium Phosphorus Magnesium Blood Type A POSITIVE 01/03/17 01/03/17 01/03/17 06:20 06:20 11:36 WBC 10.8 H D RBC 4.13 Hgb 12.4 Hct 36.7 MCV 89.0 MCHC 33.8 RDW 14.5 Plt Count 245 MPV 7.3 L Sodium 141 Potassium 4.0 Chloride 104 Carbon Dioxide 24 Anion Gap 13 BUN 11 D Creatinine 0.7 POC Glucometer 138 Random Glucose 108 H Calcium 8.7 Phosphorus 4.0 D Magnesium 2.0 Blood Type Active Medications Generic Name Dose Route Start Last Admin Trade Name Freq PRN Reason Stop Dose Admin Heparin Sodium (Porcine) 5,000 unit 01/02/17 22:00 01/03/17 06:20 Heparin - SQ 5,000 unit TID KARLA Administration Hydromorphone HCl 2 mg 01/02/17 16:22 01/03/17 13:28 Dilaudid Injection - IVPB 2 mg Q4H PRN Administration PAIN Lactated Ringer's 1,000 mls @ 75 mls/hr 01/03/17 13:39 Lactated Ringers Solution IV ASDIR [facility] Insulin Aspart 1 vial 01/03/17 07:00 01/03/17 11:37 Novolog Vial Sliding Scale - SQ Not Given TIDAC [facility] Protocol Lisinopril 20 mg 01/03/17 10:00 01/03/17 10:51 Prinivil PO Not Given DAILY [facility] Ondansetron HCl 8 mg 01/02/17 18:28 01/02/17 18:41 Zofran Injection IVPB 8 mg Q6H PRN Administration NAUSEA Sertraline HCl 100 mg 01/03/17 10:00 01/03/17 10:50 Zoloft - PO 100 mg DAILY KARLA Administration ASSESSMENT/PLAN: Patient is a 71 year old female with significant past medical history of Hypertension, Hyperlipidemia, Diabetes Mellitus, Renal colic s/p lithotripsy , Abdominal hernia, Cholelithiasis presented with severe epigastric pain. Abd CT: cholelithiasis, narrow GB fundus. Pancreas wnl GB US: unchanged from prior, stones, mild extrahepatic tree dil Biliary colic with mild Pancreatitis Day 1 s/p lap laureano -pancreatitis resolved -imaging appreciated -transaminitis resolved -GI, Surgery consult -tolerating regular diet +flatus -can stop Abx -MICHAEL draining 15 cc serosanguineous fluid -MICHAEL to come out before d/c -f/u pathology -PT Cholecystitis -management as above Abdominal distention -prior KUB x 2 mild distention -normal post op lap laureano, will reassess Diabetes -A1C 6.3 -BGM -Insulin sliding scale has not required coverage HTN -Lisinopril 20mg d Hyperlipidemia -hold simvastatin 20mg PO HS, will restsrt on d/c FEN LR @75 lytes stable Soft diet PPX: hold Heparin 5000 IU sq for dejah Famotidine Dispo: Med-Surg Problem List - Problems (1) Cholecystitis with cholelithiasis Code(s): K80.10 - CALCULUS OF GALLBLADDER W CHRONIC CHOLECYST W/O OBSTRUCTION Qualifiers: Cholelithiasis location: gallbladder and bile duct Cholecystitis acuity : acute Biliary obstruction: without biliary obstruction Qualified Code( s): K80.62 - Calculus of gallbladder and bile duct with acute cholecystitis without obstruction (2) Choledocholithiasis Code(s): K80.50 - CALCULUS OF BILE DUCT W/O CHOLANGITIS OR CHOLECYST W/O OBST (3) Diabetes type 2, controlled Code(s): E11.9 - TYPE 2 DIABETES MELLITUS WITHOUT COMPLICATIONS (4) Gallstone pancreatitis Code(s): K85.10 - BILIARY ACUTE PANCREATITIS WITHOUT NECROSIS OR INFECTION (5) HLD (hyperlipidemia) Code(s): E78.5 - HYPERLIPIDEMIA, UNSPECIFIED (6) Hypertension Code(s): I10 - ESSENTIAL (PRIMARY) HYPERTENSION (7) Renal calculi Code(s): N20.0 - CALCULUS OF KIDNEY (8) DVT prophylaxis Code(s): [id number] - (9) Diabetes mellitus Code(s): E11.9 - TYPE 2 DIABETES MELLITUS WITHOUT COMPLICATIONS Qualifiers: Diabetes mellitus type: type 2 Diabetes mellitus complication status: with hyperglycemia Diabetes mellitus intermediate project manager insulin use: without intermediate project manager use Qualified Code(s): E11.65 - Type 2 diabetes mellitus with hyperglycemia; Z79.4 - intermediate project manager (current) use of insulin (10) Elevated liver enzymes Code(s): R74.8 - ABNORMAL LEVELS OF OTHER SERUM ENZYMES Visit type - Emergency Visit Emergency Visit: Yes ED Registration Date: 12/30/16 Care time: The patient presented to the Emergency Department on the above date and was hospitalized for further evaluation of their emergent condition. - New Patient This patient is new to me today: No - Critical Care Critical Care patient: No - Discharge Referral Referred to [facility] Med P.C.: No
--- NOTE | 2017-01-03 18:28 | PN ---
GI Progress Note Subjective: GASTROENTEROLOGY TODAY IN NO PAIN, SEEN EATING DINNER, STATES HAD A LOT OF GAS, MICHAEL IN PLACE - Objective Vital Signs: Vital Signs Temperature 98.2 F 01/03/17 14:44 Pulse Rate 73 01/03/17 14:44 Respiratory Rate 20 01/03/17 14:44 Blood Pressure 114/59 01/03/17 14:44 O2 Sat by Pulse Oximetry (%) 94 L 01/03/17 11:00 Constitutional: No Distress, Calm Eyes: Yes: Conjunctiva Clear HENT: Yes: Normocephalic Cardiovascular: Yes: Regular Rate and Rhythm Respiratory: Yes: Regular Gastrointestinal Inspection: Yes: Scars, Other (OBESE) ...Auscultate: Yes: Normoactive Bowel Sounds ...Palpate: Yes: Tenderness (AT RUQ, DRAIN SITE, NO FLUCTULATION OR PUS, SEROSANGUINOUS FLUID IN DRAIN.) Extremities: Yes: WNL Labs: CBC, BMP 01/03/17 06:20 01/03/17 06:20 INR, PTT INR 1.13 (0.82-1.09) 12/31/16 08:00 Problem List - Problems (1) Gallstone pancreatitis Assessment/Plan: AWAIT PATH POST OP CARE PER SURGERY FOLLOW DRAIN OUTPUT (MINIMAL TODAY) Code(s): K85.10 - BILIARY ACUTE PANCREATITIS WITHOUT NECROSIS OR INFECTION (2) Cholecystitis with cholelithiasis Code(s): K80.10 - CALCULUS OF GALLBLADDER W CHRONIC CHOLECYST W/O OBSTRUCTION Qualifiers: Cholelithiasis location: gallbladder and bile duct Cholecystitis acuity : acute Biliary obstruction: without biliary obstruction Qualified Code( s): K80.62 - Calculus of gallbladder and bile duct with acute cholecystitis without obstruction
--- NOTE | 2017-01-03 19:01 | PN ---
Teaching Attending Note Name of Resident: Paulina Faustin ATTENDING PHYSICIAN STATEMENT I saw and evaluated the patient. I reviewed the resident's note and discussed the case with the resident. I agree with the resident's findings and plan as documented. SUBJECTIVE: no fever or chills, no abd apin . passed gas OBJECTIVE: NAD CV: RRR, 2/6 SM at RUSB. Lungs: CTAB Abd: soft, distended , TTP in RLQ , no rebound tenderness or guarding. NL BS. MICHAEL drain in RUQ with sero-sanguineous drainage Ext: no edema ASSESSMENT AND PLAN: 71 y/o lady with h/o Biliary colic on recent admission with cholelithiasis , HTN , HLP , DM , who presented with Abd pain , was found to have elevated lipase and gall stones 1- Abd pain: due to biliary colic with transient pancreatitis . Now s/p CCY POD 1. doing well , passed gas MICHAEL drain to be removed tomorrow path report pending dc abx 2- DM : hold metformin and cont SSI 3- HTN: lisinopril Dipso : possible dc tomorrow
--- NOTE | 2017-01-03 20:04 | OP ---
DATE OF OPERATION: 01/02/2017 PREOPERATIVE DIAGNOSIS: Cholelithiasis, status post gallstone pancreatitis. POSTOPERATIVE DIAGNOSIS: Cholelithiasis, status post gallstone pancreatitis. PROCEDURE: Laparoscopic cholecystectomy. SURGEON: Bj Ruiz MD ORDER TAKERS SUPERVISOR: COURTNEY Leggett ANESTHESIA: General. OPERATIVE FINDINGS: Cholelithiasis, adhesions of omentum to the gallbladder. The rest of the findings were unremarkable. PROCEDURE: The patient was placed on the operating table in supine position, and after the induction of general anesthesia, the patient's abdomen was prepped with ChloraPrep and draped in sterile fashion. Pneumoperitoneum was established above the umbilicus using a Veress needle to a pressure of 15 mmHg. A 5-mm port was subsequently placed and additional 5 mm lateral and a subxiphoid 12-mm port. Laparoscopy was carried out and the previously noted findings were observed. Adhesions of the omentum to the gallbladder were taken down using electrocautery. The gallbladder was then placed on cephalad and lateral traction and dissection begun in the triangle of Calot, where the peritoneum was opened using electrocautery and blunt dissection. The cystic duct was identified coursing from the neck of the gallbladder distally towards the common duct. It was dissected proximally and distally for length. The cystic artery was similarly identified and dissected and then a critical view of safety was taken. The cystic duct was milked proximally and then divided using the Endo Zachary after being clipped twice distally and twice proximally with large hemoclips. The artery was similarly clipped and divided. The gallbladder was then removed from the liver bed in a retrograde fashion using the electrocautery. Prior to removal from the edge of the liver, hemostasis was checked for and noted to be good. The gallbladder was then removed from the edge of the liver and placed in an EndoCatch and brought out through the subxiphoid port. Pneumoperitoneum was reestablished and bleeding from the edge of the liver was controlled using a combination of electrocautery and Surgicel. Copious irrigation was carried out until the effluent was clear, and then a 10-mm Usman-Reid drain was placed in the right hepatorenal fossa and brought out through one of the 5-mm ports and secured to the skin with 2-0 silk suture. Hemostasis was again verified and then all ports removed under laparoscopic vision without evidence of bleeding from the port sites. The pneumoperitoneum was evacuated and the defect in the subxiphoid fascia was closed with a single 0 Vicryl [id number] suture. All port sites were irrigated and then infiltrated with 0.5% Marcaine and the skin edges reapproximated with 4-0 Biosyn in a subcuticular fashion. Steri-Strips and band-aid dressings were placed. The drain was connected to a bulb suction device and the procedure terminated. At this point, the patient aroused from general anesthesia and transferred to the post-anesthesia care unit in stable condition, awake and alert. Estimated blood loss approximately 50 mL. Replacement was crystalloid. Drains: One 10-mm Usman-Reid. Specimen: Gallbladder and contents to Pathology. I, Bj Ruiz, was physically present in the operating room from the time the patient was placed on the operating table until she was transferred to the post-anesthesia care unit in my accompaniment. MD DESTINEE Ricketts/[id number]
[2017-01-03] MEDS ORDERED: morphine CARPU-JECT 2 MG/1 ML DISP.SYRIN IVPUSH PRN (21:43)
[2017-01-03] MEDS ORDERED: morphine CARPU-JECT 2 MG/1 ML DISP.SYRIN IVPB PRN (22:23)
[2017-01-04] MEDS: ONDANSETRON 4 MG/2 ML VIAL IVPB PRN (02:31)
[2017-01-04] MEDS: HYDROmorphone HCL CARPU-JECT 2 MG/1 ML DISP.SYRIN IVPB PRN (02:32)
[2017-01-04] MEDS: INSULIN SLIDING SCALE (NOVOLOG) 1 VIAL SQ SCH ×3 (06:19→17:27)
[2017-01-04] MEDS: HEPARIN NA (PORCINE) 5,000 UNITS/ML 1ML VIAL SQ SCH ×3 (06:20→21:44)
[2017-01-04 08:03] LABS: ANION GAP 10 (8-16); CALCIUM 8.1 mg/dL (8.5-10.1); CO2 29 mmol/L (21-32); CREATININE 0.9 mg/dL (0.55-1.02); GLUCOSE,RANDOM 120 mg/dL (74-106); PHOSPHOROUS 3.1 mg/dL (2.5-4.9); SGOT/AST 25 U/L (15-37); SGPT/ALT 32 U/L (12-78)
[2017-01-04 08:05] LABS: ALK PHOS 123 U/L (45-117); BILIRUBIN,TOTAL 0.5 mg/dL (0.2-1.0); TOT PROT 5.6 g/dl (6.4-8.2)
[2017-01-04 08:10] LABS: MCHC 33.3 g/dl (32.0-36.0); MEAN CELL VOLUME 90.1 fl (80-96); MEAN PLT VOLUME 7.4 fl (7.5-11.1); PLATELET COUNT 214 K/MM3 (134-434); RDW 14.9 % (11.6-15.6); WHITE BLOOD COUNT 7.9 K/mm3 (4.0-10.0)
[2017-01-04] MEDS ORDERED: oxyCODONE HCL 5 MG TABLET PO PRN (08:31)
[2017-01-04] MEDS ORDERED: PT OWN MED DRAWER 7, Y5N ONE (09:52)
[2017-01-04] MEDS: SERTRALINE HCL 50 MG TABLET (FP) PO SCH (10:16)
[2017-01-04] MEDS: LISINOPRIL 20 MG TABLET (FP) PO SCH (10:17)
[2017-01-04] MEDS ORDERED: ACETAMINOPHEN 325 MG TABLET (FP) PO PRN (13:45)
--- NOTE | 2017-01-04 13:46 | PN ---
Physical Exam: SUBJECTIVE: Patient seen and examined Patient resting in bed comfortably NAD. Day 2 s/p uneventful lap laureano. MICHAEL drain output 50 cc sero sanguineous fluid yesterday and 15 cc overnight. Tolerating soft diet w/o N/V. Mild abdominal discomfort/soreness controlled with PO Oxycodone. + flatus, no BM. Urinating w/o issue. Denies f/c. Ambulating OBJECTIVE: Vital Signs Period Temp Pulse Resp BP Sys/Arita Pulse Ox Last 24 Hr 97.3 F-99.5 F 68-86 18-22 99-140/48-88 96-96 GENERAL: The patient is awake, alert, and fully oriented, in no acute distress. HEAD: Normal with no signs of trauma. EYES: PERRL, extraocular movements intact, sclera anicteric, conjunctiva clear. No ptosis. ENT: moist mucous membranes. NECK: supple. LUNGS: mild bibasilar crackles HEART: Regular rate and rhythm, S1, S2 grade 2 systolic ejection murmur ABDOMEN: Soft, mildly tender, moderately distended, hypoactive bowel sounds, no guarding, no rebound, no hepatosplenomegaly, no masses. clean surgical incisions, MICHAEL in place RUQ EXTREMITIES: 2+ pulses, warm, well-perfused, no edema. NEUROLOGICAL: Cranial nerves II through XII grossly intact. Normal speech, gait not observed. PSYCH: Normal mood, normal affect. SKIN: Warm, dry Laboratory Results - last 24 hr 01/03/17 01/04/17 01/04/17 17:15 06:21 06:50 WBC 7.9 RBC 3.72 Hgb 11.1 D Hct 33.5 MCV 90.1 MCHC 33.3 RDW 14.9 Plt Count 214 MPV 7.4 L Sodium Potassium Chloride Carbon Dioxide Anion Gap BUN Creatinine Creat Clearance w eGFR POC Glucometer 123 114 Random Glucose Calcium Phosphorus Magnesium Total Bilirubin AST ALT Alkaline Phosphatase Total Protein Albumin 01/04/17 01/04/17 06:50 11:26 WBC RBC Hgb Hct MCV MCHC RDW Plt Count MPV Sodium 143 Potassium 3.7 Chloride 104 Carbon Dioxide 29 D Anion Gap 10 BUN 11 Creatinine 0.9 D Creat Clearance w eGFR > 60 POC Glucometer 131 Random Glucose 120 H Calcium 8.1 L Phosphorus 3.1 D Magnesium 2.0 Total Bilirubin 0.5 AST 25 ALT 32 D Alkaline Phosphatase 123 H D Total Protein 5.6 L D Albumin 3.0 L D Active Medications Generic Name Dose Route Start Last Admin Trade Name Freq PRN Reason Stop Dose Admin Acetaminophen 650 mg 01/04/17 13:45 Tylenol - PO Q6H PRN FEVER OR PAIN Heparin Sodium (Porcine) 5,000 unit 01/02/17 22:00 01/04/17 06:20 Heparin - SQ 5,000 unit TID KARLA Administration Lactated Ringer's 1,000 mls @ 75 mls/hr 01/03/17 13:39 01/03/17 22:58 Lactated Ringers Solution IV 75 mls/hr ASDIR KARLA Administration Insulin Aspart 1 vial 01/03/17 07:00 01/04/17 11:44 Novolog Vial Sliding Scale - SQ Not Given TIDAC [facility] Protocol Lisinopril 20 mg 01/03/17 10:00 01/04/17 10:17 Prinivil PO 20 mg DAILY KARLA Administration Ondansetron HCl 8 mg 01/02/17 18:28 01/04/17 02:31 Zofran Injection IVPB 8 mg Q6H PRN Administration NAUSEA Oxycodone HCl 5 mg 01/04/17 08:31 Roxicodone - PO Q4H PRN PAIN Sertraline HCl 100 mg 01/03/17 10:00 01/04/17 10:16 Zoloft - PO 100 mg DAILY KARLA Administration ASSESSMENT/PLAN: Patient is a 71 year old female with significant past medical history of Hypertension, Hyperlipidemia, Diabetes Mellitus, Renal colic s/p lithotripsy , Abdominal hernia, Cholelithiasis presented with severe epigastric pain. Abd CT: cholelithiasis, narrow GB fundus. Pancreas wnl GB US: unchanged from prior, stones, mild extrahepatic tree dil Biliary colic with mild Pancreatitis Day 2 s/p lap laureano -pancreatitis resolved -imaging appreciated -transaminitis resolved -GI, Surgery consult -tolerating soft diet +flatus, no BM -MICHAEL draining 15 cc serosanguineous fluid overnight -ultram for pain -MICHAEL to come out before d/c -f/u pathology -PT Cholecystitis -management as above Abdominal distention -prior KUB x 2 mild distention -normal post op lap laureano, will reassess Diabetes -A1C 6.3 -BGM -Insulin sliding scale has not required coverage HTN -Lisinopril 20mg d Hyperlipidemia -hold simvastatin 20mg PO HS, will restsrt on d/c FEN LR @75 lytes stable Soft diet PPX: Heparin 5000 IU sq Famotidine Dispo: Med-Surg Problem List - Problems (1) Cholecystitis with cholelithiasis Code(s): K80.10 - CALCULUS OF GALLBLADDER W CHRONIC CHOLECYST W/O OBSTRUCTION Qualifiers: Cholelithiasis location: gallbladder and bile duct Cholecystitis acuity : acute Biliary obstruction: without biliary obstruction Qualified Code( s): K80.62 - Calculus of gallbladder and bile duct with acute cholecystitis without obstruction (2) Choledocholithiasis Code(s): K80.50 - CALCULUS OF BILE DUCT W/O CHOLANGITIS OR CHOLECYST W/O OBST (3) Diabetes type 2, controlled Code(s): E11.9 - TYPE 2 DIABETES MELLITUS WITHOUT COMPLICATIONS (4) Gallstone pancreatitis Code(s): K85.10 - BILIARY ACUTE PANCREATITIS WITHOUT NECROSIS OR INFECTION (5) HLD (hyperlipidemia) Code(s): E78.5 - HYPERLIPIDEMIA, UNSPECIFIED (6) Hypertension Code(s): I10 - ESSENTIAL (PRIMARY) HYPERTENSION (7) Renal calculi Code(s): N20.0 - CALCULUS OF KIDNEY (8) DVT prophylaxis Code(s): [id number] - (9) Diabetes mellitus Code(s): E11.9 - TYPE 2 DIABETES MELLITUS WITHOUT COMPLICATIONS Qualifiers: Diabetes mellitus type: type 2 Diabetes mellitus complication status: with hyperglycemia Diabetes mellitus long goods drier insulin use: without longterm use Qualified Code(s): E11.65 - Type 2 diabetes mellitus with hyperglycemia; Z79.4 - terminologist (current) use of insulin (10) Elevated liver enzymes Code(s): R74.8 - ABNORMAL LEVELS OF OTHER SERUM ENZYMES Visit type - Emergency Visit Emergency Visit: Yes ED Registration Date: 12/30/16 Care time: The patient presented to the Emergency Department on the above date and was hospitalized for further evaluation of their emergent condition. - New Patient This patient is new to me today: No - Critical Care Critical Care patient: No - Discharge Referral Referred to [facility] Med P.C.: No
[2017-01-04] MEDS ORDERED: traMADol HCL 50 MG TABLET PO PRN (13:54)
[2017-01-04] MEDS: LACTATED RINGERS SOLUTION 1,000 ML IV SCH (14:06)
--- NOTE | 2017-01-04 14:08 | PATH ---
Surgical Pathology Report Patient Name: SARAI GREER [facility]. Rec. #: [id number] /Age/Gender: 1945 (Age: 71) / F Account: [id number] Location: [address] [place] [id number]/[facility] Taken: 01/02/2017 Received: 01/03/2017 Reported: 01/04/2017 Physicians: Bj Ruiz MD Specimen(s) Received GALLBLADDER Clinical History Cholecystitis with cholelithiasis Final Diagnosis GALLBLADDER, CHOLECYSTECTOMY: CHRONIC CHOLECYSTITIS AND CHOLELITHIASIS. Electronically Signed Andrzej Leone M.D. Gross Description Received in formalin, labeled "gallbladder" is a 7.5 x 2.8 x 2.5 cm gallbladder with a 0.2 cm in length portion of cystic duct attached. The outer surface is lao-pink with multifocal defects and varies from smooth to shaggy. The lumen contains brown-black, sludge-like bile as well as a multiple black, irregular choleliths ranging from 0.1-2.3 cm in greatest dimension. The mucosa is eroded. The wall of the gallbladder ranges from 0.1-0.3 cm in thickness. Tap Builder sections are submitted in one cassette. 01/03/201701/03/2017
--- NOTE | 2017-01-04 17:20 | PN ---
Progress Note (short form) - Note Progress Note: Attending Surgeon POD #1 minimal c/o abdominal pain; tolerated liquids; ? no flatus/BM VSS t99.7 most recent abdo-dost; distended; tympanitic; non tender; MICHAEL w/ serous output WBC 7.9 Bili; LFT's wnl IMP:doing well PLAN:D/c MICHAEL; done;ambulate; diet as tolerated; anticipate d/c 01/05/17.
--- NOTE | 2017-01-04 18:46 | PN ---
GI Progress Note Subjective: GASTROENTEROLOGY DOIN WELL MICHAEL DRAIN SAME BUT LESS OUTPUT - Objective Vital Signs: Vital Signs Temperature 98.4 F 01/04/17 18:05 Pulse Rate 83 01/04/17 18:05 Respiratory Rate 20 01/04/17 18:05 Blood Pressure 122/66 01/04/17 18:05 O2 Sat by Pulse Oximetry (%) 96 01/04/17 09:34 Constitutional: No Distress, Calm Eyes: Yes: Conjunctiva Clear Cardiovascular: Yes: Regular Rate and Rhythm Respiratory: Yes: Regular Gastrointestinal Inspection: Yes: WNL ...Auscultate: Yes: Normoactive Bowel Sounds ...Palpate: Yes: Soft Extremities: Yes: WNL Labs: CBC, BMP 01/04/17 06:50 01/04/17 06:50 INR, PTT INR 1.13 (0.82-1.09) 12/31/16 08:00 Laboratory Tests 12/31/16 01/01/17 01/02/17 08:00 06:15 06:30 WBC 5.7 RBC 4.33 Hgb 13.1 Hct 38.1 MCV 88.2 MCHC 34.3 RDW 14.5 Plt Count 252 MPV 7.2 L INR 1.13 Sodium 143 Potassium 3.8 Chloride 105 Carbon Dioxide 27 Anion Gap 11 BUN 5 L D Creatinine 0.7 Creat Clearance w eGFR > 60 Random Glucose 108 H Calcium 8.8 Phosphorus 3.3 Magnesium 2.3 Total Bilirubin 0.6 AST 30 ALT 46 Alkaline Phosphatase 183 H Total Protein 7.3 Albumin 3.8 01/04/17 01/04/17 06:50 06:50 WBC 7.9 RBC 3.72 Hgb 11.1 D Hct 33.5 MCV 90.1 MCHC 33.3 RDW 14.9 Plt Count 214 MPV INR Sodium Potassium Chloride Carbon Dioxide Anion Gap BUN Creatinine Creat Clearance w eGFR Random Glucose Calcium Phosphorus Magnesium Total Bilirubin 0.5 AST 25 ALT 32 D Alkaline Phosphatase 123 H D Total Protein Albumin Problem List - Problems (1) Gallstone pancreatitis Assessment/Plan: PATH NEG FOR MALIGNANCY POST OP CARE PER SURGERY FOLLOW DRAIN OUTPUT (MINIMAL TODAY) SANCHEZ SIGN OFF CASE TODAY Code(s): K85.10 - BILIARY ACUTE PANCREATITIS WITHOUT NECROSIS OR INFECTION (2) Cholecystitis with cholelithiasis Code(s): K80.10 - CALCULUS OF GALLBLADDER W CHRONIC CHOLECYST W/O OBSTRUCTION Qualifiers: Cholelithiasis location: gallbladder and bile duct Cholecystitis acuity : acute Biliary obstruction: without biliary obstruction Qualified Code( s): K80.62 - Calculus of gallbladder and bile duct with acute cholecystitis without obstruction
--- NOTE | 2017-01-04 19:47 | PN ---
Teaching Attending Note Name of Resident: Paulina Faustin ATTENDING PHYSICIAN STATEMENT I saw and evaluated the patient. I reviewed the resident's note and discussed the case with the resident. I agree with the resident's findings and plan as documented. Patient has no fever or chills, still draining the GP drainange. Vital Signs Temperature 98.4 F 01/04/17 18:05 Pulse Rate 83 01/04/17 18:05 Respiratory Rate 20 01/04/17 18:05 Blood Pressure 122/66 01/04/17 18:05 O2 Sat by Pulse Oximetry (%) 96 01/04/17 09:34 CBCD WBC 7.9 K/mm3 (4.0-10.0) 01/04/17 06:50 RBC 3.72 M/mm3 (3.60-5.2) 01/04/17 06:50 Hgb 11.1 GM/dL (10.7-15.3) D 01/04/17 06:50 Hct 33.5 % (32.4-45.2) 01/04/17 06:50 MCV 90.1 fl (80-96) 01/04/17 06:50 MCHC 33.3 g/dl (32.0-36.0) 01/04/17 06:50 RDW 14.9 % (11.6-15.6) 01/04/17 06:50 Plt Count 214 K/MM3 (134-434) 01/04/17 06:50 MPV 7.4 fl (7.5-11.1) L 01/04/17 06:50 CMP Sodium 143 mmol/L (136-145) 01/04/17 06:50 Potassium 3.7 mmol/L (3.5-5.1) 01/04/17 06:50 Chloride 104 mmol/L (98-107) 01/04/17 06:50 Carbon Dioxide 29 mmol/L (21-32) D 01/04/17 06:50 Anion Gap 10 (8-16) 01/04/17 06:50 BUN 11 mg/dL (7-18) 01/04/17 06:50 Creatinine 0.9 mg/dL (0.55-1.02) D 01/04/17 06:50 Creat Clearance w eGFR > 60 (>60) 01/04/17 06:50 Random Glucose 120 mg/dL (74-106) H 01/04/17 06:50 Calcium 8.1 mg/dL (8.5-10.1) L 01/04/17 06:50 Total Bilirubin 0.5 mg/dL (0.2-1.0) 01/04/17 06:50 AST 25 U/L (15-37) 01/04/17 06:50 ALT 32 U/L (12-78) D 01/04/17 06:50 Alkaline Phosphatase 123 U/L (45-117) H D 01/04/17 06:50 Total Protein 5.6 g/dl (6.4-8.2) L D 01/04/17 06:50 Albumin 3.0 g/dl (3.4-5.0) L D 01/04/17 06:50 CARDIAC ENZYMES Creatine Kinase 63 IU/L (26-192) 12/29/16 21:25 Troponin I < 0.02 ng/ml (0.00-0.05) 12/29/16 21:25 Current Medications Generic Name Dose Route Start Last Admin Trade Name Freq PRN Reason Stop Dose Admin Acetaminophen 650 mg 01/04/17 13:45 Tylenol - PO Q6H PRN FEVER OR PAIN Heparin Sodium (Porcine) 5,000 unit 01/02/17 22:00 01/04/17 14:07 Heparin - SQ 5,000 unit TID KARLA Administration Lactated Ringer's 1,000 mls @ 75 mls/hr 01/03/17 13:39 01/04/17 14:06 Lactated Ringers Solution IV 75 mls/hr ASDIR KARLA Administration Insulin Aspart 1 vial 01/03/17 07:00 01/04/17 17:27 Novolog Vial Sliding Scale - SQ Not Given TIDAC [facility] Protocol Lisinopril 20 mg 01/03/17 10:00 01/04/17 10:17 Prinivil PO 20 mg DAILY KARLA Administration Ondansetron HCl 8 mg 01/02/17 18:28 01/04/17 02:31 Zofran Injection IVPB 8 mg Q6H PRN Administration NAUSEA Sertraline HCl 100 mg 01/03/17 10:00 01/04/17 10:16 Zoloft - PO 100 mg DAILY KARLA Administration Tramadol HCl 50 mg 01/04/17 13:54 Ultram - PO Q4H PRN PAIN Home Medications Medication Instructions Recorded Metformin HCl [Glucophage -] 500 mg PO BID 05/02/14 Simvastatin 20 mg PO HS 05/02/14 Lisinopril [Prinivil] 20 mg PO DAILY 04/17/15 Aspirin [Herminio Chewable Aspirin] 81 mg PO DAILY 12/06/16 Cyanocobalamin (Vitamin B-12) 1,000 mcg PO DAILY 12/06/16 [Vitamin B-12] Sertraline HCl [Zoloft -] 100 mg PO DAILY 12/06/16 ASSESSMENT AND PLAN: 71 y/o lady with h/o Biliary colic on recent admission with cholelithiasis , HTN , HLP , DM , who presented with Abd pain , was found to have elevated lipase and gall stones #POD #2 for acute cholecystitis ; doing well, passed gas ,s/p of MICHAEL drain by , path report pending # DM : hold metformin and cont SSI #HTN: lisinopril Dipso : possible dc tomorrow
[2017-01-05] MEDS ORDERED: DOCUSATE SODIUM 100 MG CAPSULE (FP) PO ONE (02:22)
[2017-01-05] MEDS: LACTATED RINGERS SOLUTION 1,000 ML IV SCH ×2 (03:55→17:08)
[2017-01-05] MEDS: HEPARIN NA (PORCINE) 5,000 UNITS/ML 1ML VIAL SQ SCH ×3 (06:38→22:32)
[2017-01-05] MEDS: INSULIN SLIDING SCALE (NOVOLOG) 1 VIAL SQ SCH ×4 (06:44→18:08)
[2017-01-05] MEDS: SERTRALINE HCL 50 MG TABLET (FP) PO SCH (10:13)
[2017-01-05] MEDS: LISINOPRIL 20 MG TABLET (FP) PO SCH (10:13)
--- NOTE | 2017-01-05 10:20 | PN ---
Progress Note (short form) - Note Progress Note: Attending Surgeon POD #3 Minimal c/o incisional abdominal pain; passing flatus; no BM; tolerating diet; drain out VSS AF abdomen-ports sites c/d/i;slightly distended and tympanitic; o/w negative. IMP: stable post op course; doubt any obstruction; possible ileus. PLAN: Dulcolax supp.
[2017-01-05] MEDS ORDERED: BISACODYL 10 MG SUPP.RECT RC ONE ×2 (12:15→12:56)
--- NOTE | 2017-01-05 17:10 | PN ---
Physical Exam: SUBJECTIVE: Patient seen and examined Patient resting in bed comfortably NAD. Day 2 s/p uneventful lap laureano. MICHAEL taken out last night. Tolerating soft diet w/o N/V. Increased abdominal pain and distention. + flatus, no BM. Urinating w/o issue. Denies f/c. Ambulating OBJECTIVE: Vital Signs Period Temp Pulse Resp BP Sys/Arita Pulse Ox Last 24 Hr 98 F-98.8 F 73-85 20-20 122-150/61-76 93-96 GENERAL: The patient is awake, alert, and fully oriented, in no acute distress. HEAD: Normal with no signs of trauma. EYES: PERRL, extraocular movements intact, sclera anicteric, conjunctiva clear. No ptosis. ENT: moist mucous membranes. NECK: supple. LUNGS: mild bibasilar crackles HEART: Regular rate and rhythm, S1, S2 grade 2 systolic ejection murmur ABDOMEN: Soft, moderately tender, moderately distended, hypoactive bowel sounds , no guarding, no rebound, no hepatosplenomegaly, no masses. clean surgical incisions. empty rectal vault EXTREMITIES: 2+ pulses, warm, well-perfused, no edema. NEUROLOGICAL: Cranial nerves II through XII grossly intact. Normal speech, gait not observed. PSYCH: Normal mood, normal affect. SKIN: Warm, dry Laboratory Results - last 24 hr 01/04/17 01/05/17 01/05/17 17:20 06:44 11:18 POC Glucometer 136 137 118 Active Medications Generic Name Dose Route Start Last Admin Trade Name Freq PRN Reason Stop Dose Admin Acetaminophen 650 mg 01/04/17 13:45 Tylenol - PO Q6H PRN FEVER OR PAIN Heparin Sodium (Porcine) 5,000 unit 01/02/17 22:00 01/05/17 13:41 Heparin - SQ 5,000 unit TID KARLA Administration Lactated Ringer's 1,000 mls @ 75 mls/hr 01/03/17 13:39 01/05/17 03:55 Lactated Ringers Solution IV 75 mls/hr ASDIR KARLA Administration Insulin Aspart 1 vial 01/03/17 07:00 01/05/17 11:29 Novolog Vial Sliding Scale - SQ Not Given TIDAC [facility] Protocol Lisinopril 20 mg 01/03/17 10:00 01/05/17 10:13 Prinivil PO 20 mg DAILY KARLA Administration Ondansetron HCl 8 mg 01/02/17 18:28 01/04/17 02:31 Zofran Injection IVPB 8 mg Q6H PRN Administration NAUSEA Sertraline HCl 100 mg 01/03/17 10:00 01/05/17 10:13 Zoloft - PO 100 mg DAILY KARLA Administration Tramadol HCl 50 mg 01/04/17 13:54 Ultram - PO Q4H PRN PAIN ASSESSMENT/PLAN: Patient is a 71 year old female with significant past medical history of Hypertension, Hyperlipidemia, Diabetes Mellitus, Renal colic s/p lithotripsy , Abdominal hernia, Cholelithiasis presented with severe epigastric pain. Abd CT: cholelithiasis, narrow GB fundus. Pancreas wnl GB US: unchanged from prior, stones, mild extrahepatic tree dil Biliary colic with mild Pancreatitis Day 2 s/p lap laureano -pancreatitis resolved -imaging appreciated -transaminitis resolved -GI, Surgery consult -tolerating soft diet +flatus, no BM -MICHAEL removed -ultram for pain -pathology negative for neoplasm -PT Cholecystitis -management as above Abdominal distention -prior KUB x 2 mild distention -increased abd distention and pain -oil enema, colace, abd x ray, keep here another day Diabetes -A1C 6.3 -BGM -Insulin sliding scale has not required coverage HTN -Lisinopril 20mg d Hyperlipidemia -hold simvastatin 20mg PO HS, will restsrt on d/c FEN LR @75 lytes stable Soft diet PPX: Heparin 5000 IU sq Famotidine Dispo: Med-Surg Problem List - Problems (1) Cholecystitis with cholelithiasis Code(s): K80.10 - CALCULUS OF GALLBLADDER W CHRONIC CHOLECYST W/O OBSTRUCTION Qualifiers: Cholelithiasis location: gallbladder and bile duct Cholecystitis acuity : acute Biliary obstruction: without biliary obstruction Qualified Code( s): K80.62 - Calculus of gallbladder and bile duct with acute cholecystitis without obstruction (2) Choledocholithiasis Code(s): K80.50 - CALCULUS OF BILE DUCT W/O CHOLANGITIS OR CHOLECYST W/O OBST (3) Diabetes type 2, controlled Code(s): E11.9 - TYPE 2 DIABETES MELLITUS WITHOUT COMPLICATIONS (4) Gallstone pancreatitis Code(s): K85.10 - BILIARY ACUTE PANCREATITIS WITHOUT NECROSIS OR INFECTION (5) HLD (hyperlipidemia) Code(s): E78.5 - HYPERLIPIDEMIA, UNSPECIFIED (6) Hypertension Code(s): I10 - ESSENTIAL (PRIMARY) HYPERTENSION (7) Renal calculi Code(s): N20.0 - CALCULUS OF KIDNEY (8) DVT prophylaxis Code(s): [id number] - (9) Diabetes mellitus Code(s): E11.9 - TYPE 2 DIABETES MELLITUS WITHOUT COMPLICATIONS Qualifiers: Diabetes mellitus type: type 2 Diabetes mellitus complication status: with hyperglycemia Diabetes mellitus terminal operations manager insulin use: without chcf use Qualified Code(s): E11.65 - Type 2 diabetes mellitus with hyperglycemia; Z79.4 - snf (current) use of insulin (10) Elevated liver enzymes Code(s): R74.8 - ABNORMAL LEVELS OF OTHER SERUM ENZYMES Visit type - Emergency Visit Emergency Visit: Yes ED Registration Date: 12/30/16 Care time: The patient presented to the Emergency Department on the above date and was hospitalized for further evaluation of their emergent condition. - New Patient This patient is new to me today: No - Critical Care Critical Care patient: No - Discharge Referral Referred to [facility] Med P.C.: No
--- NOTE | 2017-01-05 18:53 | PN ---
Teaching Attending Note Name of Resident: Paulina Faustin ATTENDING PHYSICIAN STATEMENT I saw and evaluated the patient. I reviewed the resident's note and discussed the case with the resident. I agree with the resident's findings and plan as documented. Patient is lying in bed with no acute distress, but c/o having distended abdomen with tenderness ,with no nausea or vomiting, no shortness of breath. Tolerating diet well, passing gas. Vital Signs Temperature 98.1 F 01/05/17 14:27 Pulse Rate 73 01/05/17 14:27 Respiratory Rate 20 01/05/17 14:27 Blood Pressure 143/76 01/05/17 14:27 O2 Sat by Pulse Oximetry (%) 93 L 01/05/17 09:00 CBCD WBC 7.9 K/mm3 (4.0-10.0) 01/04/17 06:50 RBC 3.72 M/mm3 (3.60-5.2) 01/04/17 06:50 Hgb 11.1 GM/dL (10.7-15.3) D 01/04/17 06:50 Hct 33.5 % (32.4-45.2) 01/04/17 06:50 MCV 90.1 fl (80-96) 01/04/17 06:50 MCHC 33.3 g/dl (32.0-36.0) 01/04/17 06:50 RDW 14.9 % (11.6-15.6) 01/04/17 06:50 Plt Count 214 K/MM3 (134-434) 01/04/17 06:50 MPV 7.4 fl (7.5-11.1) L 01/04/17 06:50 CMP Sodium 143 mmol/L (136-145) 01/04/17 06:50 Potassium 3.7 mmol/L (3.5-5.1) 01/04/17 06:50 Chloride 104 mmol/L (98-107) 01/04/17 06:50 Carbon Dioxide 29 mmol/L (21-32) D 01/04/17 06:50 Anion Gap 10 (8-16) 01/04/17 06:50 BUN 11 mg/dL (7-18) 01/04/17 06:50 Creatinine 0.9 mg/dL (0.55-1.02) D 01/04/17 06:50 Creat Clearance w eGFR > 60 (>60) 01/04/17 06:50 Random Glucose 120 mg/dL (74-106) H 01/04/17 06:50 Calcium 8.1 mg/dL (8.5-10.1) L 01/04/17 06:50 Total Bilirubin 0.5 mg/dL (0.2-1.0) 01/04/17 06:50 AST 25 U/L (15-37) 01/04/17 06:50 ALT 32 U/L (12-78) D 01/04/17 06:50 Alkaline Phosphatase 123 U/L (45-117) H D 01/04/17 06:50 Total Protein 5.6 g/dl (6.4-8.2) L D 01/04/17 06:50 Albumin 3.0 g/dl (3.4-5.0) L D 01/04/17 06:50 CARDIAC ENZYMES Creatine Kinase 63 IU/L (26-192) 12/29/16 21:25 Troponin I < 0.02 ng/ml (0.00-0.05) 12/29/16 21:25 Current Medications Generic Name Dose Route Start Last Admin Trade Name Freq PRN Reason Stop Dose Admin Acetaminophen 650 mg 01/04/17 13:45 Tylenol - PO Q6H PRN FEVER OR PAIN Heparin Sodium (Porcine) 5,000 unit 01/02/17 22:00 01/05/17 13:41 Heparin - SQ 5,000 unit TID KARLA Administration Lactated Ringer's 1,000 mls @ 75 mls/hr 01/03/17 13:39 01/05/17 17:08 Lactated Ringers Solution IV 75 mls/hr ASDIR KARLA Administration Insulin Aspart 1 vial 01/03/17 07:00 01/05/17 18:08 Novolog Vial Sliding Scale - SQ Not Given TIDAC [facility] Protocol Lisinopril 20 mg 01/03/17 10:00 01/05/17 10:13 Prinivil PO 20 mg DAILY KARLA Administration Ondansetron HCl 8 mg 01/02/17 18:28 01/04/17 02:31 Zofran Injection IVPB 8 mg Q6H PRN Administration NAUSEA Sertraline HCl 100 mg 01/03/17 10:00 03/30/17 10:13 Zoloft - PO 100 mg DAILY KARLA Administration Tramadol HCl 50 mg 01/04/17 13:54 Ultram - PO Q4H PRN PAIN Home Medications Medication Instructions Recorded Metformin HCl [Glucophage -] 500 mg PO BID 05/02/14 Simvastatin 20 mg PO HS 05/02/14 Lisinopril [Prinivil] 20 mg PO DAILY 04/17/15 Aspirin [Herminio Chewable Aspirin] 81 mg PO DAILY 12/06/16 Cyanocobalamin (Vitamin B-12) 1,000 mcg PO DAILY 12/06/16 [Vitamin B-12] Sertraline HCl [Zoloft -] 100 mg PO DAILY 12/06/16 Abdomen: POsitive for distended abdomen, with tenderness on palpations ASSESSMENT AND PLAN: 71 y/o lady with h/o Biliary colic on recent admission with cholelithiasis , HTN , HLP , DM , who presented with Abd pain , was found to have elevated lipase and gall stones #POD #3 acute cholecystitis ; with distended abdomen today and had no bms yet, wll add colace, enema mineral , glycerin suppositories x 2 , s/p of MICHAEL drain removal by , path report pending. # DM : hold metformin and cont SSI #HTN: lisinopril Dipso : possible dc tomorrow
[2017-01-05] MEDS ORDERED: GLYCERIN 1 RECTAL SUPPOSITORY, ADULT RC PRN (18:57)
[2017-01-05] MEDS: DOCUSATE SODIUM 100 MG CAPSULE (FP) PO SCH (22:33)
[2017-01-06 03:19] VITALS: PULSE 80
[2017-01-06] MEDS: DOCUSATE SODIUM 100 MG CAPSULE (FP) PO SCH (06:45)
[2017-01-06] MEDS: HEPARIN NA (PORCINE) 5,000 UNITS/ML 1ML VIAL SQ SCH (06:45)
[2017-01-06] MEDS: INSULIN SLIDING SCALE (NOVOLOG) 1 VIAL SQ SCH ×2 (06:46→11:36)
[2017-01-06 08:15] LABS: MCH 30.4 pg (25.7-33.7); MEAN CELL VOLUME 89.1 fl (80-96); MEAN PLT VOLUME 7.4 fl (7.5-11.1); PLATELET COUNT 190 K/MM3 (134-434); RDW 14.7 % (11.6-15.6); WHITE BLOOD COUNT 6.2 K/mm3 (4.0-10.0)
[2017-01-06] MEDS: SERTRALINE HCL 50 MG TABLET (FP) PO SCH (10:25)
[2017-01-06] MEDS: LISINOPRIL 20 MG TABLET (FP) PO SCH (10:25)
--- NOTE | 2017-01-06 11:07 | PN ---
Teaching Attending Note Name of Resident: Deuce Abdullahi ATTENDING PHYSICIAN STATEMENT I saw and evaluated the patient. I reviewed the resident's note and discussed the case with the resident. I agree with the resident's findings and plan as documented. Patient is feeling better, abdominal pain only when u palpate the abdomen. No nausea or vomiting. Vital Signs Temperature 98 F 01/05/17 22:00 Pulse Rate 80 01/05/17 22:00 Respiratory Rate 20 01/05/17 22:00 Blood Pressure 135/78 01/05/17 22:00 O2 Sat by Pulse Oximetry (%) 93 L 01/05/17 09:00 CBCD WBC 6.2 K/mm3 (4.0-10.0) 01/06/17 05:40 RBC 3.39 M/mm3 (3.60-5.2) L 01/06/17 05:40 Hgb 10.3 GM/dL (10.7-15.3) L 01/06/17 05:40 Hct 30.2 % (32.4-45.2) L 01/06/17 05:40 MCV 89.1 fl (80-96) 01/06/17 05:40 MCHC 34.0 g/dl (32.0-36.0) 01/06/17 05:40 RDW 14.7 % (11.6-15.6) 01/06/17 05:40 Plt Count 190 K/MM3 (134-434) 01/06/17 05:40 MPV 7.4 fl (7.5-11.1) L 01/06/17 05:40 CMP Sodium 143 mmol/L (136-145) 01/04/17 06:50 Potassium 3.7 mmol/L (3.5-5.1) 01/04/17 06:50 Chloride 104 mmol/L (98-107) 01/04/17 06:50 Carbon Dioxide 29 mmol/L (21-32) D 01/04/17 06:50 Anion Gap 10 (8-16) 01/04/17 06:50 BUN 11 mg/dL (7-18) 01/04/17 06:50 Creatinine 0.9 mg/dL (0.55-1.02) D 01/04/17 06:50 Creat Clearance w eGFR > 60 (>60) 01/04/17 06:50 Random Glucose 120 mg/dL (74-106) H 01/04/17 06:50 Calcium 8.1 mg/dL (8.5-10.1) L 01/04/17 06:50 Total Bilirubin 0.5 mg/dL (0.2-1.0) 01/04/17 06:50 AST 25 U/L (15-37) 01/04/17 06:50 ALT 32 U/L (12-78) D 01/04/17 06:50 Alkaline Phosphatase 123 U/L (45-117) H D 01/04/17 06:50 Total Protein 5.6 g/dl (6.4-8.2) L D 01/04/17 06:50 Albumin 3.0 g/dl (3.4-5.0) L D 01/04/17 06:50 CARDIAC ENZYMES Creatine Kinase 63 IU/L (26-192) 12/29/16 21:25 Troponin I < 0.02 ng/ml (0.00-0.05) 12/29/16 21:25 Current Medications Generic Name Dose Route Start Last Admin Trade Name Freq PRN Reason Stop Dose Admin Acetaminophen 650 mg 01/04/17 13:45 Tylenol - PO Q6H PRN FEVER OR PAIN Docusate Sodium 100 mg 01/05/17 22:00 01/06/17 06:45 Colace - PO 100 mg TID [facility] Administration Glycerin 2 each 01/05/17 18:57 Glycerin Suppository Adult - RC DAILY PRN CONSTIPATION Heparin Sodium (Porcine) 5,000 unit 01/02/17 22:00 01/06/17 06:45 Heparin - SQ 5,000 unit TID [facility] Administration Insulin Aspart 1 vial 01/03/17 07:00 01/06/17 06:46 Novolog Vial Sliding Scale - SQ Not Given TIDAC [facility] Protocol Lisinopril 20 mg 01/03/17 10:00 01/06/17 10:25 Prinivil PO 20 mg DAILY KARLA Administration Ondansetron HCl 8 mg 01/02/17 18:28 01/04/17 02:31 Zofran Injection IVPB 8 mg Q6H PRN Administration NAUSEA Sertraline HCl 100 mg 01/03/17 10:00 01/06/17 10:25 Zoloft - PO 100 mg DAILY KARLA Administration Tramadol HCl 50 mg 01/04/17 13:54 Ultram - PO Q4H PRN PAIN Microbiology 12/30/16 19:35 Urine - Urine Clean Catch Urine Culture - Final Contaminated: Please Repeat ASSESSMENT AND PLAN: 71 y/o lady with h/o Biliary colic on recent admission with cholelithiasis , HTN , HLP , DM , who presented with Abd pain , was found to have elevated lipase and gall stones #POD #4 acute cholecystitis ; with distended abdomen today and had no bm today as well , will add colace tid 100mg daily, glycerin suppositories as needed at home. Discussed with . Follow up with surgeon post discharge # DM : continue metformin at home #HTN: lisinopril dc patient home today
--- NOTE | 2017-01-06 11:07 | DS ---
Physical Exam: SUBJECTIVE: Patient seen and examined Patient resting in bed comfortably NAD. Day 3 s/p uneventful lap laureano. MICHAEL out. Tolerating soft diet w/o N/V. Mild abdominal wall pain and distention. + flatus , no BM. Urinating w/o issue. Denies f/c. Ambulating OBJECTIVE: Vital Signs Period Temp Pulse Resp BP Sys/Arita Pulse Ox Last 24 Hr 98 F-99.9 F 73-80 20-20 135-143/76-80 PHYSICAL EXAM GENERAL: The patient is awake, alert, and fully oriented, in no acute distress. HEAD: Normal with no signs of trauma. EYES: PERRL, extraocular movements intact, sclera anicteric, conjunctiva clear. No ptosis. ENT: moist mucous membranes. NECK: supple. LUNGS: mild bibasilar crackles HEART: Regular rate and rhythm, S1, S2 grade 2 systolic ejection murmur ABDOMEN: Soft, mildly tender, moderately distended, normal bowel sounds, no guarding, no rebound, no hepatosplenomegaly, no masses. clean surgical incisions. EXTREMITIES: 2+ pulses, warm, well-perfused, no edema. NEUROLOGICAL: Cranial nerves II through XII grossly intact. Normal speech, gait not observed. PSYCH: Normal mood, normal affect. SKIN: Warm, dry LABS Laboratory Results - last 24 hr 01/05/17 01/05/17 01/06/17 11:18 16:52 05:40 WBC 6.2 RBC 3.39 L Hgb 10.3 L Hct 30.2 L MCV 89.1 MCHC 34.0 RDW 14.7 Plt Count 190 MPV 7.4 L POC Glucometer 118 115 01/06/17 06:51 WBC RBC Hgb Hct MCV MCHC RDW Plt Count MPV POC Glucometer 107 HOSPITAL COURSE: Date of Admission:12/30/16 Patient is a 71 year old female with significant past medical history of Hypertension, Hyperlipidemia, Diabetes Mellitus, Renal colic s/p lithotripsy , Abdominal hernia, Cholelithiasis presented with severe epigastric pain, not associated with nausea or vomiting. Similar episode 3 weeks ago, was admitted on 12/07/2016, CT scan of abdomen/pelvis was done showing Cholelithiasis. MRCP was done but there was no finding of choledocholithiasis or cholecystitis. As per the old chart, she was supposed to f/up with Dr. Wilburn after a week of discharge (12/09/16) for an ERCP but patient didn't follow up because of transportation and financial issues. She was admitter for Biliary colic with mild Pancreatitis. She was evaluated by gospitalist, Gi and Judith. She was treated with abx and IVF and once pancreatitis resolved, had an uneventful lap laureano and discharged on POD3 after MICHAEL was removed. Admission Imaging Abd CT: cholelithiasis, narrow GB fundus. Pancreas wnl GB US: unchanged from prior, stones, mild extrahepatic tree dil Date of Discharge: 01/06/17 Minutes to complete discharge: 56 (na) Discharge Summary Reason For Visit: CHOLECYSTITIS W/CHOLELITHIASIS Current Active Problems Cholecystitis with cholelithiasis (Acute) Choledocholithiasis (Acute) Cholelithiasis (Acute) Diabetes type 2, controlled (Acute) Gallstone pancreatitis (Acute) Hyperactive bowel sounds (Acute) HLD (hyperlipidemia) (Chronic) Hypertension (Chronic) Renal calculi (Chronic) Condition: Good - Instructions Diet, Activity, Other Instructions: Dr Ruiz Discharge Instructions Dear SARAI GREER, Post Operative Instructions Physical activity Resume your normal everyday activity as tolerated no heavy lifting or exercise until seen by your surgeon. You may walk unlimited liliana of and climb stairs. You may resume driving the car when you feel safe and comfortable behind the wheel. Wound care If you have a bandage, leave it on, and keep dry for 48-72 hours. After that time discard the outer bandage. If there are tapes on the skin under the outer bandage, leave them in place. They will peel off in the next 7 to 10 days. Do Not Peel them off. You may shower the day after surgery. If there are tapes present on the skin, you may shower over them. Diet There are no dietary restrictions. Eat healthy, high-fiber foods. Drink 6 to 8 glasses of liquid each day. This will assist in keeping your bowels are regular. Pain management You may take Tylenol or acetaminophen or Ibuprofen (for example, Motrin, Advil etc.) Any pain prescription medication ordered should be taken as prescribed for moderate to severe pain. Call Dr. Ruiz for any of the following: Severe pain not relieved by medication Fever of 101 or higher Excessive bleeding or drainage on dressing Call the office at [phone] for an appointment in seven days. Referrals: Bj Ruiz MD [Staff Physician] - 1 Week Disposition: HOME - Home Medications Comprehensive Discharge Medication List: Ambulatory Orders Metformin HCl [Glucophage -] 500 mg PO BID 05/02/14 Simvastatin 20 mg PO HS 05/02/14 Lisinopril [Prinivil] 20 mg PO DAILY 04/17/15 Aspirin [Herminio Chewable Aspirin] 81 mg PO DAILY 12/06/16 Cyanocobalamin (Vitamin B-12) [Vitamin B-12] 1,000 mcg PO DAILY 12/06/16 Sertraline HCl [Zoloft -] 100 mg PO DAILY 12/06/16 Docusate Sodium [Colace -] 100 mg PO TID #90 cap 01/06/17 Problem List - Problems (1) Cholecystitis with cholelithiasis Code(s): K80.10 - CALCULUS OF GALLBLADDER W CHRONIC CHOLECYST W/O OBSTRUCTION Qualifiers: Cholelithiasis location: gallbladder and bile duct Cholecystitis acuity : acute Biliary obstruction: without biliary obstruction Qualified Code( s): K80.62 - Calculus of gallbladder and bile duct with acute cholecystitis without obstruction (2) Choledocholithiasis Code(s): K80.50 - CALCULUS OF BILE DUCT W/O CHOLANGITIS OR CHOLECYST W/O OBST (3) Diabetes type 2, controlled Code(s): E11.9 - TYPE 2 DIABETES MELLITUS WITHOUT COMPLICATIONS (4) Gallstone pancreatitis Code(s): K85.10 - BILIARY ACUTE PANCREATITIS WITHOUT NECROSIS OR INFECTION (5) HLD (hyperlipidemia) Code(s): E78.5 - HYPERLIPIDEMIA, UNSPECIFIED (6) Hypertension Code(s): I10 - ESSENTIAL (PRIMARY) HYPERTENSION (7) Renal calculi Code(s): N20.0 - CALCULUS OF KIDNEY (8) DVT prophylaxis Code(s): [id number] - (9) Diabetes mellitus Code(s): E11.9 - TYPE 2 DIABETES MELLITUS WITHOUT COMPLICATIONS Qualifiers: Diabetes mellitus type: type 2 Diabetes mellitus complication status: with hyperglycemia Diabetes mellitus snf insulin use: without snf use Qualified Code(s): E11.65 - Type 2 diabetes mellitus with hyperglycemia; 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 Critical Care patient: No - Discharge Referral Referred to [facility] Med [facility].C.: No
--- NOTE | 2017-01-06 11:40 | PN ---
Progress Note (short form) - Note Progress Note: Attending Surgeon POD #4 No c/o ;passed flatus; tolerating diet VSS AF abdo soft/obese non tympanic and/or tender; port sites c/d/i IMP:doing well; PLAN:D/C to opd f/u next week. Bj Ruiz MD FACS
[2017-01-06 12:34] VITALS: BP 134/83; TEMP 99
== END 2017-01-06 13:07 | disposition home or self-care (01) | DRG 411 ==
LOC: JER 20:41 → JERBED 12-30 00:24 → J5S 12-30 04:55
PROVIDERS: ADMIT Internal Medicine; ATTEND Internal Medicine
PROC: 0F9940Z Drainage of Common Bile Duct with Drainage Device, Percutaneous Endoscopic Approach (ICD-10-PCS; 2017-01-02)
PROC: 0DNS4ZZ (ICD-10-PCS; 2017-01-02)
PROC: 0FT44ZZ Resection of Gallbladder, Percutaneous Endoscopic Approach (ICD-10-PCS; principal; 2017-01-02 13:30)
DX: K80.62 Calculus of gallbladder and bile duct with acute cholecystitis without obstruction (principal); K85.10 Biliary acute pancreatitis without necrosis or infection; I10 Essential (primary) hypertension; E78.5 Hyperlipidemia, unspecified; Z87.442 Personal history of urinary calculi; F32.9 Major depressive disorder, single episode, unspecified; R74.8 Abnormal levels of other serum enzymes; E87.6 Hypokalemia; K66.0 Peritoneal adhesions (postprocedural) (postinfection); R19.12 Hyperactive bowel sounds; E11.65 Type 2 diabetes mellitus with hyperglycemia; Z79.4 Long term (current) use of insulin
CPT/HCPCS: 36415; 74000-TC; 74177-TC; 74181-TC; 76705-TC; 80048; 80053; 80076; 81003; 81015; 82150; 82550; 82607; 83036; 83690; 83735; 84100; 84484; 85025; 85027; 85610; 85730; 86140; 86850; 86900; 86901; 87086; 88304-TC; 93005; 93010; 93306-TC; 94760; 97116-GP; 97161-GP; 99283-25; J1644

== ENCOUNTER 2017-02-28 21:44 | Emergency (ER) | payer OTHER ==
[2017-02-28 22:06] VITALS: BP 154/80; PULSE 87; TEMP 98.4; BMI 32.5
--- NOTE | 2017-02-28 22:44 | PDOC ---
History of Present Illness - History of Present Illness Initial Comments: 02/28/17 22:46 Patient is a 71 year old female with significant medical hx of DM type II, chronic venous stasis, HTN, HLD, renal colic s/p lithotripsy, abdominal hernia, cholelithiasis, DVT, and PE who is presenting to the ED with rash to forearms bilaterally since this afternoon. The patient states she was moping the floors and folding laundry when suddenly noticed rashes to her forearms. Patient reports that her rashes burn but she does not experience any itching. Patient states that she has been using the same detergents and cleaning products as she usually uses. Denies known allergies, difficulty breathing, scratching the rash , and eating foods that are out of the ordinary. Allergies: NKDA. <Noris Best - Last Filed: 02/28/17 23:05> <Kelsie Watkins - Last Filed: 03/01/17 00:31> - General Chief Complaint: Rash Stated Complaint: RASH Time Seen by Provider: 02/28/17 22:34 Past History <Noris Best - Last Filed: 02/28/17 23:05> - Past Medical History Diabetes: Yes Disorders: Yes (kidney stones) HTN: Yes Hypercholesterolemia: Yes Suicide Attempt (Hx): No - Immunization History Immunization Up to Date: Yes - Psycho/Social/Smoking Cessation Hx Anxiety: No Suicidal Ideation: No Smoking History: Never smoked Have you smoked in the past 12 months: No Information on smoking cessation initiated: No Hx Alcohol Use: No Drug/Substance Use Hx: No Substance Use Type: None Hx Substance Use Treatment: No <Kelsie Watkins - Last Filed: 03/01/17 00:31> - Past Medical History Allergies/Adverse Reactions: Allergies Allergy/AdvReac Type Severity Reaction Status Date / Time No Known Drug Allergies Allergy Verified 02/28/17 22:39 Home Medications: Ambulatory Orders Metformin HCl [Glucophage -] 500 mg PO BID 05/02/14 Simvastatin 20 mg PO HS 05/02/14 Lisinopril [Prinivil] 20 mg PO DAILY 04/17/15 Aspirin [Herminio Chewable Aspirin] 81 mg PO DAILY 12/06/16 Cyanocobalamin (Vitamin B-12) [Vitamin B-12] 1,000 mcg PO DAILY 12/06/16 Sertraline HCl [Zoloft -] 100 mg PO DAILY 12/06/16 Docusate Sodium [Colace -] 100 mg PO TID #90 cap 01/06/17 Review of Systems - Review of Systems Comments:: 02/28/17 22:57 CONSTITUTIONAL: Absent: fever, chills, diaphoresis, generalized weakness, malaise, loss of appetite HEENT: Absent: rhinorrhea, nasal congestion, throat pain, throat swelling, difficulty swallowing, mouth swelling, ear pain, eye pain, visual changes CARDIOVASCULAR: Absent: chest pain, syncope, palpitations, irregular heart rate, lightheadedness , peripheral edema RESPIRATORY: Absent: cough, shortness of breath, dyspnea with exertion, orthopnea, wheezing, stridor, hemoptysis GASTROINTESTINAL: Absent: abdominal pain, abdominal distension, nausea, vomiting, diarrhea, constipation, melena, hematochezia GENITOURINARY: Absent: dysuria, frequency, urgency, hesitancy, hematuria, flank pain, genital pain MUSCULOSKELETAL: Absent: myalgia, arthralgia, joint swelling SKIN: Present: rash bilateral forearms Absent: itching, pallor HEMATOLOGIC/IMMUNOLOGIC: Absent: easy bleeding, easy bruising, lymphadenopathy, frequent infections ENDOCRINE: Absent: unexplained weight gain, unexplained weight loss, heat intolerance, cold intolerance NEUROLOGIC: Absent: headache, focal weakness or paresthesia, dizziness, unsteady gait, seizure, mental status changes, bladder or bowel incontinence. PSYCHIATRIC: Absent: anxiety, depression, suicidal or homicidal ideation, hallucinations <Nasir,Noris - Last Filed: 02/28/17 23:05> *Physical Exam - Vital Signs Last Vital Signs Temp Pulse Resp BP Pulse Ox 98.4 F 87 18 154/80 97 02/28/17 22:04 02/28/17 22:04 02/28/17 22:04 02/28/17 22:04 02/28/17 22:04 - Physical Exam Comments: 02/28/17 22:59 GENERAL: Well developed, well nourished. Awake and alert. No acute distress. HEENT: Normocephalic, atraumatic. PERRLA, EOMI. No conjunctival pallor. Sclera are non- icteric. Moist mucous membranes. Oropharynx is clear. NECK: Supple. Full ROM. No JVD. Carotid pulses 2+ and symmetric, without bruits. No thyromegaly. No lymphadenopathy. CARDIOVASCULAR: Regular rate and rhythm. No murmurs, rubs, or gallops. Distal pulses are 2+ and symmetric. PULMONARY: No evidence of respiratory distress. Lungs clear to auscultation bilaterally. No wheezing, rales or rhonchi. ABDOMINAL: Soft. Non-tender. Non-distended. No rebound or guarding. No organomegaly. Normoactive bowel sounds. MUSCULOSKELETAL: Normal range of motion at all joints. No bony deformities or tenderness. No CVA tenderness. EXTREMITIES: Bilateral pedal edema. No cyanosis. No clubbing. No calf tenderness. SKIN: Warm and dry. Scattered excoriations to lower extremities. Dorsal surface of bilateral forearms there is a very circumscribed, raised, erythematous, confluent, non itchy, rash. Right forearm rash measures 20 cm. Left forearm rash measures 10 cm. No streaking. Normal capillary refill. No jaundice. NEUROLOGICAL: Alert, awake, appropriate. Cranial nerves 2-12 intact. Normal speech. Gait is normal without ataxia. PSYCHIATRIC: Cooperative. Good eye contact. Appropriate mood and affect. <Noris Best - Last Filed: 02/28/17 23:05> - Vital Signs Last Vital Signs Temp Pulse Resp BP Pulse Ox 98.4 F 87 18 154/80 97 02/28/17 22:04 02/28/17 22:04 02/28/17 22:04 02/28/17 22:04 02/28/17 22:04 <Kelsie Watkins - Last Filed: 03/01/17 00:31> *DC/Admit/Observation/Transfer - Attestations Scribe Attestion: 02/28/17 23:02 Documentation prepared by Noris Best, acting as medical billing manager for Kelsie Watkins MD. <Noris Best - Last Filed: 02/28/17 23:05> <Kelsie Watkins - Last Filed: 03/01/17 00:31> Diagnosis at time of Disposition: Rash, skin - Discharge Dispostion Disposition: HOME Condition at time of disposition: Stable - Referrals Referrals: Kathleen Perez MD [Primary Care Provider] - Chasity Fox MD [Staff Physician] - - Patient Instructions Printed Discharge Instructions: DI for Rash Additional Instructions: -please see your physician or the saw superintendent this week -please return if you develop worsening symptoms,fever
[2017-02-28] MEDS ORDERED: diphenhydrAMINE HCL 25 MG CAPSULE (FP) PO ONE ×2 (22:51→23:06)
== END 2017-03-01 00:38 | disposition home or self-care (01) ==
LOC: SUPCPDRO 21:44 → JER 21:44
DX: R21 Rash and other nonspecific skin eruption (principal); I10 Essential (primary) hypertension; E11.9 Type 2 diabetes mellitus without complications; Z79.84 Long term (current) use of oral hypoglycemic drugs; E70.0 Classical phenylketonuria; I87.8 Other specified disorders of veins; Z87.442 Personal history of urinary calculi; Z86.718 Personal history of other venous thrombosis and embolism; Z86.711 Personal history of pulmonary embolism
CPT/HCPCS: 99281-25

== ENCOUNTER 2018-03-05 14:13 | Inpatient (IN) | payer OTHER ==
[2018-03-05 14:21] VITALS: BMI 34.3
--- NOTE | 2018-03-05 17:03 | PDOC ---
History of Present Illness - General Chief Complaint: Pain, Acute Stated Complaint: BACK PAIN Time Seen by Provider: 03/05/18 15:04 - History of Present Illness Initial Comments: 03/05/18 16:56 71 yo F with h/o DM, HTN, HLD, DVT, PE who p/w with R flank pain. Patient reports developing unremitting, R sided flank pain, at aproximately 1045 following bowel meovmenet. denies BPR. Pain worse with deep inhalation and movement. Patient reports taking 2 Tylenol with no releif of symptoms. States that pain is different from L sided renal colic pain experienced in the past. H/ o L sided ECSWL. Denies F/C, N/V, CP, SOB, diarrhea, constipation, BPR, urinary complaints, hematuria, weakness, lightheadedness, sensory changes. PMHx: as noted above. H/o choleycystectomy. ROS: as noted above SHx: Denies Etoh, tobacco, or IVDA. Allergies: Dilaudid Past History - Past Medical History Allergies/Adverse Reactions: Allergies Allergy/AdvReac Type Severity Reaction Status Date / Time No Known Drug Allergies Allergy Verified 03/05/18 14:18 Home Medications: Ambulatory Orders Simvastatin 20 mg PO HS 05/02/14 metFORMIN HCL [Glucophage -] 500 mg PO BID 05/02/14 Lisinopril [Prinivil] 20 mg PO DAILY 04/17/15 Aspirin [Herminio Chewable Aspirin] 81 mg PO DAILY 12/06/16 Cyanocobalamin (Vitamin B-12) [Vitamin B-12] 1,000 mcg PO DAILY 12/06/16 Sertraline HCl [Zoloft -] 100 mg PO DAILY 12/06/16 Docusate Sodium [Colace -] 100 mg PO TID #90 cap 01/06/17 COPD: No DVT: No Diabetes: Yes Disorders: Yes (kidney stones) HTN: Yes Hypercholesterolemia: Yes - Immunization History Immunization Up to Date: Yes - Suicide/Smoking/Psychosocial Hx Smoking History: Never smoked Have you smoked in the past 12 months: No Hx Alcohol Use: No Drug/Substance Use Hx: No Substance Use Type: None Hx Substance Use Treatment: No Review of Systems - Review of Systems Comments:: 03/05/18 17:04 GENERAL/CONSTITUTIONAL: No fever or chills. No weakness. HEAD, EYES, EARS, NOSE AND THROAT: No change in vision. No ear pain or discharge. No sore throat. CARDIOVASCULAR: No chest pain or shortness of breath RESPIRATORY: No cough, wheezing, or hemoptysis. GASTROINTESTINAL: No nausea, vomiting, diarrhea or constipation. GENITOURINARY: No dysuria, frequency, or change in urination. MUSCULOSKELETAL: + Right flank pain. No joint or muscle swelling or pain. No neck or back pain. SKIN: No rash NEUROLOGIC: No headache, vertigo, loss of consciousness, or change in strength/ sensation. ENDOCRINE: No increased thirst. No abnormal weight change HEMATOLOGIC/LYMPHATIC: No anemia, easy bleeding, or history of blood clots. ALLERGIC/IMMUNOLOGIC: No hives or skin allergy. *Physical Exam - Vital Signs Last Vital Signs Temp Pulse Resp BP Pulse Ox 98.6 F 87 18 147/88 98 03/05/18 14:18 03/05/18 14:18 03/05/18 14:18 03/05/18 14:18 03/05/18 14:18 - Physical Exam Comments: 03/05/18 17:05 GENERAL: Awake, alert, and fully oriented, in no acute distress HEAD: No signs of trauma, normocephalic, atraumatic EYES: PERRLA, EOMI, sclera anicteric, conjunctiva clear ENT:Hearing grossly normal, nares patent, oropharynx clear without exudates. Moist mucosa NECK: Normal ROM, supple, no lymphadenopathy, JVD, or masses LUNGS: No distress, speaks full sentences, clear to auscultation bilaterally HEART: Regular rate and rhythm, normal S1 and S2, no murmurs, rubs or gallops, peripheral pulses normal and equal bilaterally. ABDOMEN: + Right sided flank pain. Soft, nontender, normoactive bowel sounds. No guarding, no rebound. No masses EXTREMITIES : Normal inspection, Normal range of motion, no edema. No clubbing or cyanosis. SKIN: Warm, Dry, normal turgor, no rashes or lesions noted ED Treatment Course - LABORATORY CBC & Chemistry Diagram: 03/05/18 17:35 03/05/18 17:35 Medical Decision Making - Medical Decision Making 03/05/18 17:00 71 yo F with h/o DM, HTN, HLD, DVT, PE who p/w with R flank pain this AM. VSS, AF, A&OX3. + Right sided CVA ttp. Will evaluate for urolithiasis vs. MSK related pain. R/o PNA. Will also consider AAA in setting of R sided flank pain and multiple risk factors. Differential also includes cystitis, pyelonephritis, colitis, appendicitis. ED Course: 03/05/18 17:04 CBC, CMP, PT/INR, UA, Urine Cx. EKG, CXR 03/05/18 18:45 UA: 3+ Blood, 2+ LA. 19 WBC, 8 RBC. CBC, CMP: Unremarkable *DC/Admit/Observation/Transfer Diagnosis at time of Disposition: Right flank pain - Discharge Dispostion Condition at time of disposition: Stable - Referrals Referrals: Kathleen Perez MD [Primary Care Provider] - - Patient Instructions Printed Discharge Instructions: DI for Flank Pain Additional Instructions: Please return to the emergency department with any new or worsening symptoms or concerns. Please follow up with your primary care physician within 72 hours. - Post Discharge Activity - Attestations Physician Attestion: 03/05/18 18:46 I attest to the information provided in this note.
[2018-03-05 17:20] LABS: URINE APPEARANCE CLEAR; URINE BILIRUBIN NEGATIVE (<2.0 mg/dL); URINE COLOR LTYELLOW; URINE GLUCOSE (UA) NEGATIVE (NEGATIVE); URINE KETONE NEGATIVE (NEGATIVE); URINE NITRITE NEGATIVE (NEGATIVE); URINE PROTEIN NEGATIVE (NEGATIVE); URINE UROBILINOGEN NEGATIVE mg/dL (0.2-1.0)
[2018-03-05 17:23] LABS: URINE LEUK ESTERASE 2+ (NEGATIVE)
[2018-03-05 17:28] LABS: EPI CELLS RARE /HPF (FEW); URINE MUCUS RARE
[2018-03-05 17:43] LABS: BASO % 1.1 % (0-2.0); EOS % 1.2 % (0-4.5); HEMATOCRIT 43.4 % (32.4-45.2); HEMOGLOBIN 14.4 GM/dL (10.7-15.3); LYMPH % 12.6 % (8-40); MCH 29.2 pg (25.7-33.7); MCHC 33.2 g/dl (32.0-36.0); MEAN CELL VOLUME 87.9 fl (80-96); MEAN PLT VOLUME 7.2 fl (7.5-11.1); MONO % 7.5 % (3.8-10.2); NEUT % 77.6 % (42.8-82.8); PLATELET COUNT 281 K/MM3 (134-434); RBC 4.94 M/mm3 (3.60-5.2); RDW 14.3 % (11.6-15.6); WHITE BLOOD COUNT 9.6 K/mm3 (4.0-10.0)
[2018-03-05 18:09] LABS: INR 1.05 (0.82-1.09); PROTHROMBIN TIME (PATIENT) 11.9 SEC (9.7-13.0)
[2018-03-05 18:25] LABS: ALBUMIN 4.2 g/dl (3.4-5.0); ANION GAP 10 (8-16); BLOOD UREA NITROGEN 8 mg/dL (7-18); CHLORIDE 106 mmol/L (98-107); CO2 27 mmol/L (21-32); CREATININE 0.8 mg/dL (0.55-1.02); GLUCOSE,RANDOM 133 mg/dL (74-106); POTASSIUM 3.7 mmol/L (3.5-5.1); SGOT/AST 37 U/L (15-37); SGPT/ALT 34 U/L (12-78); SODIUM 143 mmol/L (136-145)
[2018-03-05 18:27] LABS: ALK PHOS 106 U/L (45-117); BILIRUBIN,TOTAL 0.8 mg/dL (0.2-1.0)
--- NOTE | 2018-03-05 18:57 | PDOC ---
Attending Attestation - Resident Resident Name: Dhiraj Gleason - ED Attending Attestation I have performed the following: I have examined & evaluated the patient, The case was reviewed & discussed with the resident, I agree w/resident's findings & plan, Exceptions are as noted - HPI HPI: 03/05/18 18:56 The patient is a 72 year old female with significant PMH of renal colic s/p lithotripsy, DM, HTN, HLD, DVT, and PE who presents to the emergency department with unremitting right sided flank pain since earlier today. The patient reports that she began to experience her right sided flank pain this morning at 10:45 after passing a bowel movement. The patient describes her right sided flank pain as cramping with a 7/10 severity and is worsened with movement. The patient reports taking 2 Tylenol with no relief of symptoms. She reports associated dysuria and is concerned she has a UTI. She denies chest pain, shortness of breath, headache and dizziness.The patient denies fever, chills, nausea, vomit, diarrhea ,constipation. She denies trauma to the area. The patient denies any other complaints. - Physicial Exam PE: 03/05/18 19:05 GENERAL: Awake, alert, and fully oriented, in no acute distress HEAD: No signs of trauma EYES: PERRLA, EOMI, sclera anicteric, conjunctiva clear ENT: Auricles normal inspection, hearing grossly normal, nares patent, oropharynx clear without exudates. Moist mucosa NECK: Normal ROM, supple, no lymphadenopathy, JVD, or masses LUNGS: Breath sounds equal, clear to auscultation bilaterally. No wheezes, and no crackles HEART: Regular rate and rhythm, normal S1 and S2, no murmurs, rubs or gallops ABDOMEN: Soft, nontender, normoactive bowel sounds. No guarding, no rebound. No masses. : +R flank ttp, no CVAT. EXTREMITIES: Normal range of motion, no edema. No clubbing or cyanosis. No cords, erythema, or tenderness NEUROLOGICAL: Normal speech, cranial nerves intact, negative pronator drift, 5/ 5 strength in all 4 extremities, normal sensation to light touch in all 4 extremities, normal cerebellar exam, normal gait, normal reflexes and tone SKIN: Warm, Dry, normal turgor, no rashes or lesions noted. - Medical Decision Making 03/05/18 19:05 72yo F MMP including renal colic presents to the ED with sudden onset R flank pain a/w dysuria. Vitals unremarkable. Exam with R flank ttp. DDx includes but not limited to renal colic vs UTI vs MSK pain. Thus far, labs wnl. UA consistent with UTI. CTAP pending. Pt signed out to overnight attending for further dispo/mgmt.
[2018-03-05] MEDS ORDERED: CEFTRIAXONE 1,000 MG in DEXTROSE 5%-WATER - 50 ML IVPB ONE (19:07)
[2018-03-05] MEDS ORDERED: ACETAMINOPHEN 1000 MG/100 ML VIAL (NON FORMULARY) IVPB ONE (19:11)
[2018-03-05] MEDS ORDERED: CEFTRIAXONE 1 GM/50 ML BAG ONE (19:11)
[2018-03-05] MEDS ORDERED: ACETAMINOPHEN INJECTION 100 ML IVPB ONE (20:05)
--- NOTE | 2018-03-05 20:49 | PDOC ---
*Physical Exam - Vital Signs Last Vital Signs Temp Pulse Resp BP Pulse Ox 98.6 F 87 18 147/88 98 03/05/18 14:18 03/05/18 14:18 03/05/18 14:18 03/05/18 14:18 03/05/18 14:18 - Physical Exam Comments: 03/05/18 21:14 General Appearance: Nourished. No Apparent Distress HEENT: No Pharyngeal Erythema, Tonsillar Exudate, Tonsillar Erythema Neck: No Cervical Lymphadenopathy Respiratory/Chest: Lungs Clear, Normal Breath Sounds. No Crackles, Rales, Rhonchi, Wheezing Cardiovascular: Regular Rhythm, Regular Rate. No Murmur, Gallops, Rubs Gastrointestinal/Abdominal: Normal Bowel Sounds, Soft. No Guarding, Rebound, Tenderness Musculoskeletal: No CVA Tenderness Extremity: Normal Capillary Refill Integumentary: Normal Color, Dry, Warm Neurologic: Fully Oriented, Alert, Normal Mood/Affect, Normal Response, ED Treatment Course - LABORATORY CBC & Chemistry Diagram: 03/05/18 17:35 03/05/18 17:35 - ADDITIONAL ORDERS Additional order review: Laboratory Results 03/05/18 03/05/18 03/05/18 17:40 17:35 17:35 PT with INR 11.90 INR 1.05 Sodium Potassium Chloride Carbon Dioxide Anion Gap BUN Creatinine Creat Clearance w eGFR Random Glucose Calcium Total Bilirubin AST ALT Alkaline Phosphatase Creatine Kinase 62 Troponin I < 0.02 Total Protein Albumin Lipase Urine Color Urine Appearance Urine pH Ur Specific [place] Urine Protein Urine Glucose (UA) Urine Ketones Urine Blood Urine Nitrite Urine Bilirubin Urine Urobilinogen Ur Leukocyte Esterase Urine WBC (Auto) Urine RBC (Auto) Ur Epithelial Cells Urine Mucus Blood Type A POSITIVE Antibody Screen Negative 03/05/18 03/05/18 03/05/18 17:35 17:35 16:50 PT with INR INR Sodium 143 Potassium 3.7 Chloride 106 Carbon Dioxide 27 Anion Gap 10 BUN 8 Creatinine 0.8 Creat Clearance w eGFR > 60 Random Glucose 133 H Calcium 9.0 Total Bilirubin 0.8 D AST 37 ALT 34 Alkaline Phosphatase 106 Creatine Kinase Troponin I Total Protein 8.0 Albumin 4.2 Lipase 83 Urine Color Ltyellow Urine Appearance Clear Urine pH 6.0 Ur Specific [place] 1.006 Urine Protein Negative Urine Glucose (UA) Negative Urine Ketones Negative Urine Blood 3+ H Urine Nitrite Negative Urine Bilirubin Negative Urine Urobilinogen Negative Ur Leukocyte Esterase 2+ H Urine WBC (Auto) 19 Urine RBC (Auto) 8 Ur Epithelial Cells Rare Urine Mucus Rare Blood Type Antibody Screen 03/05/18 17:35 RBC 4.94 D MCV 87.9 MCHC 33.2 RDW 14.3 MPV 7.2 L Neutrophils % 77.6 Lymphocytes % 12.6 D Monocytes % 7.5 Eosinophils % 1.2 Basophils % 1.1 - Medications Given in the ED: ED Medications Discontinued Medications Generic Name Dose Route Start Last Admin Trade Name Holly PRN Reason Stop Dose Admin Acetaminophen 1,000 mg 03/05/18 19:11 03/05/18 20:21 Ofirmev Injection - IVPB 03/05/18 19:12 1,000 mg ONCE ONE Administration Ceftriaxone Sodium 1,000 mg/ 50 mls @ 100 mls/hr 03/05/18 19:07 03/05/18 20: 16 Dextrose IVPB 03/05/18 19:36 100 mls/hr ONCE ONE Administration Progress Note - Progress Note Progress Note: The patient is a 72 year old female with multiple medical problems and a history of kidney stones on the left require lithotripsy who presents for evaluation of right flank pain. Patient is pending a CT to evaluate for nephrolethiasis. Medical Decision Making - Medical Decision Making 03/05/18 21:20 CT abdomen pelvis demonstrates a 5.5mm obstructive stone on the right side as preliminarily read by our front clerk radiologist. The patient will require admission for further management and iv antibiotics at this time. We discussed the case with the hospitalist team who accepted the patient for admission. We initially discussed the case with Dr. Muniz, however the patient informed us that although she has seen Dr. Muniz in the past, she currently would like to see Dr. Chip Krueger. We will discuss the case with Dr. Chip Krueger and inform Dr. Muniz of the change in consultation. *DC/Admit/Observation/Transfer Diagnosis at time of Disposition: Right flank pain, Obstructive uropathy, UTI (urinary tract infection) - Discharge Dispostion Condition at time of disposition: Stable Decision to Admit order: Yes - Referrals Referrals: Kathleen Perez MD [Primary Care Provider] - - Patient Instructions Printed Discharge Instructions: DI for Flank Pain Additional Instructions: Please return to the emergency department with any new or worsening symptoms or concerns. Please follow up with your primary care physician within 72 hours. - Post Discharge Activity
[2018-03-05] MEDS ORDERED: CEFTRIAXONE 1 GM in DEXTROSE 5%-WATER - 100 ML IVPB ONE (20:53)
[2018-03-05] MEDS ORDERED: KETOROLAC TROMETHAMINE 15 MG/ML VIAL IVPUSH PRN (21:23)
[2018-03-05] MEDS ORDERED: morphine CARPU-JECT 2 MG/1 ML DISP.SYRIN IVPUSH PRN (21:23)
--- NOTE | 2018-03-05 21:25 | PN ---
Teaching Attending Note Name of Resident: Gildardo Bryant ATTENDING PHYSICIAN STATEMENT I saw and evaluated the patient. I reviewed the resident's note and discussed the case with the resident. I agree with the resident's findings and plan as documented. SUBJECTIVE: Patient is a 72 year old woman with chief complaint of right flank pain and dysuria for one day. She has a PMH of renal colic s/p lithotripsy, DM, HTN, HLD , DVT, and PE. Despite multiple episodes of kidney stone since 2013, she has never had a workup to search for her risk factors for kidney stones. She is also not claer as to why she is not on anticoagulation for PE/DVT. In the ER CT scan without contrast showed an obstructing right kidney stone and she has features of UTI OBJECTIVE: Alert and syas pain is well controlled. Obese. Vital Signs Period Temp Pulse Resp BP Sys/Arita Pulse Ox Last 24 Hr 98.6 F 87 18 147/88 98 HEENT: No Jaundice, eye redness or discharge, PERRLA, EOMI. Normocephalic, atraumatic. External ears are normal and hearing is grossly intact. No nasal discharge. Neck: Supple, nontender. No palpable adenopathy or thyromegaly. No JVD Chest: Good effort. Clear to auscultation and percussion. Heart: Regular. No S3, rub or murmur Abdomen: Not distended, soft, nontender and no HSM. No right flank tenderness. No rebound or guarding. Normoactive bowel sounds. Ext: Peripheral pulses intact. No leg edema. Skin: Warm and dry. No petechiae, rash or ecchymosis. Neuro: Alert. Oriented x3. CN 2-12 grossly intact. Sensation grossly intact in all four extremities and DTR are symmetric. Home Medications Medication Instructions Recorded Simvastatin 20 mg PO HS 05/02/14 metFORMIN HCL [Glucophage -] 500 mg PO BID 05/02/14 Lisinopril [Prinivil] 20 mg PO DAILY 04/17/15 Aspirin [Herminio Chewable Aspirin] 81 mg PO DAILY 12/06/16 Cyanocobalamin (Vitamin B-12) 1,000 mcg PO DAILY 12/06/16 [Vitamin B-12] Sertraline HCl [Zoloft -] 100 mg PO DAILY 12/06/16 Docusate Sodium [Colace -] 100 mg PO TID #90 cap 01/06/17 Laboratory Results - last 24 hr 03/05/18 03/05/18 03/05/18 16:50 17:35 17:35 WBC 9.6 D RBC 4.94 D Hgb 14.4 D Hct 43.4 D MCV 87.9 MCH 29.2 MCHC 33.2 RDW 14.3 Plt Count 281 D MPV 7.2 L Neutrophils % 77.6 Lymphocytes % 12.6 D Monocytes % 7.5 Eosinophils % 1.2 Basophils % 1.1 Nucleated RBC % 0 PT with INR INR Sodium Potassium Chloride Carbon Dioxide Anion Gap BUN Creatinine Creat Clearance w eGFR Random Glucose Calcium Total Bilirubin AST ALT Alkaline Phosphatase Creatine Kinase Troponin I Total Protein Albumin Lipase 83 Urine Color Ltyellow Urine Appearance Clear Urine pH 6.0 Ur Specific [place] 1.006 Urine Protein Negative Urine Glucose (UA) Negative Urine Ketones Negative Urine Blood 3+ H Urine Nitrite Negative Urine Bilirubin Negative Urine Urobilinogen Negative Ur Leukocyte Esterase 2+ H Urine WBC (Auto) 19 Urine RBC (Auto) 8 Ur Epithelial Cells Rare Urine Mucus Rare Blood Type Antibody Screen 03/05/18 03/05/18 03/05/18 17:35 17:35 17:35 WBC RBC Hgb Hct MCV MCH MCHC RDW Plt Count MPV Neutrophils % Lymphocytes % Monocytes % Eosinophils % Basophils % Nucleated RBC % PT with INR 11.90 INR 1.05 Sodium 143 Potassium 3.7 Chloride 106 Carbon Dioxide 27 Anion Gap 10 BUN 8 Creatinine 0.8 Creat Clearance w eGFR > 60 Random Glucose 133 H Calcium 9.0 Total Bilirubin 0.8 D AST 37 ALT 34 Alkaline Phosphatase 106 Creatine Kinase 62 Troponin I < 0.02 Total Protein 8.0 Albumin 4.2 Lipase Urine Color Urine Appearance Urine pH Ur Specific [place] Urine Protein Urine Glucose (UA) Urine Ketones Urine Blood Urine Nitrite Urine Bilirubin Urine Urobilinogen Ur Leukocyte Esterase Urine WBC (Auto) Urine RBC (Auto) Ur Epithelial Cells Urine Mucus Blood Type Antibody Screen 03/05/18 17:40 WBC RBC Hgb Hct MCV MCH MCHC RDW Plt Count MPV Neutrophils % Lymphocytes % Monocytes % Eosinophils % Basophils % Nucleated RBC % PT with INR INR Sodium Potassium Chloride Carbon Dioxide Anion Gap BUN Creatinine Creat Clearance w eGFR Random Glucose Calcium Total Bilirubin AST ALT Alkaline Phosphatase Creatine Kinase Troponin I Total Protein Albumin Lipase Urine Color Urine Appearance Urine pH Ur Specific [place] Urine Protein Urine Glucose (UA) Urine Ketones Urine Blood Urine Nitrite Urine Bilirubin Urine Urobilinogen Ur Leukocyte Esterase Urine WBC (Auto) Urine RBC (Auto) Ur Epithelial Cells Urine Mucus Blood Type A POSITIVE Antibody Screen Negative Current Medications Generic Name Dose Route Start Last Admin Trade Name Freq PRN Reason Stop Dose Admin Aspirin 81 mg 03/06/18 10:00 Asa - PO DAILY [facility] Docusate Sodium 100 mg 03/06/18 06:00 Colace - PO TID [facility] Heparin Sodium (Porcine) 5,000 unit 03/06/18 02:00 Heparin - SQ Q8H-IV KARLA Sodium Chloride 1,000 mls @ 100 mls/hr 03/05/18 21:30 03/05/18 21:56 Normal Saline - IV 03/06/18 07:29 100 mls/hr ASDIR KARLA Administration Ceftriaxone Sodium 1 gm/ 100 mls @ 200 mls/hr 03/06/18 10:00 Dextrose IVPB DAILY [facility] Protocol Insulin Aspart 1 vial 03/05/18 22:00 Novolog Vial Sliding Scale - SQ ACHS [facility] Protocol Ketorolac Tromethamine 15 mg 03/05/18 21:23 Toradol Injection - IVPUSH 03/10/18 21:22 Q6H PRN PAIN LEVEL 4 - 6 Lisinopril 20 mg 03/06/18 10:00 Prinivil PO DAILY [facility] Non-Formulary Medication 1,000 mcg 03/06/18 10:00 Cyanocobalamin (Vitamin B-12) [Vitamin B-12] PO DAILY [facility] Non-Formulary Medication 100 mg 03/06/18 10:00 Sertraline Hcl [Zoloft -] PO DAILY [facility] Non-Formulary Medication 20 mg 03/06/18 22:00 Simvastatin [Simvastatin] PO HS KARLA Tramadol HCl 50 mg 03/05/18 22:02 Ultram - PO Q6H PRN PAIN LEVEL 7 - 10 ASSESSMENT AND PLAN: 1. Right obstructing kidney stone with UTI - Patient is being admitted as an inpatient. Will treat with PO tramadol PRN for pain, IV NS at 50 ml/hour and Rocephin 1gm IV q 24 hours for UTI pending culture report. Upon discharge will refer to sample cutter for comprehensive work up to search for her risk factor for stone formation including 24 hour urine collection for uric acid, calcium, oxalate, citrate, sodium,; etc. Urology consult has been requested and she is NPO in case urology wants to do a procedure tomorrow am. 2. Remote DVT/PE - Will contact her PCP to clarify why she is not on anticoagulation. 3. DM - Do sliding scale insulin coverage. 4. HTN - Adjust her home medications to attain BP <130/80 5. DVT prophylaxis - Heparin 5000u sq tid 6. Advance directives - Full code
[2018-03-05] MEDS ORDERED: SODIUM CHLORIDE 1,000 ML IV SCH (21:30)
--- NOTE | 2018-03-05 21:32 | HP ---
CHIEF COMPLAINT: R flank pain HISTORY OF PRESENT ILLNESS: 72 year old female with a hx of hypertension, diabetes, and renal stones, HLD, hx of LE DVT presented to the hospital for R sided flank pain after having a BM at 11am this morning. She has a history of frequent renal stones, stating that she had several (4-5) between the years [id number] and a few more several years prior. Also endorses burning on urination for the last several days. Denies chest pain, SOB, nausea, vomiting, diarrhea, fevers, chills. ER course was notable for: (1) UA + LE and WBC 19 (2) (3) PAST MEDICAL HISTORY: Hypertension Diabetes Renal stones Hyperlipidemia Hx of DVT PAST SURGICAL HISTORY: cholecystectomy Social History: Smoking: never Alcohol: never Drugs: never Allergies Dilaudid - dizziness HOME MEDICATIONS: Home Medications Medication Instructions Recorded Simvastatin 20 mg PO HS 05/02/14 metFORMIN HCL [Glucophage -] 500 mg PO BID 05/02/14 Lisinopril [Prinivil] 20 mg PO DAILY 04/17/15 Aspirin [Herminio Chewable Aspirin] 81 mg PO DAILY 12/06/16 Cyanocobalamin (Vitamin B-12) 1,000 mcg PO DAILY 12/06/16 [Vitamin B-12] Sertraline HCl [Zoloft -] 100 mg PO DAILY 12/06/16 Docusate Sodium [Colace -] 100 mg PO TID #90 cap 01/06/17 REVIEW OF SYSTEMS CONSTITUTIONAL: Absent: fever, chills, diaphoresis, generalized weakness, malaise, loss of appetite, weight change HEENT: Absent: rhinorrhea, nasal congestion, throat pain, throat swelling, difficulty swallowing, mouth swelling, ear pain, eye pain, visual changes CARDIOVASCULAR: Absent: chest pain, syncope, palpitations, irregular heart rate, lightheadedness , peripheral edema RESPIRATORY: Absent: cough, shortness of breath, dyspnea with exertion, orthopnea, wheezing, stridor, hemoptysis GASTROINTESTINAL: Absent: abdominal pain, abdominal distension, nausea, vomiting, diarrhea, constipation, melena, hematochezia GENITOURINARY: Absent: dysuria, frequency, urgency, hesitancy, hematuria, flank pain, genital pain MUSCULOSKELETAL: Absent: myalgia, arthralgia, joint swelling, back pain, neck pain SKIN: Absent: rash, itching, pallor HEMATOLOGIC/IMMUNOLOGIC: Absent: easy bleeding, easy bruising, lymphadenopathy, frequent infections ENDOCRINE: Absent: unexplained weight gain, unexplained weight loss, heat intolerance, cold intolerance NEUROLOGIC: Absent: headache, focal weakness or paresthesias, dizziness, unsteady gait, seizure, mental status changes, bladder or bowel incontinence PSYCHIATRIC: Absent: anxiety, depression, suicidal or homicidal ideation, hallucinations. PHYSICAL EXAMINATION Vital Signs - 24 hr 03/05/18 14:18 Temperature 98.6 F Pulse Rate 87 Respiratory 18 Rate Blood Pressure 147/88 O2 Sat by Pulse 98 Oximetry (%) GENERAL: A&Ox3, no acute distress EYES: PERRLA, EOMI ENT: Moist mucus membranes NECK: No JVD LUNGS: CTA, no wheezes HEART: RRR, 3/6 systolic murmur appreciated ABDOMEN: Obese, Soft, nontender, BS present MUSCULOSKELETAL: No CVA Tenderness EXTREMITIES: 2+ pulses, no edema. NEUROLOGICAL: Cranial nerves II-XII intact. Laboratory Results - last 24 hr 03/05/18 03/05/18 03/05/18 16:50 17:35 17:35 WBC 9.6 D RBC 4.94 D Hgb 14.4 D Hct 43.4 D MCV 87.9 MCH 29.2 MCHC 33.2 RDW 14.3 Plt Count 281 D MPV 7.2 L Neutrophils % 77.6 Lymphocytes % 12.6 D Monocytes % 7.5 Eosinophils % 1.2 Basophils % 1.1 Nucleated RBC % 0 PT with INR INR Sodium Potassium Chloride Carbon Dioxide Anion Gap BUN Creatinine Creat Clearance w eGFR Random Glucose Calcium Total Bilirubin AST ALT Alkaline Phosphatase Creatine Kinase Troponin I Total Protein Albumin Lipase 83 Urine Color Ltyellow Urine Appearance Clear Urine pH 6.0 Ur Specific [place] 1.006 Urine Protein Negative Urine Glucose (UA) Negative Urine Ketones Negative Urine Blood 3+ H Urine Nitrite Negative Urine Bilirubin Negative Urine Urobilinogen Negative Ur Leukocyte Esterase 2+ H Urine WBC (Auto) 19 Urine RBC (Auto) 8 Ur Epithelial Cells Rare Urine Mucus Rare Blood Type Antibody Screen 03/05/18 03/05/18 03/05/18 17:35 17:35 17:35 WBC RBC Hgb Hct MCV MCH MCHC RDW Plt Count MPV Neutrophils % Lymphocytes % Monocytes % Eosinophils % Basophils % Nucleated RBC % PT with INR 11.90 INR 1.05 Sodium 143 Potassium 3.7 Chloride 106 Carbon Dioxide 27 Anion Gap 10 BUN 8 Creatinine 0.8 Creat Clearance w eGFR > 60 Random Glucose 133 H Calcium 9.0 Total Bilirubin 0.8 D AST 37 ALT 34 Alkaline Phosphatase 106 Creatine Kinase 62 Troponin I < 0.02 Total Protein 8.0 Albumin 4.2 Lipase Urine Color Urine Appearance Urine pH Ur Specific [place] Urine Protein Urine Glucose (UA) Urine Ketones Urine Blood Urine Nitrite Urine Bilirubin Urine Urobilinogen Ur Leukocyte Esterase Urine WBC (Auto) Urine RBC (Auto) Ur Epithelial Cells Urine Mucus Blood Type Antibody Screen 03/05/18 17:40 WBC RBC Hgb Hct MCV MCH MCHC RDW Plt Count MPV Neutrophils % Lymphocytes % Monocytes % Eosinophils % Basophils % Nucleated RBC % PT with INR INR Sodium Potassium Chloride Carbon Dioxide Anion Gap BUN Creatinine Creat Clearance w eGFR Random Glucose Calcium Total Bilirubin AST ALT Alkaline Phosphatase Creatine Kinase Troponin I Total Protein Albumin Lipase Urine Color Urine Appearance Urine pH Ur Specific [place] Urine Protein Urine Glucose (UA) Urine Ketones Urine Blood Urine Nitrite Urine Bilirubin Urine WBC (Auto) Urine RBC (Auto) Ur Epithelial Cells Urine Mucus Blood Type A POSITIVE Antibody Screen Negative ASSESSMENT/PLAN: 72 year old female with a hx of hypertension, diabetes, and renal stones, HLD, hx of LE DVT presents with R sided flank pain and admitted for nephrolithiasis #Right Sided Nephrolithiasis: patient has clinically improved since initial presentation -continue IVF @ 100cc/hr -toradol/tramadol for pain, however patient is well controlled -Uro consult Dr. Calhoun appreciated #Urinary Tract Infection: patient has dysuria and has + UA -continue ceftriaxone 1gm QD, received 1 dose in ED and will get next dose tomorrow #Hypertension: not hypertensive -continue lisinopril #Diabetes: stable, on metformin at home -BGMs -ISS ACHS -hold other diabetic medications #Hyperlipidemia -continue home atorvastatin 10mg PO HS -continue ASA 81mg #FEN NS @ 100cc/hr Replete lytes as necessary in AM NPO until urologic evaluation #Prophylaxis -heparin prophylaxis #Disposition -admit med surg Visit type - Emergency Visit Emergency Visit: Yes ED Registration Date: 03/05/18 Care time: The patient presented to the Emergency Department on the above date and was hospitalized for further evaluation of their emergent condition. - New Patient This patient is new to me today: No - Critical Care Critical Care patient: No Hospitalist Screening - Colonoscopy Questionnaire Colonoscopy Questionnaire: Colonoscopy Questionnaire - Patient: 50 - 75 years old and never had a screening colonoscopy: Unknown History of colon or rectal polyps, or CA: Unknown History of IBD, Crohn's disease or UC: Unknown History of abdominal radiation therapy as a child: Unknown - Relative: 1 with colon or rectal CA, or polyps at age 60 or younger: Unknown Colon or rectal CA diagnosed at age 45 or younger: Unknown Multiple relatives with colon or rectal CA: Unknown - Outcome: Screening Result: Negative Screen
[2018-03-05] MEDS ORDERED: traMADol HCL 50 MG TABLET PO PRN (22:02)
[2018-03-05] MEDS ORDERED: INSULIN (NOVOLOG) ASPART 100 UNITS/ML 10ML VIAL ONE (23:27)
[2018-03-05] MEDS: INSULIN SLIDING SCALE (NOVOLOG) 1 VIAL SQ SCH ×2 (23:28→23:37)
[2018-03-06] MEDS: HEPARIN NA (PORCINE) 5,000 UNITS/ML 1ML VIAL SQ SCH ×3 (02:14→17:06)
[2018-03-06] MEDS: DOCUSATE SODIUM 100 MG CAPSULE (FP) PO SCH ×3 (05:42→21:47)
[2018-03-06] MEDS: INSULIN SLIDING SCALE (NOVOLOG) 1 VIAL SQ SCH ×4 (06:01→21:53)
[2018-03-06 07:40] LABS: HEMATOCRIT 36.5 % (32.4-45.2); HEMOGLOBIN 12.4 GM/dL (10.7-15.3); MCHC 33.9 g/dl (32.0-36.0); MEAN CELL VOLUME 88.4 fl (80-96); MEAN PLT VOLUME 7.2 fl (7.5-11.1); PLATELET COUNT 224 K/MM3 (134-434); RBC 4.13 M/mm3 (3.60-5.2); RDW 14.6 % (11.6-15.6); WHITE BLOOD COUNT 6.1 K/mm3 (4.0-10.0)
[2018-03-06 07:54] LABS: ANION GAP 5 (8-16); BLOOD UREA NITROGEN 8 mg/dL (7-18); CALCIUM 8.3 mg/dL (8.5-10.1); CHLORIDE 110 mmol/L (98-107); CO2 30 mmol/L (21-32); CREATININE 0.7 mg/dL (0.55-1.02); GLUCOSE,RANDOM 161 mg/dL (74-106); MAGNESIUM 2.1 mg/dL (1.8-2.4); PHOSPHOROUS 3.9 mg/dL (2.5-4.9); POTASSIUM 3.9 mmol/L (3.5-5.1); SODIUM 145 mmol/L (136-145)
[2018-03-06] MEDS ORDERED: LISINOPRIL 10 MG TABLET (FP) PO SCH (10:00)
[2018-03-06] MEDS ORDERED: CEFTRIAXONE 1 GM in DEXTROSE 5%-WATER - 100 ML IVPB SCH (10:00)
[2018-03-06] MEDS ORDERED: CYANOCOBALAMIN 1,000 MCG TABLET (FP) PO SCH (10:00)
[2018-03-06] MEDS ORDERED: SERTRALINE HCL 50 MG TABLET (FP) PO SCH (10:00)
[2018-03-06] MEDS ORDERED: ASPIRIN 81 MG CHEWABLE TABLETS PO SCH (10:00)
[2018-03-06] MEDS ORDERED: PT OWN MED DRAWER 7, Y5N ONE ×2 (11:20→18:55)
[2018-03-06] MEDS ORDERED: SODIUM CHLORIDE 1,000 ML IV SCH (11:30)
--- NOTE | 2018-03-06 11:37 | PN ---
Teaching Attending Note Name of Resident: Osvaldo Hull ATTENDING PHYSICIAN STATEMENT I saw and evaluated the patient. I reviewed the resident's note and discussed the case with the resident. I agree with the resident's findings and plan as documented. SUBJECTIVE: c/o R flank pain. stated that she developed flank pain and then having pain on urination. said her symptoms did resolve after her abx course last month but can not recall the medication. states pain is controlled with medication. denies CP, SOb, fever, chills, N/V/C/D OBJECTIVE: Last Vital Signs Temp Pulse Resp BP Pulse Ox 98.3 F 74 20 152/91 97 03/06/18 10:00 03/06/18 10:00 03/06/18 10:00 03/06/18 10:00 03/06/18 09:00 General NAD CV S1 S2 RRR no murmur/rub/gallop lungs CTA B/L no wheezing/rales/rhonchi Abdomen soft NT/ND obese R CVA tenderness Extremities no pedal edema ASSESSMENT AND PLAN: 72yo F with PMH renal colic s/p lithotripsy, DM, HTN, dyslipdemia, DVT/PE not on a/c presented tot he Er with R flank pain and dysuria was treated in January 2018 for UTI with 2 course of abx. (unclear which ones) was found to have an obstructing R renal stone 1. R proximal ureteral stone with mild hydro- improved with pain medication. plan for stent today by urology. cont IVF. pain and nause control. further recommendations per urology 2. UTI- will place call out to urology to see if Ucx was done at that time and what she was treated with. On ceftriaxone day1. will cont for now. f/u Cx 3. DM- hold oral agents. BGM and iss 4. HTN- slightly above goal likely due to pain. cont home regimen 5. dyslipidemia- statin 6. 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 unclear if etiology was discovered but claims she had workup done 7. DVT ppx- hep sq
[2018-03-06] MEDS ORDERED: CEFTRIAXONE 1 GM in DEXTROSE 5%-WATER - 50 ML IVPB SCH (11:45)
[2018-03-06] MEDS ORDERED: DEXTROSE 5%-WATER - 50 ML IVPB ONE (11:55)
[2018-03-06] MEDS ORDERED: cefTRIAXone SODIUM 1 GM VIAL ONE (11:55)
[2018-03-06] MEDS ORDERED: CEFTRIAXONE 1 GM in SODIUM CHLORIDE 100 ML IVPB SCH (12:00)
[2018-03-06] MEDS ORDERED: ONDANSETRON 4 MG/2 ML VIAL IVPUSH PRN ×4 (13:13→18:23)
--- NOTE | 2018-03-06 13:40 | EKG ---
Test Reason : Blood Pressure : / mmHG Vent. Rate : 082 BPM Atrial Rate : 082 BPM P-R Int : 176 ms QRS Dur : 086 ms QT Int : 402 ms P-R-T Axes : 068 002 041 degrees QTc Int : 469 ms NORMAL SINUS RHYTHM NORMAL ECG WHEN COMPARED WITH ECG OF 29-DEC-2016 21:46, COMPARED TO EKG NO SIGNIFICANT CHANGE IS FOUND Confirmed by MD Franci, Junaid ([id number]) on 03/06/2018 1:40:27 PM Referred By: Confirmed By:Junaid Koroma MD
[2018-03-06] MEDS ORDERED: PROPOFOL 20 ML ONE ×2 (16:58→17:27)
[2018-03-06] MEDS ORDERED: LIDOCAINE HCL/PF 2% SDV 5ML VIAL ONE (16:58)
[2018-03-06] MEDS ORDERED: DEXAMETHASONE SOD PHOSPHATE 4 MG/1 ML VIAL ONE (16:59)
[2018-03-06] MEDS ORDERED: KETOROLAC TROMETHAMINE 30 MG/1 ML VIAL ONE (16:59)
[2018-03-06] MEDS ORDERED: LACTATED RINGERS SOLUTION 1,000 ML IV SCH ×2 (17:45→18:23)
[2018-03-06] MEDS ORDERED: MIDAZOLAM HCL 2 MG/2 ML SINGLE DOSE VIAL ONE (17:51)
[2018-03-06] MEDS ORDERED: traMADol HCL 50 MG TABLET PO PRN (18:23)
--- NOTE | 2018-03-06 18:39 | OP ---
Operative Note - Note: Operative Date: 03/06/18 Pre-Operative Diagnosis: right ureteral stone Operation: cystoscopy/right retrograde pyelogram/right ureteroscopic laser lithotripsy and stone basketing with stent placement Findings: 8mm right ureteral stone obstructing upper ureter Post-Operative Diagnosis: Same as Pre-op Surgeon: Adolfo Calhoun Anesthesia: General Specimens Removed: ureteral stones Drains & Tubes with Location: 6fr/24cm right ureteral stent
[2018-03-06] MEDS: SODIUM CHLORIDE 1,000 ML IV SCH (18:40)
--- NOTE | 2018-03-06 18:49 | CONSULT ---
Consult - text type - Consultation Consultation Note: cc: uti with obstructing right ureteral stone hpi: patient with history of DM and htn with right hydroneprosis and infected urine. Patient was placed on rocephin. The patient complains of dysuria and nausea vomiting with chills and a reported low grade fever PE afeb abd-left CVAT ct scan reviewed discussed with patient x20 minutes risks and benefits including urosepsis and reviewed imp uti righ hydroureteronephrosis with renal and ureteral stones plan patient is emergently taken to the OR for stent placement
[2018-03-06] MEDS ORDERED: INSULIN (NOVOLOG) ASPART 100 UNITS/ML 10ML VIAL ONE (18:55)
[2018-03-06] MEDS: metFORMIN HCL 500 MG TABLET (FP) PO SCH (21:49)
[2018-03-06] MEDS ORDERED: ATORVASTATIN CA 10 MG TABLET (FP) PO SCH ×2 (22:00)
--- NOTE | 2018-03-06 22:57 | OP ---
DATE OF OPERATION: 03/06/2018 PREOPERATIVE DIAGNOSIS: Right obstructing ureteral stone with right hydroureteronephrosis with a urinary tract infection. POSTOPERATIVE DIAGNOSIS: Obstructing right ureteral stone. PROCEDURE: Cystoscopy, right retrograde pyelogram, right ureteroscopic laser lithotripsy, and right ureteral stone basketing and right ureteral stent placement. ATTENDING: Vonnie Alejandre MD ANESTHESIA: General. DESCRIPTION OF PROCEDURE: The patient was admitted to the hospital with a urinary tract infection and an obstructed right kidney. The patient has a history of diabetes mellitus and hypertension and is at high risk of sepsis. The patient is emergently taken to the operating room for a ureteral stent and possible stone basketing. The patient understands the risks and benefits of the procedure and undertakes those risks and benefits. The patient was brought to the operating room and placed in the supine position on the operating room table. She was given general anesthesia. The patient has been on Rocephin 1 g q.12 h. The patient is placed in the dorsal lithotomy position, prepped and draped in the usual sterile manner. Cystoscopy was performed and no evidence of stone in the bladder is noted. A retrograde pyelogram was performed and an upper ureteral filling defect was noted consistent with a stone. A wire was passed proximal to the stone and into the kidney under fluoroscopic visualization. A ureteroscopy was then performed and the stone is seen. It was impossible to remove this 8-mm plus stone with a stone basket due to its size and the risk of avulsion of the ureter. Laser lithotripsy utilizing the Holmium laser was performed and the stone was fragmented into multiple pieces. Stone basket was removed and multiple large remaining segments of the stone were removed and sent for analysis. At this point, the stent was removed. The patient's vital signs were stable throughout the procedure. A stent was subsequently placed utilizing the Seldinger technique under fluoroscopic and cystoscopic visualization. No complication was noted. DISPOSITION: The patient was to the recovery room. Patient will be observed overnight and monitored for signs of sepsis. VONNIE ALEJANDRE M.D. /[id number]
[2018-03-07] MEDS ORDERED: ACETAMINOPHEN 325 MG TABLET (FP) PO PRN (04:39)
[2018-03-07] MEDS: DOCUSATE SODIUM 100 MG CAPSULE (FP) PO SCH ×2 (05:52→14:30)
[2018-03-07] MEDS: HEPARIN NA (PORCINE) 5,000 UNITS/ML 1ML VIAL SQ SCH ×2 (05:53→14:30)
[2018-03-07] MEDS: SODIUM CHLORIDE 1,000 ML IV SCH (05:57)
[2018-03-07] MEDS: metFORMIN HCL 500 MG TABLET (FP) PO SCH (06:37)
[2018-03-07] MEDS: INSULIN SLIDING SCALE (NOVOLOG) 1 VIAL SQ SCH ×2 (06:38→13:53)
--- NOTE | 2018-03-07 07:32 | PN ---
Physical Exam: SUBJECTIVE: Patient seen and examined at bedside. Pt had her procedure last night. Feels well today. Had some abdominal cramping which resolved with one dose of tylenol. Has passed gas since procedure. OBJECTIVE: Vital Signs Period Temp Pulse Resp BP Sys/Arita Pulse Ox Last 24 Hr 97.9 F-98.9 F 65-99 18-20 130-156/66-91 96-98 GENERAL: The patient is awake, alert, and fully oriented, in no acute distress. HEAD: Normal with no signs of trauma. EYES: extraocular movements intact, sclera anicteric, conjunctiva clear. No ptosis. ENT: oropharynx clear without exudates, moist mucous membranes. NECK: Trachea midline, full range of motion, supple. LUNGS: Breath sounds equal, clear to auscultation bilaterally HEART: Regular rate and rhythm, S1, S2 with prominent 4/6 systolic murmur at Upper sternal border b/l, rub or gallop. ABDOMEN: Diastasis recti. Small quarter-sized umbilical hernia. Soft, nontender , nondistended, normoactive bowel sounds, no guarding, no rebound, no hepatosplenomegaly, no masses. EXTREMITIES: 2+ pulses, warm, well-perfused, no edema. NEUROLOGICAL: Cranial nerves II through XII grossly intact. Normal speech, gait not observed. PSYCH: Normal mood, normal affect. SKIN: Warm, dry, normal turgor, no rashes or lesions noted Laboratory Results - last 24 hr 03/06/18 03/06/18 03/06/18 06:00 06:00 06:00 WBC 6.1 D RBC 4.13 Hgb 12.4 D Hct 36.5 D MCV 88.4 MCH 30.0 MCHC 33.9 RDW 14.6 Plt Count 224 D MPV 7.2 L Sodium 145 Potassium 3.9 Chloride 110 H Carbon Dioxide 30 Anion Gap 5 L BUN 8 Creatinine 0.7 POC Glucometer Random Glucose 161 H Calcium 8.3 L Phosphorus 3.9 Magnesium 2.1 Blood Type A POSITIVE Antibody Screen Negative 03/06/18 03/06/18 03/06/18 12:09 16:26 21:46 WBC RBC Hgb Hct MCV MCH MCHC RDW Plt Count MPV Sodium Potassium Chloride Carbon Dioxide Anion Gap BUN Creatinine POC Glucometer 150 162 195 Random Glucose Calcium Phosphorus Magnesium Blood Type Antibody Screen 03/07/18 05:51 WBC RBC Hgb Hct MCV MCH MCHC RDW Plt Count MPV Sodium Potassium Chloride Carbon Dioxide Anion Gap BUN Creatinine POC Glucometer 165 Random Glucose Calcium Phosphorus Magnesium Blood Type Antibody Screen Active Medications Generic Name Dose Route Start Last Admin Trade Name Freq PRN Reason Stop Dose Admin Acetaminophen 650 mg 03/07/18 04:39 03/07/18 04:42 Tylenol - PO 650 mg Q4H PRN Administration PAIN LEVEL 1-5 Aspirin 81 mg 03/07/18 10:00 Asa - PO DAILY [facility] Atorvastatin Calcium 10 mg 03/06/18 22:00 03/06/18 21:48 Lipitor - PO 10 mg HS [facility] Administration Cyanocobalamin 1,000 mcg 03/07/18 10:00 Vitamin B12 - PO DAILY [facility] Docusate Sodium 100 mg 03/06/18 22:00 03/07/18 05:52 Colace - PO 100 mg TID KARLA Administration Heparin Sodium (Porcine) 5,000 unit 03/07/18 06:00 03/07/18 05:53 Heparin - SQ 5,000 unit TID [facility] Administration Ceftriaxone Sodium 1 gm/ 50 mls @ 100 mls/hr 03/07/18 10:00 Dextrose IVPB DAILY [facility] Protocol Sodium Chloride 1,000 mls @ 100 mls/hr 03/06/18 18:23 03/07/18 05:57 Normal Saline - IV 100 mls/hr ASDIR KARLA Administration Insulin Aspart 1 vial 03/06/18 22:00 03/07/18 06:38 Novolog Vial Sliding Scale - SQ 2 units ACHS KARLA Administration Protocol Lisinopril 40 mg 03/07/18 10:00 Prinivil PO DAILY [facility] Metformin HCl 500 mg 03/06/18 18:45 03/07/18 06:37 Glucophage - PO 500 mg BIDAC KARLA Administration Ondansetron HCl 4 mg 03/06/18 18:23 Zofran Injection IVPUSH Q8H PRN NAUSEA Sertraline HCl 100 mg 03/07/18 10:00 Zoloft - PO DAILY [facility] Tramadol HCl 50 mg 03/06/18 18:23 Ultram - PO Q6H PRN PAIN LEVEL 7 - 10 ASSESSMENT/PLAN:
[2018-03-07 07:41] LABS: BASO % 0.2 % (0-2.0); HEMATOCRIT 35.7 % (32.4-45.2); LYMPH % 9.4 % (8-40); MCH 29.9 pg (25.7-33.7); MCHC 33.6 g/dl (32.0-36.0); MEAN CELL VOLUME 88.9 fl (80-96); MEAN PLT VOLUME 7.4 fl (7.5-11.1); MONO % 7.2 % (3.8-10.2); NEUT % 83.2 % (42.8-82.8); PLATELET COUNT 243 K/MM3 (134-434); RBC 4.01 M/mm3 (3.60-5.2); RDW 14.6 % (11.6-15.6); WHITE BLOOD COUNT 7.6 K/mm3 (4.0-10.0)
[2018-03-07 08:10] LABS: CHLORIDE 109 mmol/L (98-107); POTASSIUM 3.8 mmol/L (3.5-5.1); SODIUM 143 mmol/L (136-145)
[2018-03-07 08:30] LABS: ALBUMIN 3.2 g/dl (3.4-5.0); ALK PHOS 87 U/L (45-117); ANION GAP 9 (8-16); BILIRUBIN,TOTAL 0.6 mg/dL (0.2-1.0); BLOOD UREA NITROGEN 12 mg/dL (7-18); CALCIUM 7.7 mg/dL (8.5-10.1); CO2 25 mmol/L (21-32); CREATININE 0.8 mg/dL (0.55-1.02); GLUCOSE,RANDOM 158 mg/dL (74-106); SGOT/AST 16 U/L (15-37); SGPT/ALT 24 U/L (12-78); TOT PROT 6.5 g/dl (6.4-8.2)
[2018-03-07] MEDS ORDERED: DEXTROSE 5%-WATER - 50 ML IVPB ONE (09:05)
[2018-03-07] MEDS ORDERED: cefTRIAXone SODIUM 1 GM VIAL ONE (09:05)
[2018-03-07 09:55] VITALS: BP 122/70
[2018-03-07] MEDS ORDERED: CYANOCOBALAMIN 1,000 MCG TABLET (FP) PO SCH (10:00)
[2018-03-07] MEDS ORDERED: LISINOPRIL 20 MG TABLET (FP) PO SCH ×2 (10:00)
[2018-03-07] MEDS ORDERED: SERTRALINE HCL 50 MG TABLET (FP) PO SCH (10:00)
[2018-03-07] MEDS ORDERED: CEFTRIAXONE 1 GM in DEXTROSE 5%-WATER - 50 ML IVPB SCH (10:00)
[2018-03-07] MEDS ORDERED: CEFTRIAXONE 1 GM in SODIUM CHLORIDE 100 ML IVPB SCH (10:00)
[2018-03-07] MEDS ORDERED: ASPIRIN 81 MG CHEWABLE TABLETS PO SCH (10:00)
--- NOTE | 2018-03-07 13:44 | PN ---
Teaching Attending Note Name of Resident: Osvaldo Hull ATTENDING PHYSICIAN STATEMENT I saw and evaluated the patient. I reviewed the resident's note and discussed the case with the resident. I agree with the resident's findings and plan as documented. SUBJECTIVE:has some mild pelvic cramping last night but has since resolved. pinkish tinged urine. denies CP, SOB, fever, chills, N/V/C/D OBJECTIVE: Last Vital Signs Temp Pulse Resp BP Pulse Ox 98.7 F 72 18 122/70 97 03/07/18 09:54 03/07/18 09:54 03/07/18 09:54 03/07/18 09:54 03/07/18 09:00 General NAD Abdomen soft NT/ND obese ASSESSMENT AND PLAN: 72yo F with PMH renal colic s/p lithotripsy, DM, HTN, dyslipdemia, DVT/PE not on a/c presented tot he Er with R flank pain and dysuria was treated in January 2018 for UTI with 2 course of abx. (unclear which ones) was found to have an obstructing R renal stone 1. R proximal ureteral stone with mild hydro-s/p cystoscopy with lithotripsy, basket removal and stent placement. pain now resolved. will need to f/u with urology in 1 week. 2. UTI- Ucx negative. would treat in light of having urology procedure. d/c on keflex to complete 1 week course. 3. DM- hold oral agents. BGM and iss 4. HTN- improved. cont home regimen 5. dyslipidemia- statin 6. 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 unclear if etiology was discovered but claims she had workup done 7. DVT ppx- hep sq 8. d/c home
[2018-03-07 14:06] VITALS: PULSE 63; TEMP 98.2
--- NOTE | 2018-03-07 17:20 | DS ---
Physical Exam: SUBJECTIVE: Patient seen and examined at bedside. Pt had her procedure last night. Feels well today. Had some abdominal cramping which resolved with one dose of tylenol. Has passed gas since procedure. OBJECTIVE: Vital Signs Period Temp Pulse Resp BP Sys/Arita Pulse Ox Last 24 Hr 98.1 F-98.9 F 63-99 18-20 122-148/66-86 96-98 PHYSICAL EXAM GENERAL: The patient is awake, alert, and fully oriented, in no acute distress. HEAD: Normal with no signs of trauma. EYES: extraocular movements intact, sclera anicteric, conjunctiva clear. No ptosis. ENT: oropharynx clear without exudates, moist mucous membranes. NECK: Trachea midline, full range of motion, supple. LUNGS: Breath sounds equal, clear to auscultation bilaterally HEART: Regular rate and rhythm, S1, S2 with prominent 4/6 systolic murmur at Upper sternal border b/l, rub or gallop. ABDOMEN: Diastasis recti. Small quarter-sized umbilical hernia. Soft, nontender , nondistended, normoactive bowel sounds, no guarding, no rebound, no hepatosplenomegaly, no masses. EXTREMITIES: 2+ pulses, warm, well-perfused, no edema. NEUROLOGICAL: Cranial nerves II through XII grossly intact. Normal speech, gait not observed. PSYCH: Normal mood, normal affect. SKIN: Warm, dry, normal turgor, no rashes or lesions noted LABS Laboratory Results - last 24 hr 03/06/18 03/06/18 03/07/18 16:26 21:46 05:51 WBC RBC Hgb Hct MCV MCH MCHC RDW Plt Count MPV Neutrophils % Lymphocytes % Monocytes % Eosinophils % Basophils % Nucleated RBC % Sodium Potassium Chloride Carbon Dioxide Anion Gap BUN Creatinine Creat Clearance w eGFR POC Glucometer 162 195 165 Random Glucose Calcium Total Bilirubin AST ALT Alkaline Phosphatase Total Protein Albumin 03/07/18 03/07/18 03/07/18 06:00 06:00 11:36 WBC 7.6 RBC 4.01 Hgb 12.0 Hct 35.7 MCV 88.9 MCH 29.9 MCHC 33.6 RDW 14.6 Plt Count 243 MPV 7.4 L Neutrophils % 83.2 H Lymphocytes % 9.4 D Monocytes % 7.2 Eosinophils % 0.0 D Basophils % 0.2 Nucleated RBC % 0 Sodium 143 Potassium 3.8 Chloride 109 H Carbon Dioxide 25 Anion Gap 9 BUN 12 Creatinine 0.8 Creat Clearance w eGFR > 60 POC Glucometer 144 Random Glucose 158 H Calcium 7.7 L Total Bilirubin 0.6 D AST 16 ALT 24 Alkaline Phosphatase 87 Total Protein 6.5 Albumin 3.2 L HOSPITAL COURSE: Date of Admission:03/05/18 Date of Discharge: 03/07/18 Pt is a 72 y/o F with PMH renal colic s/p lithotripsy, recent UTI (January 2018 treated with 2 Abx-unclear which), DM, HTN, HLD, DVT/PE (not on AC) who presented to ED with R flank pain and dysuria. Pt had unremarkable CXR. CTAP was notable for 6mm R renal stone and moderate hydronephrosis. Also noted were numerous bilateral stones. Pt was given fluids, flomax, and pain management. She was seen by the urologist who performed a laser lithotripsy and basket retrieval, as well as a stent placement. On admission, pt also had pos UA. She had UCx collected (ultimately negative) and was given Rocephin. Following the procedure, she was switched to Keflex to complete a 1 week course. Pt's DM was treated with BGM and ISS. Her HTN was managed with home Lisinopril. HLD was treated with home Simvastatin. Pt had h/x DVT/PE (dx in 2005) for which she was treated with coumadin for 1 year and then told to discontinue. unclear if etiology was discovered but claims she had workup done. Pt is currently in no distress and stable for discharge home. Minutes to complete discharge: 30 Discharge Summary Reason For Visit: OBSTRUCTIVE UROPATHY,ACUTE LOWER URINARY TRACT Condition: Stable - Instructions Diet, Activity, Other Instructions: Please make sure you follow up with the urologist, Dr. Calhoun within 1 week. You are being sent home with antibiotics. Take 500 mg daily for 5 days, starting 03/08/2018. Drink plenty of water. If you notice any burning or blood on urination, return to the ED. Please return to the emergency department with any new or worsening symptoms or concerns. Please follow up with your primary care physician within 72 hours. Referrals: Gildardo Staton MD [Staff Physician] - 1 Week Adolfo Calhoun MD [Staff Physician] - 1 Week Kathleen Perez MD [Primary Care Provider] - 1 Week Disposition: HOME - Home Medications Comprehensive Discharge Medication List: Ambulatory Orders Simvastatin 10 mg PO HS 05/02/14 metFORMIN HCL [Glucophage -] 500 mg PO BID 05/02/14 Aspirin [Herminio Chewable Aspirin] 81 mg PO DAILY 12/06/16 Cyanocobalamin (Vitamin B-12) [Vitamin B-12] 1,000 mcg PO DAILY 12/06/16 Lisinopril [Prinivil -] 40 mg PO DAILY 03/06/18 Acetaminophen [Tylenol .Regular Strength -] 650 mg PO Q4H PRN #24 tablet Cephalexin [Keflex] 500 mg PO DAILY #5 capsule 03/07/18 This patient is new to me today: No Emergency Visit: No Critical Care patient: No - Discharge Referral Referred to [facility] No
--- NOTE | 2018-03-08 17:22 | PATH ---
Surgical Pathology Report Patient Name: SARAI GREER Med. Rec. #: [id number] /Age/Gender: 1945 (Age: 72) / F Account: [id number] Location: [facility] MED/SURG Taken: 03/06/2018 Received: 03/07/2018 Reported: 03/08/2018 Physicians: Adolfo Barriga M.D. Specimen(s) Received CALCULI URETERAL Clinical History Obstructive uropathy, acute lower urinary tract Final Diagnosis URETERAL STONE, LASER LITHOTRIPSY AND STONE BASKETING: URETEROLITHIASIS. MACROSCOPIC DIAGNOSIS. Electronically Signed Danyelle Capone M.D. Gross Description Received fresh labeled "ureteral stone," are 3 lao-aparicio calculi ranging from 0.2-0.3 cm in greatest dimension. The specimens are sent for chemical analysis. DL/03/07/2018 saudi/03/07/2018
[2018-03-14 14:18] LABS: CA OXALATE MONOHYDR. 90 % (.); CALCIUM PHOSPHATE 10 % (.)
== END 2018-03-07 16:39 | disposition home or self-care (01) | DRG 669 ==
LOC: JER 14:13 → OBSVTOIN 21:24 → JERBED 21:24 → J7W 03-06 02:45
PROVIDERS: ADMIT Internal Medicine; ATTEND Internal Medicine
PROC: 0TC68ZZ Extirpation of Matter from Right Ureter, Via Natural or Artificial Opening Endoscopic (ICD-10-PCS; principal; 2018-03-06 17:30)
PROC: 0T768DZ Dilation of Right Ureter with Intraluminal Device, Via Natural or Artificial Opening Endoscopic (ICD-10-PCS; 2018-03-06 17:30)
PROC: BT1DYZZ Fluoroscopy of Right Kidney, Ureter and Bladder using Other Contrast (ICD-10-PCS; 2018-03-06 17:30)
DX: N13.2 Hydronephrosis with renal and ureteral calculous obstruction (principal); N39.0 Urinary tract infection, site not specified; Z86.718 Personal history of other venous thrombosis and embolism; Z86.711 Personal history of pulmonary embolism; I10 Essential (primary) hypertension; E78.5 Hyperlipidemia, unspecified; Z79.84 Long term (current) use of oral hypoglycemic drugs; E11.9 Type 2 diabetes mellitus without complications
CPT/HCPCS: 36415; 71045-TC-FY; 74176; 76000-TC-FY; 80048; 80053; 81003; 81015; 82360; 82550; 82962; 83690; 83735; 84100; 84484; 85025; 85027; 85610; 86850; 86900; 86901; 87086; 88300-TC; 93005; 93010; 94760; 97116-GP; 99285-25; J0131; J1644; J7030

== ENCOUNTER 2018-04-23 09:06 | Day surgery (SDC) | payer OTHER ==
[2018-04-20 11:27] VITALS: BMI 31.7
[2018-04-23] MEDS ORDERED: MIDAZOLAM HCL 2 MG/2 ML SINGLE DOSE VIAL ONE (11:19)
--- NOTE | 2018-04-23 11:47 | OP ---
Operative Note - Note: Operative Date: 04/23/18 Pre-Operative Diagnosis: Left kidney stone Operation: Left ESWL Findings: 6 mm Left lower pole stone Surgeon: Adolfo Calhoun (no itraoperative complications) Anesthesia: Fractional
[2018-04-23 12:11] VITALS: TEMP 97.8
[2018-04-23 13:14] VITALS: BP 125/71; PULSE 78
--- NOTE | 2018-04-23 22:05 | OP ---
DATE OF OPERATION: 04/23/2018 PREOPERATIVE DIAGNOSIS: Left renal stone. POSTOPERATIVE DIAGNOSIS: Left renal stone. PROCEDURE: Left extracorporeal shock wave lithotripsy. ANESTHESIA: Fractional. DESCRIPTION OF OPERATION: The patient was brought in the operating room and placed in supine position on the operating room table. Ultrasonography and fluoroscopy were performed. A 6-mm left lower pole stone was identified. Fractional anesthesia and antibiotics were then given to the patient. Shock wave lithotripsy was then performed; 2500 impulses at 20 joules of power are administered to the stone with excellent fragmentation of the stone under real-time ultrasonography and fluoroscopy. No complications are noted. The disposition of the patient is to the recovery room. Majo [id number]
== END 2018-04-23 13:30 | disposition home or self-care (01) ==
LOC: JASU-SURG 09:06
PROVIDERS: ATTEND Urology
PROC: 0TF4XZZ Fragmentation in Left Kidney Pelvis, External Approach (ICD-10-PCS; principal; 2018-04-23 11:00)
DX: N20.0 Calculus of kidney (principal)
CPT/HCPCS: 82962; 94760

== ENCOUNTER 2019-03-12 12:19 | Emergency (ER) | payer OTHER | END 2019-03-12 14:45 | disposition home or self-care (01) | LOC: JERFT 12:19 ==

== ENCOUNTER 2019-03-29 11:32 | Emergency (ER) | payer OTHER ==
[2019-03-29 11:46] VITALS: BP 146/67; PULSE 94; TEMP 98.2; BMI 32.1
[2019-03-29 12:07] LABS: EPI CELLS 13.7 /HPF (0-5/HPF); HYALINE CASTS 13 /lpf (0-8); URINE APPEARANCE CLOUDY; URINE BACTERIA 48.6 /hpf (NEGATIVE); URINE BILIRUBIN NEGATIVE (NEGATIVE); URINE COLOR YELLOW; URINE GLUCOSE (UA) TRACE (NEGATIVE); URINE KETONE 1+ (NEGATIVE); URINE LEUK ESTERASE 3+ (NEGATIVE); URINE NITRITE NEGATIVE (NEGATIVE); URINE PROTEIN 1+ (NEGATIVE); URINE WBC 330 /hpf (0-5)
--- NOTE | 2019-03-29 12:21 | PDOC ---
History of Present Illness - General Chief Complaint: Back Pain Stated Complaint: LWR BACK PAIN Time Seen by Provider: 03/29/19 12:00 History Source: Patient - History of Present Illness Initial Comments: 03/29/19 13:37 Chief complaint: Left flank pain Patient is a 73-year-old female with a history of kidney stones and diabetes who is having 1 week of left back/flank pain. Patient denies any fever, nausea, abdominal pain. Patient does state that she has had several episodes of soft stool over the past few days, last one this morning. Patient was recently being treated for urinary tract infection, is on amoxicillin by her primary care doctor. Her metformin dose was changed from 500 mg twice a day 2000 mg twice a day earlier this week. GENERAL/CONSTITUTIONAL: No fever, weakness. dizziness HEAD, EYES, EARS, NOSE AND THROAT: No change in vision. No ear pain or discharge. No sore throat. CARDIOVASCULAR: No chest pain RESPIRATORY: No shortness of breath or cough GASTROINTESTINAL: No pain, nausea, vomiting, diarrhea or constipation GENITOURINARY: No dysuria MUSCULOSKELETAL: No neck +back pain SKIN: No rash NEUROLOGIC: No headache, vertigo, loss of consciousness, or loss of sensation. GENERAL: The patient is awake, alert, and fully oriented, in no acute distress. HEAD: Normal with no signs of trauma. EYES: Pupils equal, round and reactive to light, sclera anicteric, conjunctiva clear. ENT: pharynx: no erythema, no exudate, uvula midline NECK: supple CHEST: clear, nontender, rr ABD: soft, nontender BACK: Mild left lower back/flank tenderness EXTREMITIES: Normal range of motion, no edema. NEUROLOGICAL: Normal speech, normal gait. SKIN: Warm, Dry Past History - Past Medical History Allergies/Adverse Reactions: Allergies Allergy/AdvReac Type Severity Reaction Status Date / Time hydromorphone [From Dilaudid] AdvReac Intermediate Verified 03/29/19 11:43 "pain pill" AdvReac Mild Nausea Uncoded 03/29/19 11:43 Home Medications: Ambulatory Orders metFORMIN HCL [Glucophage -] 1,000 mg PO BID 05/02/14 Aspirin [Herminio Chewable Aspirin] 81 mg PO DAILY 12/06/16 Cyanocobalamin (Vitamin B-12) [Vitamin B-12] 1,000 mcg PO DAILY 12/06/16 Lisinopril [Prinivil -] 40 mg PO DAILY 03/06/18 Acetaminophen [Tylenol .Regular Strength -] 650 mg PO Q4H PRN #24 tablet Sertraline HCl 50 mg PO DAILY 03/23/18 Amlodipine Besylate [Norvasc -] 5 mg PO DAILY 03/29/19 Atorvastatin Calcium 40 mg PO HS 03/29/19 Cefpodoxime Proxetil [Vantin -] 200 mg PO Q12H #14 tablet 03/29/19 COPD: No DVT: No Diabetes: Yes Disorders: Yes (kidney stones) HTN: Yes Hypercholesterolemia: Yes - Surgical History Cholecystectomy: Yes - Immunization History Immunization Up to Date: Yes - Suicide/Smoking/Psychosocial Hx Smoking History: Unknown if ever smoked Have you smoked in the past 12 months: No Hx Alcohol Use: No Drug/Substance Use Hx: No Substance Use Type: None Hx Substance Use Treatment: No *Physical Exam - Vital Signs Last Vital Signs Temp Pulse Resp BP Pulse Ox 98.2 F 94 H 18 146/67 98 03/29/19 11:44 03/29/19 11:44 03/29/19 11:44 03/29/19 11:44 03/29/19 11:44 ED Treatment Course - LABORATORY CBC & Chemistry Diagram: 03/29/19 12:45 03/29/19 12:45 - ADDITIONAL ORDERS Additional order review: Laboratory Results 03/29/19 11:50 Urine Color Yellow Urine Appearance Cloudy Urine pH 5.0 Ur Specific [place] 1.021 Urine Protein 1+ H Urine Glucose (UA) Trace Urine Ketones 1+ H Urine Blood 2+ H Urine Nitrite Negative Urine Bilirubin Negative Urine Urobilinogen 1.0 Ur Leukocyte Esterase 3+ H Urine WBC (Auto) 330 Urine Casts (Auto) 13 U Epithel Cells (Auto) 13.7 Urine Bacteria (Auto) 48.6 Medical Decision Making - Medical Decision Making 03/29/19 13:40 73-year-old female with history of diabetes, kidney stones with 1 week of left BACK/flank pain. Does not appeal acutely ill. Patient being treated for UTI with amoxicillin, recently metformin dose was increased with thousand milligrams twice a day due to hyperglycemia. Given history, patient will get baseline labs, will check a UA, and do a CT scan noncontrast to check for kidney stones or other acute issues 03/29/19 14:35 CBC and chemistries show no acute issues, UA shows urinary tract infection, CT shows no ureteral stone but stones in the kidney with dilated left renal pelvis. Will discuss with patient's urologist 03/29/19 14:46 Discussed with patient's urologist, Dr. Nicholson. Reviewed case, history, he knows the patient well, lab findings, radiology findings and clinical findings. These with assessment and plan, patient will be sent home on Vantin after getting a dose of Rocephin in the ER with good return instructions. He will see her in the office on Monday, urine culture has been sent *DC/Admit/Observation/Transfer Diagnosis at time of Disposition: Acute lower urinary tract infection - Discharge Dispostion Disposition: HOME Condition at time of disposition: Stable - Prescriptions Prescriptions: Cefpodoxime Proxetil [Vantin -] 200 mg PO Q12H #14 tablet - Referrals Referrals: Kathleen Perez MD [Primary Care Provider] - Adolfo Calhoun MD [Staff Physician] - - Patient Instructions Printed Discharge Instructions: Urinary Tract Infection Additional Instructions: Drink 2-3 L of water daily Take the vantin 1 tablet twice a day for 7 days take Acidophilus to help prevent yeast infection or stomach upset Return ER if fever, vomiting, feeling sicker Call your urologist today to follow up on Monday - Post Discharge Activity
[2019-03-29 12:24] LABS: URINE RBC 9 /hpf (0-4); YEAST FEW (NEGATIVE)
[2019-03-29 13:01] LABS: BASO % 0.6 % (0-2.0); EOS % 1.1 % (0-4.5); HEMATOCRIT 39.7 % (32.4-45.2); HEMOGLOBIN 13.6 GM/dL (10.7-15.3); LYMPH % 16.9 % (8-40); MCH 30.2 pg (25.7-33.7); MCHC 34.2 g/dl (32.0-36.0); MEAN CELL VOLUME 88.3 fl (80-96); MONO % 6.6 % (3.8-10.2); NEUT % 74.8 % (42.8-82.8); PLATELET COUNT 261 K/MM3 (134-434); RBC 4.49 M/mm3 (3.60-5.2); RDW 14.5 % (11.6-15.6); WHITE BLOOD COUNT 6.8 K/mm3 (4.0-10.0)
[2019-03-29 14:00] LABS: ALBUMIN 3.8 g/dl (3.4-5.0); BILIRUBIN,TOTAL 0.8 mg/dL (0.2-1); BLOOD UREA NITROGEN 10.9 mg/dL (7-18); CALCIUM 8.5 mg/dL (8.5-10.1); CREATININE 0.8 mg/dL (0.55-1.3); POTASSIUM 4.3 mmol/L (3.5-5.1); TOT PROT 7.7 g/dl (6.4-8.2)
[2019-03-29] MEDS ORDERED: CEFTRIAXONE 1 GM in DEXTROSE 5%-WATER - 100 ML IVPB ONE (14:50)
[2019-03-29] MEDS ORDERED: CEFTRIAXONE 1 GM/50 ML BAG ONE (14:52)
== END 2019-03-29 15:15 | disposition home or self-care (01) ==
LOC: JERFT 11:32
DX: N39.0 Urinary tract infection, site not specified (principal); E11.9 Type 2 diabetes mellitus without complications; Z87.442 Personal history of urinary calculi
CPT/HCPCS: 36415; 74176-TC; 80053; 81003; 85025; 87086; 87186; 96365; 99282-25